=== PATIENT | female | born 1995 | race Caucasian/White ===

== ENCOUNTER 2019-02-18 23:36 | Emergency (ER) | payer BC, SELFPAY ==
[2019-02-18 23:37] VITALS: BP 161/85; PULSE 124; RESP 26; TEMP 36.8; O2SAT 99; BMI 36.7
--- NOTE | 2019-02-18 23:40 | EKG12_ITS ---
Test Reason : CP Blood Pressure : / mmHG Vent. Rate : 111 BPM Atrial Rate : 111 BPM P-R Int : 170 ms QRS Dur : 096 ms QT Int : 346 ms P-R-T Axes : 051 028 011 degrees QTc Int : 470 ms Sinus tachycardia RSR' or QR pattern in V1 suggests right ventricular conduction delay Nonspecific ST and T wave abnormality Abnormal ECG Confirmed by GABY YIN, DEJON ([id number]), offline editor ROBB REN ([id number]) on 02/20/2019 10:33:29 AM Referred By: JULIA Confirmed By:GUDELIA GRIFFIN MD
--- NOTE | 2019-02-18 23:41 | ED.VIS.GEN ---
History of Present Illness Chief Complaint: Chest Pain Informant: Patient Onset: Today Context: Sudden Onset Timing: Continuous Current Severity: Moderate Maximum Severity: Moderate Narrative: The patient is a 23-year-old female with no significant medical history that presents to the emergency department with heart racing. Patient states that it is been going on for the past 45 minutes. She states that she was just getting ready to go to bed. She felt like her heart was pounding out of her chest. She denies any shortness of breath or pain. She denies any nausea or vomiting. She denies any alcohol, caffeine, or nicotine use. She states she is never had anything like this before. She is on no daily medications. She is otherwise been in her normal state of health. Prior similar symptoms: No Recent Illness/Hospitalization: No Past Medical History - Allergies and Home Meds Allergies/Adverse Reactions: Allergies No Known Allergies Allergy (Verified 12/12/15 16:35) Primary Care Physician: NOT,DEFINED [NON-STAFF] - Prior records reviewed: Yes Past Medical History: None Surgical History: no surgical history Smoking Status: Never smoker Review of Systems General: Denies: Chills, Fever, Sweats Eyes: Denies: Visual changes - bilaterally, Diplopia ENT: Denies: Rhinorrhea, Sore throat Cardiovascular: Reports: Palpitations, Heart racing. Denies: Chest pain Respiratory: Denies: Dyspnea, Cough, Dyspnea on exertion Gastrointestinal: Denies: Abdominal pain, Nausea, Vomiting, Diarrhea, Melena, Hematochezia Genitourinary: Denies: Dysuria, Hematuria, Frequency Musculoskeletal: Denies: Back pain, Extremity Pain Skin: Denies: Rash, Wounds Neurological: Denies: Headache, Weakness, Numbness Physical Exam Inital Vital Signs reviewed: Yes General: Well nourished, Well developed, No Acute Distress Head: Normocephalic, Atraumatic Eyes: Perrl, EOMI ENT: Moist mucous membranes, No rhinorrhea Neck: Supple, Nontender Cardiovascular: Regular rate, Regular rhythm, No murmurs Respiratory: No distress, CTA bilaterally, Chest nontender Abdomen: Soft, Nontender, Nondistended, Normal bowel sounds Back: Nontender, Normal Inspection Extremities: Nontender, No edema Skin: Normal color, No rash Neurological: Alert, Oriented x3, Cranial nerves II-XII grossly intact, Normal Strength, Normal Sensation Psychological: Normal affect, Normal Mood Diagnostic/Tx/Re-eval - Rhythm Strip Rhythm Strip: Sinus Tach Rate: 120 Ectopy: None - EKG Initial EKG Interpretation: No Acute Injury Pattern, Sinus Tachycardia Prior: No Prior - Medical Decision Making The patient presents with sensation that her heart was racing. EKG was done immediately on arrival. It showed sinus tachycardia at a rate of 111. There was no acute ischemia. The patient currently has no chest pain. She just feels like her heart is been racing. Metabolic work-up was pursued. The patient was given fluids and Ativan. Within 15 minutes, her heart rate was down to the 90s. The patient was found to be hypokalemic, but has no significant EKG changes. This was replaced orally. She is not had diarrhea. She states she is been eating a normal diet. I am going to place her on potassium replacement for the next week. Again, her heart rate was now in the 90s. She is totally asymptomatic. I do feel that she is safe for outpatient therapy. Impression 1. Tachycardia 2. Hypokalemia ED Disposition - Plan for ED Patient: Instructions: Palpitations, Hypokalemia Prescriptions: Potassium Chloride [K-Dur] 20 meq PO DAILY #7 tab Prescription Printed Referrals: NOT,DEFINED [NON-STAFF] -
--- NOTE | 2019-02-18 23:49 | ED.RN ---
NO OLD EKG
[2019-02-18] MEDS: 0.9% Normal Saline 1,000 ML 1000 ML IV (23:51)
[2019-02-18] MEDS: LORazepam 2 MG/ML Syringe 0.5 MG IV (23:51)
[2019-02-18 23:52] LABS: Absolute Lymphocyte Count 3.78 X10^3/uL (0.83-4.51); Absolute Neutrophil Count 3.9 X10^3/uL (2.0-7.7); Basophil# 0.06 X10^3/uL; Basophil% 0.7 % (0-1); Eosinophil# 0.48 X10^3/uL; Eosinophils% 5.3 % (0-5); Hematocrit 37.3 % (37-47); Hemoglobin 12.7 g/dL (12.0-15.0); Lymphocyte # 3.78 X10^3/ul (4.0); Lymphocyte % 42.1 % (19-41); Mean Corpuscular Hgb 29.6 pg (27.0-32.0); Mean Corpuscular Volume 86.9 fL (81-99); Monocyte# 0.74 X10^3/uL; Monocyte% 8.2 % (0-10); NRBC Flagged by Analyzer 0 % (0-5); Neutrophil % 43.5 % (47-70); Platelet Count 289 K/mm3 (150-450); RBC Distribution Width CV 11.6 % (11.6-14.6); RBC Distribution Width SD 36.5 fl (35.1-43.9); Red Blood Count 4.29 M/mm3 (4.2-5.4)
[2019-02-19 00:16] LABS: Internal QC Validated? YES +Cl - CLEAR BKGD; Pregnancy, Serum, hCG Quali. NEGATIVE Negative
[2019-02-19 00:29] LABS: ALB/GLOB Ratio 1.1 RATIO (0.9-2.4); AST(SGOT) 17 U/L (15-37); Alanine Aminotransfer ALT/SGPT 21 U/L (13-56); Alkaline Phosphatase 83 U/L (45-117); Anion Gap 10 (5-15); BUN 16 mg/dL (7-18); BUN/Creat Ratio 17.5 RATIO (10-20); Chloride 107 mmol/L (98-107); Creatinine, Serum 0.91 mg/dL (0.55-1.02); EST Glomerular Filtration Rate 82 mL/min (>60); Est Glom Filt Rate - Afr Amer 99 mL/min (>60); Estimated Creatinine Clearance 83.74 ml/min; Globulin 3.5 g/dL (2.2-4.2); Glucose 119 mg/dL (74-106); Magnesium 2.2 mg/dL (1.6-2.6); Potassium 3.1 mmol/L (3.5-5.1); Protein, Total 7.5 g/dL (6.4-8.2); Sodium Level 139 mmol/L (136-145); Thyroid Stim Hormone (TSH) 2.62 uIU/mL (0.358-3.74)
[2019-02-19 00:50] VITALS: BP 132/83; PULSE 101; RESP 18
== END 2019-02-19 01:03 | disposition home or self-care (01) ==
PROVIDERS: Emergency Provider Emergency Medicine
DX: R00.0 Tachycardia, unspecified (principal); E87.6 Hypokalemia
CPT/HCPCS: 80053; 83735; 84443; 84703; 85025; 93005; 96361; 96374; 99285; J7030; A4216

== ENCOUNTER 2020-04-16 18:20 | Outpatient (CLI) | payer BC, SELFPAY ==
[2020-04-16 18:37] VITALS: BMI 33.3
[2020-04-16 18:45] VITALS: BP 137/77; PULSE 94; TEMP 36.9; O2SAT 98
[2020-04-16 19:04] LABS: Mucous, Urine 0 SEEN /hpf (<or=2+); Red Blood Cells-Urine 0 SEEN /hpf (0-5)
[2020-04-16 19:05] LABS: Color, Urine Yellow (Yellow); Glucose, Dipstick Normal (Normal); Ketone-Dipstick Negative (Negative); Leukocyte Esterase-Dipstick 100 /ul (Negative); Nitrite-Dipstick Negative (Negative); Occult Blood-Urine Negative /ul (Negative); Protein-Dipstick Negative (Negative); Urine Bilirubin Dipstick Negative (Negative); Urine Clarity Cloudy (Clear); Urine Urobilinogen 1 mg/dl (Normal)
[2020-04-16 19:11] LABS: Amorphous Sediment 2+; Squamous Epithelial Cells - UA 0-5 SEEN /hpf (5-10)
[2020-04-16 19:12] LABS: Bacteria 1+ /hpf (None Seen)
[2020-04-16 19:13] LABS: White Blood Cells 0-5 SEEN /hpf (0-5)
[2020-04-16 19:16] LABS: Coarse Granular Cast 0-5 SEEN /lpf (0-5 /lpf); Fine Granular Cast- Urine 0 SEEN /lpf (0-5)
[2020-04-16 20:06] VITALS: BP 138/73; PULSE 88; TEMP 36.7; O2SAT 99
--- NOTE | 2020-04-17 19:56 | OB.TRI.HP_ITS ---
- Problem List (1) 34 weeks gestation of Status: Acute (2) Decreased movement Status: Acute History of Present Illness Date of Service: 04/16/20 Reason For Visit: DECREASED MOVEMENT & CRAMPING Date of Service: 04/16/20 Final FARTUN: 05/27/20 Gestational age: 34 Weeks and 2 Days History of Present Illness: Patient to labor and delivery triage with c/o cramps, and decreased movement. Patient reports no loss of fluid or vaginal bleeding. Has felt baby move but not within normal limits. Allergies No Known Allergies Allergy (Verified 04/16/20 20:09) Laboratory Studies: Laboratory Tests 04/16/20 Range/Units 18:35 Urine Color Yellow (Yellow) Urine Clarity Cloudy (Clear) Urine pH 7.0 (5.0 - 8.0) Ur Specific [place] 1.010 (1.002-1.030) Urine Protein Negative (Negative) mg/dl Urine Glucose (UA) Normal (Normal) mg/dl Urine Ketones Negative (Negative) mg/dl Urine Occult Blood Negative (Negative) /ul Urine Nitrite Negative (Negative) Urine Bilirubin Negative (Negative) mg/dL Urine Urobilinogen 1 H (Normal) mg/dl Ur Leukocyte Esterase 100 H (Negative) /ul Urine RBC 0 SEEN (0-5) /hpf Urine WBC 0-5 SEEN (0-5) /hpf Ur Squamous Epith Cells 0-5 SEEN (5-10) /hpf Amorphous Sediment 2+ Urine Bacteria 1+ (None Seen) /hpf Fine Granular Casts 0 SEEN (0-5) /lpf Coarse Granular Casts 0-5 SEEN (0-5 /lpf) /lpf Urine Mucus 0 SEEN (<or=2+) /hpf Review of Systems Constitutional: Denies: Chills, Fever, Weight Change HEENT: Denies: Head Aches, Sinus Congestion, Sinus Drainage Cardiovascular: Denies: Chest Pain, Palpitations Respiratory: Denies: Cough, Shortness of breath at rest, Sputum production Gastrointestinal: Denies: Abdominal Pain, Nausea, Vomiting Genitourinary: Denies: Dysuria Physical Exam Vitals: Vital Signs Temp Pulse BP Pulse Ox 98.0 F 88 138/73 H 99 04/16/20 20:06 04/16/20 20:06 04/16/20 20:06 04/16/20 20:06 General: Alert HEENT: Atraumatic Cardiovascular: Regular rate Lungs: Normal air movement Abdomen: Soft, Non Tender, Gravid Neurological: Cranial nerves II-XII grossly intact, Deep Tendon Reflexes 2+/4 and Symmetrical NST - FHR Rate Baby A Baseline: 125 Variability:: Moderate Accelerations:: 15 x 15 Decelerations:: None NST Reactive:: Yes FHR Category:: Category I Uterine Activity:: None noted via TOCO or palpation Impression/Plan at 34.2 weeks gestation with decreased movement and mild cramping. Category 1 tracing, NST reactive No contractions via TOCO or palpation UA collected and sent- normal patient reports feeling movement increase since arrival D/C home with PTL and kick counts reviewed Dr. Murillo updated on patient's status
== END 2020-04-16 20:20 | disposition home or self-care (01) ==
LOC: WPOUT 18:36 → WP 18:37
PROVIDERS: PCP Family Medicine; Visit Provider Advanced Practice Midwife
DX: O36.8130 Decreased fetal movements, third trimester, not applicable or unspecified (principal); Z3A.34 34 weeks gestation of pregnancy
CPT/HCPCS: 59025; 59050; 81001; 99218; G0378

== ENCOUNTER 2020-05-16 19:45 | Inpatient (IN) | payer BC, SELFPAY ==
[2020-05-16] VITALS (32 sets, daily range): BP systolic 99–155; BP diastolic 54–101; PULSE 76–125; TEMP 36.4–37.2; O2SAT 87–100; BMI 34.0
[2020-05-16] MEDS: Lactated Ringers 1,000 ML 200 ML IV (19:35)
[2020-05-16] MEDS: Lactated Ringers 500 ML 999 ML IV (19:35)
[2020-05-16 19:52] LABS: Absolute Lymphocyte Count 1.78 X10^3/uL (0.83-4.51); Absolute Neutrophil Count 9.3 X10^3/uL (2.0-7.7); Basophil# 0.04 X10^3/uL; Basophil% 0.3 % (0-1); Eosinophil# 0.36 X10^3/uL; Eosinophils% 2.9 % (0-5); Hematocrit 32.7 % (37-47); Hemoglobin 11.2 g/dL (12.0-15.0); Lymphocyte # 1.78 X10^3/ul (4.0); Lymphocyte % 14.5 % (19-41); Mean Corp Hgb Conc 34.3 g/dL (32-36); Mean Corpuscular Hgb 30.8 pg (27.0-32.0); Mean Corpuscular Volume 89.8 fL (81-99); Mean Platelet Vol. 10.8 fl (6.2-12.0); Monocyte# 0.76 X10^3/uL; Monocyte% 6.2 % (0-10); NRBC Flagged by Analyzer 0 % (0-5); Neutrophil # 9.29 X10^3/uL (2.7-7.7); Neutrophil % 75.5 % (47-70); Platelet Count 205 K/mm3 (150-450); RBC Distribution Width CV 12.7 % (11.6-14.6); RBC Distribution Width SD 41.4 fl (35.1-43.9); Red Blood Count 3.64 M/mm3 (4.2-5.4); White Blood Count 12.3 K/mm3 (4.4-11.0)
--- NOTE | 2020-05-16 20:27 | HP.PCM_ITS ---
- Problem List (1) Obesity affecting Status: Acute (2) History of depression Status: Acute (3) Anxiety Status: Acute History Date of Admission: 01/03/16 Final FARTUN: 05/27/20 Gestational age: 38 Weeks and 3 Days History of this : This is a 24 year-old, G [2], P [1001], at 38 weeks 3 days gestational age. Was seen in office and cervix found to be 5 cm and requested membrane sweep.Patient presents to labor and delivery at 1400 today with contractions. Patient progressed to 6 cm dilated and admitted to labor and delivery in active labor. Denies any headache, chest pain, shortness of breath, vaginal bleeding, leakage of fluid. Good movement. complicated by obesity, depression. Allergies buspirone [From BuSpar] Adverse Reaction (Verified 05/16/20 20:18) Other dizziness/headache escitalopram [From Lexapro] Adverse Reaction (Verified 05/16/20 20:18) Other hallucination Home Medications: Home Medications Vits [Prenatabs FA] 1 tablet PO DAILY 01/03/16 Smoking Status: Never smoker Alcohol: None Number of Fetus(es): 1 NST - FHR Rate Baby A Baseline: 125 Variability:: Moderate Accelerations:: 15 x 15 Decelerations:: None FHR Category:: Category I Uterine Activity:: Every 2-3 minutes, strong History Past Pregnancies: Past Pregnancies Delivery Date Name GA/ Weeks Outcome Route Wt Sex Labor Length Anesthesia Delivery Location Provider FOB Labs: Mom's Microbiology 05/16/20 19:45 Mucosa - Nasopharyngeal SARS-CoV-2 Antigen (Rapid) - Pending Mom's Problem List Problem Status Onset Code Obesity affecting Acute O99.210 History of depression Acute Z87.59, Z86.59 Anxiety Acute F41.9 Mom's Labs & Results 05/16/20 05/16/20 19:35 19:35 WBC 12.3 H RBC 3.64 L Hgb 11.2 L Hct 32.7 L MCV 89.8 MCH 30.8 MCHC 34.3 RDW Std Deviation 41.4 RDW Coeff of Ricarda 12.7 Plt Count 205 MPV 10.8 Immature Gran % (Auto) 0.600 Neut % (Auto) 75.5 H Lymph % (Auto) 14.5 L [place] % (Auto) 6.2 Eos % (Auto) 2.9 Baso % (Auto) 0.3 Absolute Neuts (auto) 9.3 H Absolute Lymphs (auto) 1.78 Nucleated RBC % 0 Blood Type Pending Antibody Screen Pending Course Did the patient receive Yes care? Labs Blood Type: A RH: POSITIVE RPR/VDRL/Syphilis Nonreactive Rubella status Immune HbSAg Negative Date Done: 10/17/19 Chlamydia Negative Gonorrhea Negative HIV/AIDS Non-Reactive Group B Strep: Negative Current Obstetrical History Gestational Diabetes No Incompetent Cervix No Infertility No IUGR No Macrosomia No Hypertension/Pre-eclampsia No Placenta Previa/Abruption No PTL/PROM No Uterine anomaly No Oligohydramnios No Polyhydramnios No Multiple gestation No Past Medical History Asthma No Diabetes No Hypertension No Heart disease No Mitral valve prolapse No Neurologic/Seizure disorder/ No Migraines Kidney disease No Liver disease No Varicosities No Clotting disorders/Hx of DVT No Thyroid Dysfunction No Other medical diseases No Psychiatric disorders Yes: depression, anxiety, PPD Major trauma No Abnormal PAP smear No Sleep apnea No Mammogram in the last 2 years No Social History Marital Status: Alleged father Valentino Hx Smoking No Smoking Status Never smoker How long have you used n/a substances (years)? Expected Infant Delivery Method: Spontaneous Vaginal Review of Systems Constitutional: Denies: Chills, Fever, Weight Change HEENT: Denies: Head Aches, Sinus Congestion, Sinus Drainage Cardiovascular: Denies: Chest Pain, Palpitations Respiratory: Denies: Cough, Shortness of breath at rest, Sputum production Gastrointestinal: Denies: Abdominal Pain, Nausea, Vomiting Genitourinary: Denies: Dysuria Musculoskeletal: Denies: Joint Pain, Joint Tenderness Skin: Denies: Rash, Wounds Neurological: Denies: Numbness, Tingling, Focal weakness Psychiatric: Denies: Anxiety, Depression, Homicidal Ideations, Suicidal Ideations Hematologic/ Lymphatic: Denies: Easy Bruising, Easy Bleeding Physical Exam Vitals: Vital Signs Temp Pulse BP Pulse Ox 98.9 F 99 145/90 H 100 05/16/20 20:14 05/16/20 20:15 05/16/20 20:15 05/16/20 20:14 General: Alert, Oriented x3, Cooperative HEENT: Atraumatic, Normocephalic Cardiovascular: Regular rate, Regular Rhythm, No murmurs Lungs: Clear to auscultation, Normal air movement, No rhonchi, No wheeze Abdomen: Bowel Sounds Present, Soft Extremities:: No edema Neurological: Deep Tendon Reflexes 2+/4 and Symmetrical. Negative for: Clonus CARD MOUNTER: Normal external genitalia Estimated gestational size: Appropriate for gestational size Presentation: Cephalic Cervix Dilation (cm): 6.5 - AROM moderate amount of clear fluid. Tolerated well. Station: -1 Effacement (%): 80 Assessment/Plan All Active Problems 34 weeks gestation of (Acute) Decreased movement (Acute) Obesity affecting (Acute) History of depression (Acute) Anxiety (Acute) This is a 24 year-old, G [2], P [1001], at 38 weeks 3 days gestational age. A:Active Labor at term Category 1 FHT P: 1) Admit to labor and delivery 2) Routine labs 3) GBS negative 4) Continuous EFM 5) Epidural for pain management 6) collaborative physician and notified of patient status and admission.
[2020-05-16] MEDS: fentaNYL-bupivacaine (epidural) 100 ML BAG EPIDURAL (20:48)
[2020-05-16] MEDS: Oxytocin 30 units/NS 500 ml 30 UNITS/500 ML IV.SOLN 334 UNITS IV (21:13)
--- NOTE | 2020-05-16 21:25 | PCM.OPRPT ---
Problem List (1) Obesity affecting Status: Acute (2) History of depression Status: Acute (3) Anxiety Status: Acute (4) Vaginal delivery Status: Acute Vaginal Delivery Maternal Presentation: Active Labor Amniotic Membrane Rupture Type: Artificial Amniotic Fluid Description: Clear, Cloudy Final FARTUN: 05/27/20 Final FARTUN Source: US <20 weeks Gestational age: 38 Weeks and 3 Days Date of Procedure: 05/16/20 Pre-Operative Diagnosis: Active labor at term Post-Operative Diagnosis: Surgery/ Procedure Performed: Spontaneous Vaginal Delivery Type of Anesthesia: Epidural Description of Procedure: Progressed to complete with strong urge to push. Epidural placed but minimal relief from pelvic pressure. of viable male over intact perineum. Apgars 7, 9. Infant head delivered and body forthcoming. Cord wrapped around the neck x1 loose, delivered through. Infant placed on maternal abdomen. Mouth and nares suction for secretions. Spontaneous cry. Cord clamped and cut after 1 minute delayed clamping. Infant with weak cry and taken to [facility] by awaiting nursery staff for further assessment. Pitocin started for active third stage management with strong cry, good color and normal heart rate and back to mom for skin to skin. Placenta delivered with expression intact, and three-vessel cord. Perineum inspected and intact, no laceration or repair required. Fundus firm, EBL 100 mL. Vaginal sweep completed by me. Sponge and instrument count correct. Mom and baby stable, family bonding well. Planning to breast-feed. Dr. Jeff notified of delivery. Presentation: Vertex Placental Delivery Description: Spontaneous Placenta Disposition: [facility] Cord Vessel Description: 3 Vessels Nuchal Cord Compression: Without compression Cord Entanglement: Around neck x 1, loose Estimated Blood Loss: 100 ml A gender: Male (1 minute): 7 (5 minute): 9 Episiotomy Description: None Laceration: None Medications given after delivery: IV Pitocin
[2020-05-16] MEDS: 0.9% Saline Lock 10 ML Syringe IV (23:58)
[2020-05-17 03:03] VITALS: BP 123/76; PULSE 69; RESP 16; TEMP 36.5
[2020-05-17] MEDS: Ibuprofen 600 MG Tablet PO ×2 (06:09→15:22)
[2020-05-17] MEDS: Acetaminophen 500 MG Tablet 1000 MG PO ×2 (09:01→21:02)
[2020-05-17 09:12] VITALS: BP 118/74; PULSE 82; RESP 16; TEMP 36.6
[2020-05-17 12:53] VITALS: BP 117/81; PULSE 79; RESP 16; TEMP 36.1
[2020-05-17 13:14] LABS: Hematocrit 33.6 % (37-47); Hemoglobin 11.4 g/dL (12.0-15.0); Mean Corp Hgb Conc 33.9 g/dL (32-36); Mean Corpuscular Hgb 30.6 pg (27.0-32.0); Mean Corpuscular Volume 90.1 fL (81-99); Mean Platelet Vol. 10.7 fl (6.2-12.0); Platelet Count 225 K/mm3 (150-450); RBC Distribution Width CV 12.3 % (11.6-14.6); RBC Distribution Width SD 39.9 fl (35.1-43.9); Red Blood Count 3.73 M/mm3 (4.2-5.4); White Blood Count 12.1 K/mm3 (4.4-11.0)
--- NOTE | 2020-05-17 13:23 | CASEMGMT ---
Social Work Assessment Labor and Delivery Unit Date/Time of Referral: 05/17/20, 1:50am Referred by: Noni Nicholson CNM Date/Time of Intervention: 05/17/20, 1:00pm Reason for referral: History of PPD, anxiety, depression History obtained from: FOREIGN, JARED Household composition: JARED CARRASQUILLO, 4 yr old Argelia and now baby Casper. MOB and FOJustus have been together for 7 years. Baby's parent/guardian status: MOB/FOB guardians of baby Medical history: MOB: Obesity, hx of PPD and anxiety. Baby: Born 05/16/20, 21:15, 3.05kg. Apgars at 1 min and 5 min, 7 and 9. 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 Educational Status: Both MOB and FOB finished high school Financial Status: No concerns. 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 MOB works at [employer]. MOB on maternity leave and will return to work. They have a baby counselor and JARED's mother also helps with childcare. Infant Supplies: They have all supplies including crib, bassinet, diapers, clothing, car seat. MOB plans to breast feed. Childcare/Caregivers: [employer], JARED's mother. Also MOB's mother, siblings of MOB and FOB as well available to help. Transportation: They have 2 cars Programs/Agencies involved: None Children Services/Legal Issues: None Behavioral Health: Substance abuse: None for MOB or JARED. No tox screens completed. Safety: No concerns regarding safety Mental Health: JARED--has history of depression, has a counselor but would like to find a new counselor as he does not feel he connects with current counselor. JARED has been on and off of medication for depression, wants to look to trying something different. JARED states has been in counseling many times. JARED talked about a difficult relationship w/his own father and just had a breakthrough recently with his father and their relationship. He talked about not wanting to carry his anger with his father to his children, and has started recently gaining more insight into his relationship w/his father. MOB--She states has anxiety and sees a counselor one time per week virtually with [facility]. She plans to continue this. She states she did struggle with after the of her last child. She states she has been on meds in the past but did not like the side effects, and has not been taking anything while . She states the counseling has been very helpful for her and she does not feel she needs to go back on meds. She states she would consider it if needed for a short time, should she struggle again with depression. Depression/Anxiety, Shaken Baby, Safe Sleeping: SW gave MOB and FOB information on these topics and reviewed the information with them. SW also gave them information on [facility], a list of [facility] Resources, highlighting the crisis number, and a list of counseling agencies in [facility]. SW encourage FOB to review the list or to call the number on the back of his insurance card to find a new in network provider for himself. He states he has been going to [facility] on the recommendation of his mom(she goes there due to involvement with [facility]), gut he is realizing that they focus more on people with substance abuse issues as well. He does not have this issue however and plans to find a new counselor for himself. FOB was holding baby while SW was speaking with MOB and FOB, handed the baby to MOB while we were talking stating the baby was hungry. Both MOB and FOB appropriate in holding and handling of the baby. Both FOB and MOB open in speaking w/SW, appropriate. No concerns at this time, baby home with MOB and FOB at discharge. WILLIS Burgess
--- NOTE | 2020-05-17 14:03 | PCM.PN.OB ---
Patient Problems: Active and Suspected Problems Obesity affecting (Acute) History of depression (Acute) Anxiety (Acute) Vaginal delivery (Acute) Subjective: Denies complaints - Physical Exam Vitals/I&O's: Vital Signs Temp Pulse Resp BP Pulse Ox 97.0 F L 79 16 117/81 H 99 05/17/20 12:53 05/17/20 12:53 05/17/20 12:53 05/17/20 12:53 05/16/20 23:20 Oxygen Delivery Method Room Air Weight: 198 lb Body Mass Index (BMI) 34.0 Intake and Output for Last 24 Hours 05/15/20 05/16/20 05/17/20 23:59 23:59 23:59 Intake Total 1820 / 1820 Output Total 1200 / 1200 Balance 1820 / 1820 -1200 / -1200 General: Alert, Oriented x3 Abdomen: Soft, Non Tender, Non-Distended - ff mid & below umb Extremities: No Calf Tenderness Microbiology Past 72 Hours 05/16/20 19:45 Mucosa - Nasopharyngeal SARS-CoV-2 Antigen (Rapid) - Final Laboratory Results 05/16/20 19:35: WBC 12.3 H, RBC 3.64 L, Hgb 11.2 L, Hct 32.7 L, MCV 89.8, MCH 30.8, MCHC 34.3, RDW Std Deviation 41.4, RDW Coeff of Ricarda 12.7, Plt Count 205, MPV 10.8, Immature Gran % (Auto) 0.600, Neut % (Auto) 75.5 H, Lymph % (Auto) 14.5 L, [place] % (Auto) 6.2, Eos % (Auto) 2.9, Baso % (Auto) 0.3, Absolute Neuts (auto) 9.3 H, Absolute Lymphs (auto) 1.78, Nucleated RBC % 0 05/16/20 19:35: Blood Type A POSITIVE, Antibody Screen NEGATIVE 05/17/20 13:00: WBC 12.1 H, RBC 3.73 L, Hgb 11.4 L, Hct 33.6 L, MCV 90.1, MCH 30.6, MCHC 33.9, RDW Std Deviation 39.9, RDW Coeff of Ricarda 12.3, Plt Count 225, MPV 10.7 Current Medications Acetaminophen (Acetaminophen 500 Mg Tablet) 1,000 mg PO Q8H PRN PRN PRN Reason: Pain Score 1-3 Last Admin: 05/17/20 09:01 Dose: 1,000 mg Documented by: Bisacodyl (Bisacodyl 10 Mg Suppository) 10 mg RC UD PRN PRN Reason: If no BM Dibucaine (Dibucaine 30 Gm Tube) 1 applic TOPICAL TID PRN PRN; Protocol PRN Reason: Discomfort Hydrocortisone (Hydrocortisone 2.5% Crm) 1 applic TOPICAL TID PRN PRN; Protocol PRN Reason: Discomfort Ibuprofen (Ibuprofen 600 Mg Tablet) 600 mg PO Q6H PRN PRN PRN Reason: Pain Score 1-3 Last Admin: 05/17/20 06:09 Dose: 600 mg Documented by: Methylergonovine Maleate (Methylergonovine 0.2 Mg/Ml Ampul) 0.2 mg IM X1 PRN PRN Reason: Excess bleeding/uterine atony Ondansetron HCl (Ondansetron 4 Mg/2 Ml Vial) 4 mg IV Q4H PRN PRN PRN Reason: Nausea Senna/Docusate Sodium (Senna/Docusate Sodium 1 Tablet) 1 - 2 tablet PO DAILY PRN PRN PRN Reason: Constipation Simethicone (Simethicone 80 Mg Tablet) 80 mg PO PCHS PRN PRN Reason: Indigestion/Stomach pain Sodium Chloride (0.9% Saline Lock 10 Ml Syringe) 5 - 15 ml IV UD PRN PRN Reason: SALINE FLUSH Last Admin: 05/16/20 23:58 Dose: 10 ml Documented by: Medical Necessity - Tobacco Use Smoking Status: Never smoker Assessment/Plan All Active Problems 34 weeks gestation of (Acute) Decreased movement (Acute) Obesity affecting (Acute) History of depression (Acute) Anxiety (Acute) Vaginal delivery (Acute) PPD#1 Routine care
[2020-05-17 15:30] VITALS: BP 132/70; PULSE 78; RESP 16; TEMP 36.6
[2020-05-17 21:05] VITALS: BP 123/69; PULSE 83; RESP 18; TEMP 36.6; O2SAT 98
[2020-05-18 02:12] VITALS: BP 121/78; PULSE 83; RESP 16; O2SAT 97
[2020-05-18] MEDS: Ibuprofen 600 MG Tablet PO (02:30)
[2020-05-18 08:55] VITALS: BP 125/76; PULSE 78; RESP 16; TEMP 36.9
--- NOTE | 2020-05-18 09:27 | PCM.PN.OB ---
Patient Problems: Active and Suspected Problems Obesity affecting (Acute) History of depression (Acute) Anxiety (Acute) Vaginal delivery (Acute) Subjective: pain well controlled, average lochia - Physical Exam Vitals/I&O's: Vital Signs Temp Pulse Resp BP Pulse Ox 98.5 F 78 16 125/76 H 97 05/18/20 08:55 05/18/20 08:55 05/18/20 08:55 05/18/20 08:55 05/18/20 02:12 Oxygen Delivery Method Room Air Weight: 89.811 kg Body Mass Index (BMI) 34.0 Intake and Output for Last 24 Hours 05/16/20 05/17/20 05/18/20 23:59 23:59 23:59 Intake Total 1820 / 1820 Output Total 1200 / 1200 Balance 1820 / 1820 -1200 / -1200 General: Alert, Cooperative, No apparent distress Microbiology Past 72 Hours 05/16/20 19:45 Mucosa - Nasopharyngeal SARS-CoV-2 Antigen (Rapid) - Final Laboratory Results 05/17/20 13:00: WBC 12.1 H, RBC 3.73 L, Hgb 11.4 L, Hct 33.6 L, MCV 90.1, MCH 30.6, MCHC 33.9, RDW Std Deviation 39.9, RDW Coeff of Ricarda 12.3, Plt Count 225, MPV 10.7 Current Medications Acetaminophen (Acetaminophen 500 Mg Tablet) 1,000 mg PO Q8H PRN PRN PRN Reason: Pain Score 1-3 Last Admin: 05/17/20 21:02 Dose: 1,000 mg Documented by: Bisacodyl (Bisacodyl 10 Mg Suppository) 10 mg RC UD PRN PRN Reason: If no BM Dibucaine (Dibucaine 30 Gm Tube) 1 applic TOPICAL TID PRN PRN; Protocol PRN Reason: Discomfort Hydrocortisone (Hydrocortisone 2.5% Crm) 1 applic TOPICAL TID PRN PRN; Protocol PRN Reason: Discomfort Ibuprofen (Ibuprofen 600 Mg Tablet) 600 mg PO Q6H PRN PRN PRN Reason: Pain Score 1-3 Last Admin: 05/18/20 02:30 Dose: 600 mg Documented by: Methylergonovine Maleate (Methylergonovine 0.2 Mg/Ml Ampul) 0.2 mg IM X1 PRN PRN Reason: Excess bleeding/uterine atony Ondansetron HCl (Ondansetron 4 Mg/2 Ml Vial) 4 mg IV Q4H PRN PRN PRN Reason: Nausea Senna/Docusate Sodium (Senna/Docusate Sodium 1 Tablet) 1 - 2 tablet PO DAILY PRN PRN PRN Reason: Constipation Simethicone (Simethicone 80 Mg Tablet) 80 mg PO PCHS PRN PRN Reason: Indigestion/Stomach pain Sodium Chloride (0.9% Saline Lock 10 Ml Syringe) 5 - 15 ml IV UD PRN PRN Reason: SALINE FLUSH Last Admin: 05/16/20 23:58 Dose: 10 ml Documented by: Medical Necessity - Tobacco Use Smoking Status: Never smoker Assessment/Plan All Active Problems 34 weeks gestation of (Acute) Decreased movement (Acute) Obesity affecting (Acute) History of depression (Acute) Anxiety (Acute) Vaginal delivery (Acute) PPD#2 doing well ready for d/c infant and doing well
--- NOTE | 2020-05-18 09:28 | DCINST_ITS ---
Discharge Diet: No Restrictions Discharge Activity: Return to Normal Activity, May not drive while taking narcotic pain medications., May Shower May resume sexual activity in: 4-6 weeks Additional Activity Instructions:: Nothing in the vagina for 4-6 weeks. You may return to work/school in 6 weeks. Call your doctor if your incision/area has: Continuous Slow Oozing, Sudden Increased Bleeding, Increased Pain/ Swelling, Increased Redness, Foul Smelling Discharge Additional Instructions: If you experience any of the following, contact your healthcare provider. * Bleeding that soaks a pad every hour for 2 hours * Fever 100.4 or higher * Unrelieved incision or abdominal pain * Swelling, redness, discharge or bleeding from your incision or episiotomy site * Your incision begins to separate * Problems urinating (including inability to urinate or burning while urinating). * Visual changes * Severe headache * Flu-like symptoms * Pain or redness in one of both of your breasts * Pain, warmth, tenderness or swelling in your legs, especially the calf area * Frequent nausea and vomiting * Symptoms of depression or anxiety If you experience any of the following, call 911 or go to the nearest Emergency Room. * Chest pain * Problems breathing * Seizure activity * Partial or complete paralysis of a body part, slurred speech, weakness or drooping of the face, or a sudden inability to walk or hold your balance Allergies/Adverse Reactions: Allergies buspirone [From BuSpar] Adverse Reaction (Verified 05/16/20 20:18) Other dizziness/headache escitalopram [From Lexapro] Adverse Reaction (Verified 05/16/20 20:18) Other hallucination Medications to take at Discharge Vits [Prenatabs FA] 1 tablet PO DAILY 01/03/16 Please Follow Up With: Sheila Hurt MD - [phone] When: Call to make an appointment with your doctor's office in 1-2 and 6 weeks or as needed Primary Care Physician: Zechariah Chaudhary MD [Primary Care Provider] - Test Results: Test results from this visit will be discussed in further detail at your follow- up appointment, if applicable.
--- NOTE | 2020-05-18 09:28 | PCM.DCVAG ---
Discharge Diet: No Restrictions Discharge Activity: Return to Normal Activity, May not drive while taking narcotic pain medications., May Shower May resume sexual activity in: 4-6 weeks Additional Activity Instructions:: Nothing in the vagina for 4-6 weeks. You may return to work/school in 6 weeks. Call your doctor if your incision/area has: Continuous Slow Oozing, Sudden Increased Bleeding, Increased Pain/ Swelling, Increased Redness, Foul Smelling Discharge Additional Instructions: If you experience any of the following, contact your healthcare provider. Bleeding that soaks a pad every hour for 2 hours Fever 100.4 or higher Unrelieved incision or abdominal pain Swelling, redness, discharge or bleeding from your incision or episiotomy site Your incision begins to separate Problems urinating (including inability to urinate or burning while urinating). Visual changes Severe headache Flu-like symptoms Pain or redness in one of both of your breasts Pain, warmth, tenderness or swelling in your legs, especially the calf area Frequent nausea and vomiting Symptoms of depression or anxiety If you experience any of the following, call 911 or go to the nearest Emergency Room. Chest pain Problems breathing Seizure activity Partial or complete paralysis of a body part, slurred speech, weakness or drooping of the face, or a sudden inability to walk or hold your balance Allergies/Adverse Reactions: Allergies buspirone [From BuSpar] Adverse Reaction (Verified 05/16/20 20:18) Other dizziness/headache escitalopram [From Lexapro] Adverse Reaction (Verified 05/16/20 20:18) Other hallucination Medications to take at Discharge Vits [Prenatabs FA] 1 tablet PO DAILY 01/03/16 Please Follow Up With: Sheila Hurt MD - [phone] When: Call to make an appointment with your doctor's office in 1-2 and 6 weeks or as needed Primary Care Physician: Zechariah Chaudhary MD [Primary Care Provider] - Test Results: Test results from this visit will be discussed in further detail at your follow-up appointment, if applicable.
== END 2020-05-18 12:20 | disposition home or self-care (01) | DRG 807 ==
LOC: WPOUT 19:48 → WP 19:48
PROVIDERS: Admitting Provider Advanced Practice Midwife; PCP Family Medicine; Referring Provider Advanced Practice Midwife; Visit Provider Advanced Practice Midwife
DX: O69.81X0 Labor and delivery complicated by cord around neck, without compression, not applicable or unspecified (principal); Z37.0 Single live birth; O99.214 Obesity complicating childbirth; E66.9 Obesity, unspecified; Z3A.38 38 weeks gestation of pregnancy; Z87.59 Personal history of other complications of pregnancy, childbirth and the puerperium
CPT/HCPCS: 59025; 59050; 85025; 85027; 86850; 86900; 86901; 87426; 99218; J7120; A4216; G0378

== ENCOUNTER → 2020-09-08 | Outpatient (CLI) | payer BC, SELFPAY ==
[2020-05-16 14:30] VITALS: BMI 34.0
== END | disposition home or self-care (01) ==
LOC: LABSPEC 15:30
PROVIDERS: PCP Family Medicine; Referring Provider Otolaryngology; Visit Provider Otolaryngology
DX: Z20.828 Contact with and (suspected) exposure to other viral communicable diseases (principal)
CPT/HCPCS: 87635; U0005; U0003

== ENCOUNTER → 2020-09-13 | Outpatient (CLI) | payer BC, SELFPAY ==
[2020-05-16 14:30] VITALS: BMI 34.0
--- NOTE | 2020-09-13 11:02 | TONS_PTH ---
PATIENT: PATRICIA HEART LOC: [facility] U#:[id number] AGE/SX: 24/ ROOM: RE09/13/[address]: Dr. Satinder Villegas MD : [id number] BED: DIS: 09/13/2020 SPEC #: [id number] RECD: 09/13/20 14:58 STATUS: DEBORA PORRAS #: [id number] NIRMAL: 09/13/20 11:[address]: Satinder Villegas DEPT: SURGICAL PATHOLOGY RECD BY: Carlyn Wellington ENTERED: 09/14/20 09:26 SP TYPE: TONSILS OTHR DR: Dr. Zechariah Chaudhary MD [facility] Tissues: Tonsil, NOS Procedures: Surgery Specimen Level III HEADER OPERATION: Tonsillectomy PRE-OP DIAGNOSIS: Chronic tonsillitis TISSUE SUBMITTED: Tonsils, right pinned MICROSCOPIC DIAGNOSIS Right tonsil, tonsillectomy: Benign lymphoid hyperplasia. Organisms consistent with actinomyces. Left tonsil, tonsillectomy: Benign lymphoid hyperplasia. Organisms consistent with actinomyces. AM:tao 09/15/2020 COMMENT Case has been reviewed in consultation with Dr. Templeton who concurs with the above diagnosis. QUINTON:PORTILLO MICROSCOPIC DESCRIPTION Slides are reviewed. GROSS DESCRIPTION Received is one container labeled with the patient's name and designated tonsils - pin on right are two tonsils that in aggregate weigh 7.2 gm. The right tonsil has a pin on it and measures 3 x 2 x 1.5 cm. The left tonsil measures 3 x 2 x 1 cm. Sections of the right tonsil reveal a mendoza-white solid nodule measuring 1.5 x 1 x 1 cm. It is inked with black ink. The external surfaces are pink-mendoza, smooth, glistening and somewhat lobulated. Focally they are hemorrhagic, granular and bear cautery artifact. Serial cross sections through the tonsils reveal normal tonsillar architecture. Sections are submitted in two cassettes as follows: 1-3 - right tonsil, 4- left tonsil. / PORTILLO:tao 09/14/20 TC:5 CPT: 69291 x2
== END | disposition home or self-care (01) ==
LOC: LABSPEC 15:20
PROVIDERS: PCP Family Medicine; Visit Provider Otolaryngology
DX: J35.01 Chronic tonsillitis (principal)
CPT/HCPCS: 88304

== ENCOUNTER 2021-06-28 22:45 | Inpatient (IN) | payer BC, SELFPAY ==
[2021-06-28 20:10] VITALS: BP 134/85; PULSE 102; PULSE 96; O2SAT 99
[2021-06-28 20:11] VITALS: TEMP 36.4
[2021-06-28 23:11] VITALS: BMI 33.9
[2021-06-28 23:40] LABS: Absolute Lymphocyte Count 1.78 X10^3/uL (0.83-4.51); Absolute Neutrophil Count 7.6 X10^3/uL (2.0-7.7); Basophil# 0.03 X10^3/uL; Basophil% 0.3 % (0-1); Eosinophils% 1.9 % (0-5); Hematocrit 31.2 % (37-47); Hemoglobin 10.3 g/dL (12.0-15.0); Lymphocyte # 1.78 X10^3/ul (0.83-4.51); Lymphocyte % 17.2 % (19-41); Mean Corpuscular Hgb 28.8 pg (27.0-32.0); Mean Corpuscular Volume 87.2 fL (81-99); Mean Platelet Vol. 11.2 fl (6.2-12.0); Monocyte# 0.65 X10^3/uL; Monocyte% 6.3 % (0-10); NRBC Flagged by Analyzer 0 % (0-5); Neutrophil # 7.61 X10^3/uL (2.7-7.7); Neutrophil % 73.5 % (47-70); Platelet Count 179 K/mm3 (150-450); RBC Distribution Width CV 12.4 % (11.6-14.6); RBC Distribution Width SD 39.7 fl (35.1-43.9); Red Blood Count 3.58 M/mm3 (4.2-5.4); White Blood Count 10.4 K/mm3 (4.4-11.0)
[2021-06-28 23:47] VITALS: BP 125/86; PULSE 101; O2SAT 99
[2021-06-28] MEDS: Lactated Ringers 500 ML 999 ML IV (23:55)
[2021-06-29] VITALS (83 sets, daily range): BP systolic 89–172; BP diastolic 53–90; PULSE 67–148; RESP 16–18; TEMP 35.7–36.6; O2SAT 92–100
[2021-06-29] MEDS: Ondansetron 4 MG/2 ML Vial IV ×2 (00:06→04:51)
[2021-06-29] MEDS: Lactated Ringers 1,000 ML 200 ML IV ×2 (00:26→04:47)
[2021-06-29] MEDS: fentaNYL-bupivacaine (epidural) 100 ML BAG EPIDURAL (01:30)
[2021-06-29] MEDS: Mag Hydrox/Al Hydrox/Simeth 30 ML UDC PO (01:46)
[2021-06-29] MEDS: Lactated Ringers 500 ML 999 ML IV ×2 (03:35→04:30)
--- NOTE | 2021-06-29 04:19 | PCM.HP.OB ---
HPI - General General Date of Admission: 06/28/21 HPI Narrative PATRICIA HEART, is a 25 F who presents at 36w2d with contractions. No leakage of fluid or vaginal bleeding. Contractions on and off for several hours and increased in pain and intensity. FARTUN by first trimester US. complicated by short interval and history of anxiety and depression. Maternal Data Information FARTUN Calculator Estimated Delivery Date Method Current WG Current Estimate 07/25/21 Manual 36w 2d PFSH PFSH Home Medications vit,[id number] [Prenatabs FA] 1 tab PO DAILY 01/03/16 [History Last Taken 06/28/21 08:00] ferrous sulfate [iron] 325 mg PO DAILY 06/29/21 [History Last Taken 06/28/21 08:00] Allergy/AdvReac Type Severity Reaction Status Date / Time buspirone [From BuSpar] AdvReac Other Verified 06/29/21 00:28 escitalopram [From Lexapro] AdvReac Other Verified 06/29/21 00:28 Surgical History (Updated 06/28/21 @ 23:14 by Kandace Strange) History of surgery Social History Smoking Status: Never smoker History Elective abortions Hx Para 2 Spontaneous abortions Hx # Term Pregnancies Ectopic pregnancies Hx # Pregnancies Multiple births # of living children NST FHR Rate Baby A Baseline: 120 Variability:: Moderate Accelerations:: 15 x 15 Decelerations:: Variable FHR Category:: Category II Uterine Activity:: every 2-3 minutes Difficulty palpating and tracing with EFM ROS Constitutional Constitutional: Reports systems reviewed and no addt'l complaints, except as documented; Denies headache(s) Eyes Eyes: Denies acute decrease in peripheral vision, blurry vision or change in vision ENT HEENT: Reports systems reviewed and no addt'l complaints, except as documented Cardiovascular Cardiovascular: Denies chest pain or dizziness Respiratory/Chest Respiratory/Chest: Denies cough, dyspnea, dyspnea on exertion, shortness of breath at rest or shortness of breath with exertion Gastrointestinal Gastrointestinal: Denies abdominal pain, diarrhea, nausea or vomiting Genitourinary Genitourinary: Denies abdominal discomfort or movement Musculoskeletal Musculoskeletal: Denies limited range of motion Integumentary Integumentary: Reports systems reviewed and no addt'l complaints, except as documented Neurologic Neurologic: Reports systems reviewed and no addt'l complaints, except as documented Psychiatric Psychiatric: Reports systems reviewed and no addt'l complaints, except as documented Endocrine Endocrinology: Reports systems reviewed and no addt'l complaints, except as documented Hematologic/Lymphatic Hematologic/Lymphatic: Reports systems reviewed and no addt'l complaints, except as documented Allergic/Immunologic Allergic/Immunologic: Reports systems reviewed and no addt'l complaints, except as documented Vital Signs Vital Signs Vital Signs: 06/28/21 20:10 06/28/21 20:11 06/28/21 23:47 Temperature 97.6 F L Temperature Source Temporal Pulse Rate 102 H 101 H Blood Pressure 134/85 H 125/86 H BP Systolic 134 125 BP Diastolic 85 86 Pulse Ox 99 99 06/29/21 00:44 06/29/21 00:46 06/29/21 00:49 Temperature Temperature Source Pulse Rate 107 H 99 106 H Blood Pressure 168/89 H BP Systolic 168 BP Diastolic 89 Pulse Ox 100 100 06/29/21 00:53 06/29/21 00:54 06/29/21 00:57 Temperature Temperature Source Pulse Rate 97 106 H 111 H Blood Pressure 147/79 H 172/86 H BP Systolic 147 172 BP Diastolic 79 86 Pulse Ox 100 06/29/21 00:59 06/29/21 01:02 06/29/21 01:04 Temperature Temperature Source Pulse Rate 121 H 114 H 111 H Blood Pressure 154/77 H BP Systolic 154 BP Diastolic 77 Pulse Ox 100 100 06/29/21 01:07 06/29/21 01:09 06/29/21 01:12 Temperature Temperature Source Pulse Rate 107 H 118 H 126 H Blood Pressure 151/83 H 165/77 H BP Systolic 151 165 BP Diastolic 83 77 Pulse Ox 100 06/29/21 01:14 06/29/21 01:17 06/29/21 01:19 Temperature Temperature Source Pulse Rate 132 H 134 H 133 H Blood Pressure 138/77 H BP Systolic 138 BP Diastolic 77 Pulse Ox 100 100 06/29/21 01:24 06/29/21 01:26 06/29/21 01:28 Temperature Temperature Source Pulse Rate 142 H 115 H 125 H Blood Pressure 132/76 H 145/72 H BP Systolic 132 145 BP Diastolic 76 72 Pulse Ox 98 06/29/21 01:29 06/29/21 01:32 06/29/21 01:34 Temperature Temperature Source Pulse Rate 133 H 123 H 136 H Blood Pressure 132/63 H BP Systolic 132 BP Diastolic 63 Pulse Ox 100 100 06/29/21 01:37 06/29/21 01:39 06/29/21 01:42 Temperature Temperature Source Pulse Rate 131 H 109 H 122 H Blood Pressure 140/71 H 134/73 H BP Systolic 140 134 BP Diastolic 71 73 Pulse Ox 100 06/29/21 01:44 06/29/21 01:49 06/29/21 02:19 Temperature Temperature Source Pulse Rate 123 H 127 H 99 Blood Pressure 117/70 144/70 H BP Systolic 117 144 BP Diastolic 70 70 Pulse Ox 100 06/29/21 02:47 06/29/21 03:18 06/29/21 03:34 Temperature 96.3 F L Temperature Source Pulse Rate 88 98 88 Blood Pressure 105/53 L 91/55 L BP Systolic 105 91 BP Diastolic 53 55 Pulse Ox 100 100 06/29/21 03:35 06/29/21 04:11 Temperature 96.8 F L 96.9 F L Temperature Source Temporal Temporal Pulse Rate 90 Blood Pressure 116/61 BP Systolic 116 BP Diastolic 61 Pulse Ox Weight Weight: 197 lb 9.6 oz Body Mass Index (BMI) 33.9 Physical Exam Const alert and oriented x3 General Appearance: cooperative Orientation / Consciousness: awake, oriented to person, oriented to place and oriented to time Exam Limitations: no limitations HEENT normocephalic Head and Scalp: normal to inspection, normocephalic and atraumatic Face and Sinus: normal facial exam Eyes General Eye: normal appearance of both eyes Neck full ROM Chest Chest: symmetrical chest wall rise Resp normal respiratory effort and normal air movement Auscultation: clear to auscultation bilaterally Cardio regular rate, regular rhythm, S1 normal heart sound, S2 normal heart sound, no murmurs, no rub, no gallops and no clicks GI normal to inspection, nondistended, normoactive bowel sounds and non-tender appearance of the vagina normal Bladder / Kidney Exam: no CVA tenderness Manual OB Exam: dilated 6m Back/Spine normal ROM Extremity normal to inspection and full ROM Skin no rashes or lesions noted Neuro oriented x3, CN's II-XII intact bilaterally and moves all extremities Sensorium / Orientation: awake, alert and oriented to person Motor Exam: clonus absent Deep Tendon Reflexes: Rt Patellar (L4): 2+ and Lt Patellar (L4): 2+ Labs Labs Labs: Blood Type A POSITIVE Antibody Screen NEGATIVE Hct 31.2 % (37-47) L Hgb 10.3 g/dL (12.0-15.0) L Rubella IgG Antibody 57.5 IU/mL Hep Bs Antigen Negative (Negative) Glucose 1 Hr 50 gm 96 mg/dL (70-140) Group B Strep DNA Negative (Negative) Rhogam given: No Miscellaneous Test RPR negative HIV non reactive Hep C negative HBsAG negative GBS negative Assessment & Plan (1) 36 weeks gestation of : (2) Active labor: (3) History of anxiety: (4) History of depression: (5) History of depression: (6) Obesity affecting : PLAN: 1) Admit to Labor and delivery in active labor 2) Routine labs 3) GBS negative 4) Epidural for pain management upon request 5) Continuous EFM 6) updated on patient status
[2021-06-29] MEDS: 0.9% Saline Lock 10 ML Syringe IV ×2 (04:51→10:53)
[2021-06-29] MEDS: Oxytocin 30 units/NS 500 ml 30 UNITS/500 ML IV.SOLN 334 UNITS IV (08:11)
--- NOTE | 2021-06-29 08:21 | EX.PCM.OBRPT ---
Assessment & Plan (1) Vaginal delivery: Maternal Data Information FARTUN Calculator Estimated Delivery Date Method Current WG Current Estimate 07/25/21 Manual 36w 2d Vaginal Delivery Maternal Presentation Maternal Presentation: Active Labor Operative Information Date of Procedure: 06/29/21 Pre-Operative Diagnosis: 36 weeks, active labor Post-Operative Diagnosis: same , live male Surgery / Procedure Performed: Spontaneous Vaginal Delivery Type of Anesthesia: Epidural Drain: Francisco to straight drain Estimated Blood Loss: 100 Time of Delivery: 08:08 Findings Description of Procedure: Patient examined at bedside found to be fully dilated +2 station. At this time director of radiology and resuscitation team was called to the room. Good maternal pushing efforts delivered the infant's head loose nuchal delivered through. Anterior shoulders delivered without complication followed by the rest 's body. was placed on the mother's chest for immediate skin to skin. Infant was vigorous. Delayed cord clamping was performed. Placenta then delivered intact without complication. No vaginal lacerations or perineal lacerations were appreciated. Presentation: Vertex Amniotic Membrane Rupture Type: Artificial Amniotic Fluid Description: Clear Placental Delivery Description: Expressed Placenta Disposition: [facility] Cord Vessel Description: 3 Vessels Cord Entanglement: Around neck x 1, loose Nuchal Cord Compression: With compression Infant A Gender: Male (1 minute): 8 (5 minute): 9 Delayed Cord Clamping: Yes Post Vaginal Delivery Medications Given After Delivery: IV Pitocin Episiotomy Description: None Laceration: None Complication Complications: None
--- NOTE | 2021-06-29 14:17 | PCM.DC ---
Discharge Instructions Diet Discharge Diet: No restrictions Activity May resume sexual activity in: 6 weeks Dressing / Incision Call your doctor if your incision/area has: Continuous Slow Oozing, Sudden Increased Bleeding, Foul Smelling Discharge and Swelling at the incision site Call your doctor if you observe: Fever of 101 or Higher and Inability to urinate Follow Up Care Please Follow Up With: Celi Condon MD When: Follow up with our office in 1-2 and 6 weeks or as needed. [phone] Test Results: Test results from this visit will be discussed in further detail at your follow-up appointment, if applicable. Discharge Plan Admission Admit Date/Time: 06/28/21 22:45 Primary Reason for Your Visit: Labor and delivery Attending Provider: Felipa Arteaga Primary Care Provider: Zechariah Chaudhary Discharge Orders/Prescriptions Prescriptions: New ibuprofen [ibuprofen] 600 MG tablet 600 mg PO Q6H PRN (Reason: Pain) 10 Days Qty: 30 RF: 1 Continued Prenatabs FA 1 TABLET tablet 1 tab PO DAILY RF: 0 ferrous sulfate [iron] 325 mg (65 mg iron) Tablet 325 mg PO DAILY RF: 0 Referrals / Follow Up: Zechariah Chaudhary MD [Primary Care Provider] - Disposition Disposition (needs filled in before D/C Order can be placed): Home, Self Care
== END 2021-06-29 17:15 | disposition home or self-care (01) | DRG 805 ==
LOC: WPOUT 22:49 → WP 22:49
PROVIDERS: Advanced Practice Midwife; Admitting Provider Obstetrics & Gynecology; PCP Family Medicine; Visit Provider Obstetrics & Gynecology
DX: O76 Abnormality in fetal heart rate and rhythm complicating labor and delivery (principal); Z37.0 Single live birth; O60.14X0 Preterm labor third trimester with preterm delivery third trimester, not applicable or unspecified; O69.2XX0 Labor and delivery complicated by other cord entanglement, with compression, not applicable or unspecified; O99.214 Obesity complicating childbirth; Z3A.36 36 weeks gestation of pregnancy; Z28.310 Unvaccinated for COVID-19; Z28.9 Immunization not carried out for unspecified reason
CPT/HCPCS: 59025; 59050; 85025; 86850; 86900; 86901; 87426; J7120; A4216; J2405

== ENCOUNTER 2021-10-08 23:01 | Emergency (ER) | payer BC, SELFPAY ==
[2021-10-08 23:02] VITALS: BP 168/78; PULSE 83; RESP 16; TEMP 36.5; O2SAT 99; BMI 30.9
[2021-10-08 23:23] VITALS: RESP 17
--- NOTE | 2021-10-08 23:38 | EKG12_ITS ---
Test Reason : Seizure Blood Pressure : / mmHG Vent. Rate : 091 BPM Atrial Rate : 091 BPM P-R Int : 158 ms QRS Dur : 102 ms QT Int : 372 ms P-R-T Axes : 049 024 016 degrees QTc Int : 457 ms Normal sinus rhythm with sinus arrhythmia RSR' or QR pattern in V1 suggests right ventricular conduction delay Nonspecific T wave abnormality Abnormal ECG Confirmed by KARL YIN, ELIGIO ([id number]), loan expeditor GERONIMO FRENCH ([id number]) on 10/10/2021 11:17:38 AM Referred By: Confirmed By:ELIGIO BARAJAS MD
--- NOTE | 2021-10-08 23:40 | EX.ED.DYSGE1 ---
HPI History of Present Illness Chief Complaint: Seizure Informant: patient and parent Narrative Narrative: Patient presents with concern that she might have a seizure. Patient evidently had 2 seizures when she was a young child about 4 years old. She was never on medication. Her mom states that she would cry so hard that she would then get a seizure because of that. Patient reports having a seizure on Saturday. She went to [facility]. She had another seizure while she was there. She states the physician that saw her said these were actually panic attacks. The patient states that she would feel like she was having a seizure. She would then evidently started shaking all over. She did seem to be confused afterwards. I have no report of injuring her tongue or incontinence. Nobody here actually saw this. Patient states that they did do a sternal rub on her while she was in the hospital the other day while she was having a seizure. She described the motion that they did. Patient has had some decreased sleep. She has a child that is about 3 to 4 months old. They feed about every 3-4 hours. No fevers or chills. No recent trauma. Patient also did have a CT of her head done at [place] that she states was normal just days ago. [facility] Medical History History of anxiety History of depression Vaginal delivery Home Medications vits,calcium no.78-iron fumarate-folic acid 29 mg-1 mg tablet (Prenatabs FA) 1 tab PO DAILY 01/03/16 [History Last Taken 06/28/21 08:00] ferrous sulfate 325 mg (65 mg iron) tablet (iron) 325 mg PO DAILY Check with primary doctor 06/29/21 [History Last Taken 06/28/21 08:00] ibuprofen 600 mg tablet 600 mg PO Q6H PRN Pain 10 days #30 TABLETS 06/29/21 [Rx Last Taken Unknown] Allergy/AdvReac Type Severity Reaction Status Date / Time buspirone [From BuSpar] AdvReac Other Verified 10/08/21 23:04 escitalopram [From Lexapro] AdvReac Other Verified 10/08/21 23:04 Surgical History History of surgery Social History Smoking Status: Never smoker ROS ROS ED Constitutional Constitutional ED: Denies chills, fever(s) or sweats Eyes Eyes: Denies blurry vision, change in vision or diplopia ENT ENT ED: Denies rhinorrhea or sore throat Cardiovascular Cardiovascular: Denies chest pain or palpitations Respiratory/Chest Respiratory/Chest: Denies cough or dyspnea Gastrointestinal Gastrointestinal: Denies diarrhea, nausea or vomiting Genitourinary Genitourinary ED: Denies dysuria or hematuria Musculoskeletal Musculoskeletal: Denies arthralgias or myalgias Integumentary Denies rash Neurologic Neurologic: Reports other Details: See history of present illness peer ; Denies headache(s), paresthesias or weakness Psychiatric Psychiatric: Reports anxiety and depression Endocrine Endocrinology: Denies polydipsia or polyuria Hematologic/Lymphatic Hematologic/Lymphatic: Denies easy bleeding or easy bruising Allergic/Immunologic Allergic/Immunologic ED: Denies urticaria EXAM Physical Exam Const Vital Signs: 10/08/21 23:02 10/08/21 23:23 10/09/21 01:02 Temperature 97.7 F L Temperature Source Temporal Pulse Rate 83 95 Respiratory Rate 16 17 18 Blood Pressure 168/78 H Blood Pressure Mean 108 Pulse Ox 99 99 Oxygen Delivery Method Room Air 10/09/21 01:14 10/09/21 01:14 Temperature Temperature Source Pulse Rate 91 Respiratory Rate 17 Blood Pressure 140/88 H Blood Pressure Mean 105 Pulse Ox 94 Oxygen Delivery Method Room Air Positive well nourished and well developed General Appearance ED: well developed and NAD HEENT Reports moist mucous membranes HEENT Narrative: No injury noted. Eyes EOMs intact bilaterally Neck no lymphadenopathy and no JVD Neck Narrative: No bruit. Resp normal respiratory effort and clear to auscultation bilaterally Auscultation: Negative for rales, rhonchi or wheezes Cardio regular rate, regular rhythm and no murmurs GI normal to inspection, nondistended, normoactive bowel sounds and non-tender Extremity normal to inspection General Extremety ED: Negative for edema or tenderness General Extremity: Negative for edema Neuro oriented x3 and no sensory deficits noted Sensorium / Orientation: alert; Negative for orientation impaired, lethargic or stuporous Motor Exam: strength 5/5 throughout Psych mental status grossly normal Attitude: No agitated Mood & Affect: Negative for depressed, anxious or tearful Skin no rashes or lesions noted and no wounds MDM MDM MDM Narrative Medical decision making narrative: Patient's blood work here shows mild anemia which would not be uncommon just over 3 months after delivery. White count and platelets are normal. Electrolytes are normal. I did add liver function test and uric acid. Although this patient is over 3 months from delivery, her blood pressure was a little bit up. I do not think this is eclampsia. I think the normal liver function test uric acid and normal reflexes go against that. She is also not having headaches. I was able to get copies of CT that was just recently done which were normal. Also, on her prior ER visit it documents that she was having one of the seizures episodes but remained alert oriented and talking during it. This brings in the question if these are true seizures or could be panic attacks. It certainly possible she has both pseudoseizures and real seizures. That would not be uncommon. However, I think the totality of information indicates that we do not need to start meds at this time. I will give her follow-up for neurologist so we can get to the bottom of this. They may do further studies such as outpatient EEG. Lab Data Attestation: I reviewed the patient's lab results. Labs: Laboratory Results - last 24 hr 10/08/21 10/08/21 10/08/21 23:45 23:45 23:45 WBC 6.5 RBC 4.07 L Hgb 11.6 L Hct 34.9 L MCV 85.7 MCH 28.5 MCHC 33.2 RDW Std Deviation 39.8 RDW Coeff of Ricarda 12.9 Plt Count 252 MPV 10.2 Immature Gran % (Auto) 0.300 Neut % (Auto) 53.3 Lymph % (Auto) 36.2 Stark % (Auto) 7.1 Eos % (Auto) 2.3 Baso % (Auto) 0.8 Absolute Neuts (auto) 3.5 Absolute Lymphs (auto) 2.35 Nucleated RBC % 0 Sodium 142 Potassium 3.5 Chloride 108 H Carbon Dioxide 26.0 Anion Gap 8 BUN 14 Creatinine 0.83 Estim Creat Clear Calc 90.25 Est GFR (MDRD) Af Amer 108 Est GFR (MDRD) Non-Af 89 BUN/Creatinine Ratio 16.9 Glucose 126 H Uric Acid Calcium 9.2 Total Bilirubin 0.40 Direct Bilirubin 0.14 AST 16 ALT 35 Alkaline Phosphatase 94 Total Protein 7.1 Albumin 3.8 Globulin 3.3 10/08/21 23:45 WBC RBC Hgb Hct MCV MCH MCHC RDW Std Deviation RDW Coeff of Ricarda Plt Count MPV Immature Gran % (Auto) Neut % (Auto) Lymph % (Auto) Stark % (Auto) Eos % (Auto) Baso % (Auto) Absolute Neuts (auto) Absolute Lymphs (auto) Nucleated RBC % Sodium Potassium Chloride Carbon Dioxide Anion Gap BUN Creatinine Estim Creat Clear Calc Est GFR (MDRD) Af Amer Est GFR (MDRD) Non-Af BUN/Creatinine Ratio Glucose Uric Acid 4.7 Calcium Total Bilirubin Direct Bilirubin AST ALT Alkaline Phosphatase Total Protein Albumin Globulin Discharge Plan Triage Chief Complaint: Seizure ED Provider: Levi Mckeon Dx/Rx/DC Orders Clinical Impression: Seizure disorder Instructions: ED Seizure New Onset Unknown ... Prescriptions: No Action Prenatabs FA 1 TABLET tablet 1 tab PO DAILY ferrous sulfate [iron] 325 mg (65 mg iron) Tablet 325 mg PO DAILY ibuprofen [ibuprofen] 600 MG tablet 600 mg PO Q6H PRN (Reason: Pain) 10 Days Qty: 30 1RF Primary Care Provider: Zechariah Chaudhary Referrals: Zechariah Chaudhary MD [Primary Care Provider] - Salvador Hagan MD [Non-Staff] - As soon as possible Disposition Disposition: Home, Self Care
[2021-10-08 23:53] LABS: Absolute Lymphocyte Count 2.35 X10^3/uL (0.83-4.51); Absolute Neutrophil Count 3.5 X10^3/uL (2.0-7.7); Basophil# 0.05 X10^3/uL; Basophil% 0.8 % (0-1); Eosinophil# 0.15 X10^3/uL; Eosinophils% 2.3 % (0-5); Hematocrit 34.9 % (37-47); Hemoglobin 11.6 g/dL (12.0-15.0); Lymphocyte # 2.35 X10^3/ul (0.83-4.51); Lymphocyte % 36.2 % (19-41); Mean Corp Hgb Conc 33.2 g/dL (32-36); Mean Corpuscular Hgb 28.5 pg (27.0-32.0); Mean Corpuscular Volume 85.7 fL (81-99); Mean Platelet Vol. 10.2 fl (6.2-12.0); Monocyte# 0.46 X10^3/uL; Monocyte% 7.1 % (0-10); NRBC Flagged by Analyzer 0 % (0-5); Neutrophil # 3.46 X10^3/uL (2.7-7.7); Neutrophil % 53.3 % (47-70); Platelet Count 252 K/mm3 (150-450); RBC Distribution Width CV 12.9 % (11.6-14.6); RBC Distribution Width SD 39.8 fl (35.1-43.9); Red Blood Count 4.07 M/mm3 (4.2-5.4); White Blood Count 6.5 K/mm3 (4.4-11.0)
[2021-10-09 00:06] LABS: Anion Gap 8 (5-15); BUN 14 mg/dL (7-18); BUN/Creat Ratio 16.9 RATIO (10-20); Calcium,Total 9.2 mg/dL (8.5-10.1); Chloride 108 mmol/L (98-107); Creatinine, Serum 0.83 mg/dL (0.55-1.02); EST Glomerular Filtration Rate 89 mL/min (>60); Est Glom Filt Rate - Afr Amer 108 mL/min (>60); Estimated Creatinine Clearance 90.25 ml/min; Glucose 126 mg/dL (74-106); Potassium 3.5 mmol/L (3.5-5.1); Sodium Level 142 mmol/L (136-145)
[2021-10-09 01:02] VITALS: PULSE 95; RESP 18; O2SAT 99
[2021-10-09 01:02] LABS: AST(SGOT) 16 U/L (15-37); Alanine Aminotransfer ALT/SGPT 35 U/L (13-56); Albumin, Serum 3.8 g/dL (3.2-5.0); Alkaline Phosphatase 94 U/L (45-117); Bilirubin, Direct 0.14 mg/dL (0.00-0.30); Globulin 3.3 g/dL (2.2-4.2); Protein, Total 7.1 g/dL (6.4-8.2)
[2021-10-09 01:07] LABS: Uric Acid 4.7 mg/dL (2.6-6.0)
[2021-10-09 01:14] VITALS: BP 140/88; PULSE 91; RESP 17; O2SAT 94
[2021-10-09 01:50] VITALS: BP 143/84; PULSE 74; RESP 17; O2SAT 98
== END 2021-10-09 02:16 | disposition home or self-care (01) ==
PROVIDERS: Emergency Provider Emergency Medicine; PCP Family Medicine; Visit Provider Emergency Medicine
DX: G40.909 Epilepsy, unspecified, not intractable, without status epilepticus (principal); D64.9 Anemia, unspecified
CPT/HCPCS: 80048; 80076; 84550; 85025; 93005; 96360; 99283; J7030; A4216

== ENCOUNTER 2021-12-06 07:33 | Emergency (ER) | payer BC, SELFPAY ==
[2021-12-06 07:34] VITALS: BP 130/98; PULSE 92; RESP 22; TEMP 36.6; O2SAT 100; BMI 33.9
--- NOTE | 2021-12-06 08:13 | EDS_ITS ---
HPI History of Present Illness Chief Complaint: Flank Pain Informant: patient Onset/Context/Timing Onset: Today Context: Sudden Onset Timing: Continuous Quality: Sharp Location: Right upper quadrant and right flank Worsened by: Nothing Relieved by: Nothing Narrative Narrative: Patient presents with right-sided abdominal pain that began suddenly this morning. Patient states it began approximately 4 hours prior to arrival. Patient states it began suddenly. Patient states it has been constant. Patient states the pain is sharp. Patient states the pain is over the right upper quadrant and right flank area. Patient states nothing makes it better and nothing makes it worse. Patient states the pain radiates into her back. Patient denies any fevers or chills. Patient admits to some nausea and vomiting. Patient denies any hematemesis or coffee-ground emesis. Patient denies any diarrhea, melena, or hematochezia. Patient denies any urinary complaints. [facility] Medical History (Updated 12/06/21 @ 11:[address] Mirza Whitley DO) History of anxiety History of depression Seizure disorder Vaginal delivery Home Medications vits,calcium no.78-iron fumarate-folic acid 29 mg-1 mg tablet (Prenatabs FA) 1 tab PO DAILY 01/03/16 [History Last Taken 06/28/21 08:00] ferrous sulfate 325 mg (65 mg iron) tablet (iron) 325 mg PO DAILY Check with primary doctor 06/29/21 [History Last Taken 06/28/21 08:00] ibuprofen 600 mg tablet 600 mg PO Q6H PRN Pain 10 days #30 TABLETS 06/29/21 [Rx Last Taken Unknown] hydrocodone-acetaminophen 5-325mg 5mg-325mg 1 tab PO Q6H PRN PRN Pain 3 days #10 TABLETS 12/06/21 [Rx Last Taken Unknown] Allergy/AdvReac Type Severity Reaction Status Date / Time buspirone [From BuSpar] AdvReac Other Verified 12/06/21 07:34 escitalopram [From Lexapro] AdvReac Other Verified 12/06/21 07:34 Surgical History History of surgery Surgical History no surgical history no surgical history Social History Smoking Status: Never smoker ROS ROS ED Constitutional Constitutional ED: Denies chills or fever(s) Eyes Eyes: Denies blurry vision or change in vision ENT ENT ED: Denies rhinorrhea or sore throat Cardiovascular Cardiovascular: Denies chest pain or palpitations Respiratory/Chest Respiratory/Chest: Denies cough or dyspnea Gastrointestinal Gastrointestinal: Reports abdominal pain, nausea and vomiting Genitourinary Genitourinary ED: Denies dysuria or hematuria Musculoskeletal Musculoskeletal: Reports back pain; Denies neck pain Integumentary Denies abscess or rash Neurologic Neurologic: Denies headache(s) or weakness Allergic/Immunologic Allergic/Immunologic ED: Denies mouth swelling or urticaria EXAM Physical Exam Const Vital Signs: 12/06/21 07:34 12/06/21 09:46 12/06/21 11:00 Temperature 98 F 97.5 F L Temperature Source Temporal Temporal Pulse Rate 92 64 68 Respiratory Rate 22 H 16 Blood Pressure 130/98 H 145/88 H 141/79 H Blood Pressure Mean 108 107 99 Pulse Ox 100 98 99 Oxygen Delivery Method Room Air Room Air Room Air Positive well nourished and well developed General Appearance ED: well developed HEENT Reports moist mucous membranes Neck supple and no JVD Resp normal respiratory effort and clear to auscultation bilaterally Cardio regular rate, regular rhythm and no murmurs GI normal to inspection, nondistended, normoactive bowel sounds Palpation: soft and tender RUQ; Negative for guarding or rebound tenderness present Back/Spine General Back: CVA tenderness right Extremity normal to inspection General Extremety ED: Negative for edema or tenderness General Extremity: Negative for edema Neuro oriented x3, CN's II-XII intact bilaterally and no sensory deficits noted Sensorium / Orientation: alert Motor Exam: strength 5/5 throughout Psych mental status grossly normal Skin no rashes or lesions noted MDM MDM MDM Narrative Medical decision making narrative: Patient was given IV fluids, morphine, and Zofran. CBC was within normal limits. Comprehensive metabolic profile was within normal limits. Lipase was normal. Serum hCG was negative. Urinalysis does not show any evidence of urinary tract infection or hematuria. CT scan of the abdomen pelvis was obtained. The gallbladder is distended. There are multiple layering gallstones in the dependent portion of the gallbladder lumen. This was interpreted by the radiologist and reviewed by myself. Right upper quadrant ultrasound was obtained. There is a positive sonographic Monterroso sign. There is no wall thickening. The gallbladder is distended. There is no ductal dilatation. There is a solitary nonmobile gallstone. This was interpreted by the radiologist and reviewed by myself. Case was discussed with Dr. Cummins. He will follow-up with the patient as an outpatient. Patient was given a prescription for [place]. Patient was instructed to avoid fried foods, fatty foods, greasy foods. Patient was instructed to return if worse in any way. Patient understood and was agreeable with the plan. All questions were answered. Lab Data Attestation: I reviewed the patient's lab results. Labs: Laboratory Results - last 24 hr 12/06/21 12/06/21 12/06/21 07:55 07:55 07:55 WBC 5.9 RBC 4.49 Hgb 13.3 Hct 38.9 MCV 86.6 MCH 29.6 MCHC 34.2 RDW Std Deviation 36.0 RDW Coeff of Ricarad 11.5 L Plt Count 235 MPV 10.6 Immature Gran % (Auto) 0.200 Neut % (Auto) 54.3 Lymph % (Auto) 35.4 Sandoval % (Auto) 6.8 Eos % (Auto) 2.4 Baso % (Auto) 0.9 Absolute Neuts (auto) 3.2 Absolute Lymphs (auto) 2.07 Nucleated RBC % 0 Sodium 140 Potassium 3.5 Chloride 107 Carbon Dioxide 26.0 Anion Gap 7 BUN 18 Creatinine 0.68 Estim Creat Clear Calc 109.21 Est GFR (MDRD) Af Amer 135 Est GFR (MDRD) Non-Af 112 BUN/Creatinine Ratio 26.4 H Glucose 99 Calcium 8.7 Total Bilirubin 0.30 AST 15 ALT 24 Alkaline Phosphatase 95 Total Protein 7.6 Albumin 3.9 Globulin 3.7 Albumin/Globulin Ratio 1.1 Lipase 235 Serum , Qual NEGATIVE Urine Color Urine Clarity Urine pH Ur Specific [place] Urine Protein Urine Glucose (UA) Urine Ketones Urine Occult Blood Urine Nitrite Urine Bilirubin Urine Urobilinogen Ur Leukocyte Esterase Urine RBC Urine WBC Ur Squamous Epith Cells Urine Bacteria Urine Mucus 12/06/21 09:40 WBC RBC Hgb Hct MCV MCH MCHC RDW Std Deviation RDW Coeff of Ricarda Plt Count MPV Immature Gran % (Auto) Neut % (Auto) Lymph % (Auto) Sandoval % (Auto) Eos % (Auto) Baso % (Auto) Absolute Neuts (auto) Absolute Lymphs (auto) Nucleated RBC % Sodium Potassium Chloride Carbon Dioxide Anion Gap BUN Creatinine Estim Creat Clear Calc Est GFR (MDRD) Af Amer Est GFR (MDRD) Non-Af BUN/Creatinine Ratio Glucose Calcium Total Bilirubin AST ALT Alkaline Phosphatase Total Protein Albumin Globulin Albumin/Globulin Ratio Lipase Serum , Qual Urine Color Yellow Urine Clarity Clear Urine pH 6.0 Ur Specific [place] 1.015 Urine Protein Negative Urine Glucose (UA) Normal Urine Ketones Negative Urine Occult Blood Negative Urine Nitrite Negative Urine Bilirubin Negative Urine Urobilinogen Normal Ur Leukocyte Esterase 25 H Urine RBC 0 SEEN Urine WBC 0-5 SEEN Ur Squamous Epith Cells 0-5 SEEN Urine Bacteria 1+ Urine Mucus 0 SEEN Radiography Diagnostic Testing: Clinical Impression(s) from Imaging Studies Abdomen/Pelvis CT 12/06/21 08:18 IMPRESSION: There are multiple small layering gallstones along the dependent portion of the gallbladder lumen. The gallbladder is distended. Electronically Signed: Luigi Ling MD at 9:34 EDT , Gallbladder Ultrasound 12/06/21 09:52 IMPRESSION: Solitary nonmobile gallstone with gallbladder distention. Electronically Signed: Luigi Ling MD at 11:08 EDT , Discharge Plan Triage Chief Complaint: Flank Pain ED Provider: Mirza Whitley Dx/Rx/DC Orders Clinical Impression: Cholelithiasis, Right upper quadrant abdominal pain Instructions: ED Gallstones with Biliary Colic Prescriptions: New hydrocodone-acetaminophen [hydrocodone-acetaminophen] 5-325 mg tablet 1 tab PO Q6H PRN PRN (Reason: Pain) 3 Days Qty: 10 0RF No Action Prenatabs FA 1 TABLET tablet 1 tab PO DAILY ferrous sulfate [iron] 325 mg (65 mg iron) Tablet 325 mg PO DAILY ibuprofen [ibuprofen] 600 MG tablet 600 mg PO Q6H PRN (Reason: Pain) 10 Days Qty: 30 1RF Primary Care Provider: Zechariah Chaudhary Referrals: Song Cummins MD [Med Staff - Active Staff] - 3-5 Days Zechariah Chaudhary MD [Primary Care Provider] - 5-7 Days Disposition Disposition: Home, Self Care
--- NOTE | 2021-12-06 08:18 | CT_ITS ---
STUDY: CT ABDOMEN AND PELVIS WITHOUT CONTRAST REASON FOR EXAM: Female, 26 years old. Right flank pain. Nausea and vomiting. RADIATION DOSAGE (If Supplied By Facility): CTDIvol = ( 17.82 ) mGy, DLP = ( 939.56 ) mGycm TECHNIQUE: Transaxial images were obtained from the dome of the diaphragm to the symphysis pubis without oral contrast, and without intravenous contrast. Sagittal and coronal images were reconstructed. Individualized dose optimization techniques were used for this CT. COMPARISON: None. FINDINGS: The visualized lung bases are unremarkable. The visualized portions of the heart are within normal limits. Normal liver. Multiple small layering gallstones along the dependent portion of the gallbladder lumen. The gallbladder is distended. Normal spleen. Normal pancreas. Normal bilateral adrenal glands. Normal right kidney. Normal left kidney. There is a small hiatal hernia. Normal small intestine. Normal colon. The appendix is visualized and appears normal. Normal abdominal aorta. Normal inferior vena cava. Normal retroperitoneum. Normal urinary bladder. Calcified phleboliths are seen in the pelvis. Normal abdominal wall. Normal osseous structures. CT/Abdomen/Pelvis without Cont IMPRESSION: There are multiple small layering gallstones along the dependent portion of the gallbladder lumen. The gallbladder is distended. Electronically Signed: Luigi Ling MD at 9:34 EDT ,
[2021-12-06] MEDS: 0.9% Normal Saline 1,000 ML 1000 ML IV (08:22)
[2021-12-06] MEDS: Morphine 4 MG/ML Syringe IV ×2 (08:22→11:13)
[2021-12-06 08:34] LABS: Absolute Lymphocyte Count 2.07 X10^3/uL (0.83-4.51); Absolute Neutrophil Count 3.2 X10^3/uL (2.0-7.7); Basophil# 0.05 X10^3/uL; Basophil% 0.9 % (0-1); Eosinophil# 0.14 X10^3/uL; Eosinophils% 2.4 % (0-5); Hematocrit 38.9 % (37-47); Hemoglobin 13.3 g/dL (12.0-15.0); Lymphocyte # 2.07 X10^3/ul (0.83-4.51); Lymphocyte % 35.4 % (19-41); Mean Corp Hgb Conc 34.2 g/dL (32-36); Mean Corpuscular Hgb 29.6 pg (27.0-32.0); Mean Corpuscular Volume 86.6 fL (81-99); Mean Platelet Vol. 10.6 fl (6.2-12.0); Monocyte% 6.8 % (0-10); NRBC Flagged by Analyzer 0 % (0-5); Neutrophil # 3.18 X10^3/uL (2.7-7.7); Neutrophil % 54.3 % (47-70); Platelet Count 235 K/mm3 (150-450); RBC Distribution Width CV 11.5 % (11.6-14.6); Red Blood Count 4.49 M/mm3 (4.2-5.4); White Blood Count 5.9 K/mm3 (4.4-11.0)
[2021-12-06 08:40] LABS: Internal QC Validated? YES +Cl - CLEAR BKGD; Pregnancy, Serum, hCG Quali. NEGATIVE Negative
[2021-12-06 08:48] LABS: ALB/GLOB Ratio 1.1 RATIO (0.9-2.4); AST(SGOT) 15 U/L (15-37); Alanine Aminotransfer ALT/SGPT 24 U/L (13-56); Albumin, Serum 3.9 g/dL (3.2-5.0); Alkaline Phosphatase 95 U/L (45-117); Anion Gap 7 (5-15); BUN 18 mg/dL (7-18); BUN/Creat Ratio 26.4 RATIO (10-20); Calcium,Total 8.7 mg/dL (8.5-10.1); Chloride 107 mmol/L (98-107); Creatinine, Serum 0.68 mg/dL (0.55-1.02); EST Glomerular Filtration Rate 112 mL/min (>60); Est Glom Filt Rate - Afr Amer 135 mL/min (>60); Estimated Creatinine Clearance 109.21 ml/min; Globulin 3.7 g/dL (2.2-4.2); Glucose 99 mg/dL (74-106); Lipase 235 U/L (73-393); Potassium 3.5 mmol/L (3.5-5.1); Protein, Total 7.6 g/dL (6.4-8.2); Sodium Level 140 mmol/L (136-145)
[2021-12-06 09:46] VITALS: BP 145/88; PULSE 64; RESP 16; TEMP 36.4; O2SAT 98
[2021-12-06 09:46] LABS: Mucous, Urine 0 SEEN /hpf (<or=2+); Red Blood Cells-Urine 0 SEEN /hpf (0-5)
--- NOTE | 2021-12-06 09:52 | US_ITS ---
STUDY: ABDOMINAL ULTRASOUND - RIGHT UPPER QUADRANT REASON FOR VISIT: Female, 26 years old right upper quadrant pain with nausea and vomiting. TECHNIQUE: Ultrasound evaluation of the right upper quadrant was performed with real-time and static lopez-scale imaging. TECHNICAL QUALITY: Adequate. COMPARISON: Comparison is made with prior CT scan performed earlier in the day. FINDINGS: Liver: The liver measures 16.6 cm. There is normal echogenicity of the liver. The bile ducts are within normal limits. There is hepatic color flow. The direction of portal flow is hepatopetal. There is no demonstrated mass lesion. Gallbladder: There is a distended gallbladder. The gallbladder wall measures 1.6 mm. There is a positive sonographic Monterroso''s sign. There is no pericholecystic fluid. There is a solitary nonmobile gallstone measuring 5.3 mm in the region of the neck of the gallbladder. Common Bile Duct (C.B.D.): The common bile duct measures 5.7 mm. Pancreas: Normal size of the head, body and tail of the pancreas. There is normal echogenicity of the pancreas. There is no demonstrated pancreatic mass or cyst. Right Kidney: Normal size of the right kidney. The right kidney measures 10.6 x 5.3 cm x 4.5 cm. Normal renal cortex. The right cortex measures 1.2 cm. Findings suggestive of a medullary sponge kidney. There is no demonstrated renal mass or cyst. There is no right hydronephrosis. US/Gallbladder IMPRESSION: Solitary nonmobile gallstone with gallbladder distention. Electronically Signed: Luigi Ling MD at 11:08 EDT ,
[2021-12-06 09:55] LABS: Color, Urine Yellow (Yellow); Glucose, Dipstick Normal (Normal); Ketone-Dipstick Negative (Negative); Leukocyte Esterase-Dipstick 25 /ul (Negative); Nitrite-Dipstick Negative (Negative); Occult Blood-Urine Negative /ul (Negative); Protein-Dipstick Negative (Negative); Specific Gravity, Urine 1.015 (1.002-1.030); Urine Bilirubin Dipstick Negative (Negative); Urine Clarity Clear (Clear); Urine Urobilinogen Normal (Normal)
[2021-12-06 10:11] LABS: Bacteria 1+ /hpf (None Seen); Squamous Epithelial Cells - UA 0-5 SEEN /hpf (5-10); White Blood Cells 0-5 SEEN /hpf (0-5)
[2021-12-06 11:00] VITALS: BP 141/79; PULSE 68; O2SAT 99
[2021-12-06] MEDS: Ondansetron 4 MG/2 ML Vial IV (11:13)
== END 2021-12-06 11:59 | disposition home or self-care (01) ==
PROVIDERS: Emergency Provider Emergency Medicine; PCP Family Medicine; Visit Provider Emergency Medicine
DX: K80.20 Calculus of gallbladder without cholecystitis without obstruction (principal)
CPT/HCPCS: 74176; 76705; 80053; 81001; 83690; 84703; 85025; 96361; 96374; 96375; 96376; 99283; J7030; A4216; J2405

== ENCOUNTER 2021-12-25 12:58 | Day surgery (SDC) | payer BC, SELFPAY ==
--- NOTE | 2021-12-20 06:54 | EKG12_ITS ---
Test Reason : PRE OP Blood Pressure : / mmHG Vent. Rate : 063 BPM Atrial Rate : 063 BPM P-R Int : 138 ms QRS Dur : 096 ms QT Int : 414 ms P-R-T Axes : 057 041 038 degrees QTc Int : 423 ms Sinus rhythm with Premature atrial complexes Incomplete right bundle branch block Confirmed by HANSA YIN, RUPALI ([id number]), commercial production editor GERONIMO FRENCH ([id number]) on 12/21/2021 10:30:06 AM Referred By: Song Cummins Confirmed By:RUPALI SANTO MD
[2021-12-20 09:44] LABS: Partial Thromboplast Time 25.3 Seconds (24.1-36.2)
[2021-12-20 09:48] LABS: Prothrombin Time (Protime)PT. 12.5 SECONDS (11.7-14.9)
[2021-12-23 09:49] LABS: KEPPRA (LEVETIRACETAM) 9.9 ug/mL (10.0-40.0)
[2021-12-25] VITALS (10 sets, daily range): BP systolic 120–160; BP diastolic 75–98; PULSE 66–90; RESP 16–18; TEMP 36.1–36.7; O2SAT 93–100; BMI 33.7
--- NOTE | 2021-12-25 | GALL_PTH ---
PATIENT: PATRICIA HEART LOC: [facility] [place][id number] AGE/SX: 26/F ROOM: RE12/25/[address]: Dr. Song Cummins MD : 1995 BED: DIS: 12/25/2021 SPEC #: [id number] RECD: 12/26/21 08:26 STATUS: DEBORA CHIQUITA #: [id number] NIRMAL: 12/25/21 00:[address]: Song Cummins DEPT: SURGICAL PATHOLOGY RECD BY: Carlyn Wellington ENTERED: 12/26/21 08:52 SP TYPE: ELVIE RAE DR: Dr. Zechariah Chaudhary MD Tissues: Gallbladder, NOS Procedures: Surgery Specimen Level III HEADER OPERATION: Laparoscopic cholecystectomy with IOC PRE-OP DIAGNOSIS: Biliary colic and cholelithiasis TISSUE SUBMITTED: Gallbladder MICROSCOPIC DIAGNOSIS Gallbladder, cholecystectomy: Cholesterolosis, chronic cholecystitis and cholelithiasis. AM:tao 12/27/2021 MICROSCOPIC DESCRIPTION Slides are reviewed. GROSS DESCRIPTION Received is one container labeled with the patient's name and designated gallbladder. The specimen consists of a gallbladder measuring 7 x 3 x 3 cm. The external surface is smooth and glistening. Focally, it is granular, hemorrhagic and contains cautery artifact. The lumen of the gallbladder contains yellow-green mucoid bile and one yellow, chalky calculus measuring 1.2 cm in diameter. The mucosa is bile-stained and without any mass lesions. The gallbladder wall averages 0.1 cm in thickness and is free of mass lesions. Distillery Manager sections of the gallbladder and the cystic duct at margin of resection are submitted in one cassette. / AM:tao 12/26/2021 TC:3 CPT: 81808
[2021-12-25 13:23] LABS: Internal QC Validated? YES +Cl - CLEAR BKGD; Pregnancy, Urine Negative Negative
[2021-12-25] MEDS: Lactated Ringers 1,000 ML 15 ML IV (13:38)
--- NOTE | 2021-12-25 15:15 | HP.PCM_ITS ---
History and Physical Date of Admission: 12/25/21 [facility] [address] [place], [place] [id number] OFFICE VISIT Date of Service:? 12/12/21 MR#: [id number] Acct: [id number] Name:? PATRICIA HEART Rep #: [id number] : 1995 ? ? Provider: Dr. Song Cummins MD Age/Sex:? 26/F ? ? Location: [facility] Status: Signed Intake Vital Signs ? 12/06/2206:34 12/13/2207:14 Height 5 ft 4 in ? Weight: 197 lb 8.547 oz 199 lb 4 oz BMI 33.9 ? BP 130/98 H 124/85 H Blood Pressure Location ? Rt popliteal Position ? Sitting Respiration 22 H 17 Pulse 92 80 Pulse Source ? Monitor Temp 98 F 97.4 F L Temp Source Temporal Temporal Pulse Oximetry (%) 100 98 Oxygen Delivery Method ? room air Intake Visit Reasons:?GALLBLADDER Chief Complaint: gallbladder Is patient in pain?: Yes Allergies buspirone [From BuSpar] Adverse Reaction (Verified 12/12/21 08:16) Otherescitalopram [From Lexapro] Adverse Reaction (Verified 12/12/21 08:16) Other Medications levetiracetam 500 mg tablet (Keppra) 500 mg PO BID 12/12/21 [History Confirmed 12/12/21] PFSH Medical History? History of anxiety History of depression Seizure disorder Vaginal delivery Surgical History? History of surgery Family History?(Updated 12/12/21 @ 08:13 by Iram Abraham) Father Asthma HypertensionGrandfather SeizuresGrandmother Breast cancer Social History? Smoking Status:? Never smoker HPI HPI HPI: Patient is a 26-year-old female with right upper quadrant pain and nausea vomiting.? She reports that her symptoms occur about an hour after eating.? They have been going on for at least a month.? She reports that she went to the emergency room 1 day when it was very severe.? She is currently asymptomatic except for some mild pain today. ROS General General: No weight change, appetite, fatigue, colon cancer, breast cancer or weakness HEENT HEENT: No difficulty swallowing, eye injury, eye surgery, swollen glands or hoarseness Endo Endocrine: No thyroid disease, diabetes mellitus, thyroid cancer, Hair loss, heat intolerance or cold intolerance Skin Skin: No rash or changing moles Breast Breast: No left breast lump, right breast lump, nipple discharge, breast pain, abnormal mammogram, abnormal US or breast enlargement Musc Musculoskeletal: No back problems, arthritis, rheumatoid arthritis, gout or joint pain Cardio Cardiovascular: No murmur, pacemaker, heart disease, atrial fibrillation, high blood pressure, heart attack, heart stent, palpitations, shortness of breat with exertion or chest pain Psych Psychiatric: Yes anxiety; No depression or hearing voices Resp Respiratory: No shortness of breath, No sleep apnea, No cough, No COPD, No asthma, No emphysema and No wheezing Gastro Gastrointestinal: Yes abdominal pain, Yes nausea or vomiting, Yes diarrhea, Yes constipation, No blood in stool, Yes acid reflux, No hemorrhoids, No ulcers, Yes gallbladder problem and No black,tarry stools Shilo Hematologic: No blood thinners, No blood disorders, No bleeding, No anemia and No blood clots Neuro Neurologic: No system reviewed and no additional complaints, except as documented, No as per HPI, No abnormal gait, No abnormal hearing, No abnormal movements, No abnormal speech, No behavioral changes, No burning sensations, No confusion, No convulsions, No disequilibrium, No dizziness, No localized weakness, No frequent falls, No headache(s), No lack of coordination, No loss of vision, No memory loss, No numbness, No other visual disturbances, No radicular pain, No restless legs, No sensory deficit, No syncope, No tingling, No tremor(s), No weakness and No other Exam Const General: cooperative Orientation: alert and oriented x3 HENMT Head: normal to inspection Neck Neck: normal visual inspection and full ROM Chest Chest palpation & inspection: normal inspection of the chest Resp Effort & Inspection: normal respiratory effort Auscultation: clear to auscultation bilaterally Cardio Rate: regular rate Rhythm: regular rhythm GI Inspection: non-distended Palpation: soft and nontender Skin General: no rashes or lesions noted Neuro General: patient alert and patient oriented x3 Extrem General: full ROM Psych Appearance: grossly normal Mental Status: mental status grossly normal Assessment and Plan Assessment and Plan (1) Cholelithiasis: ?Status:?Acute (2) Right upper quadrant abdominal pain: ?Status:?Acute Plan Patient has cholelithiasis on ultrasound and she has been having right upper quadrant pain that is consistent with biliary colic.? I recommended laparoscopic cholecystectomy to her. I discussed the procedure in detail with the patient.? I discussed the risks, benefits, and alternatives of the procedure.? I discussed the risks including but not limited to bleeding, infection, injury to surrounding organs such as the liver, bile duct, bowels.? I did discuss the possibility of having to convert to an open procedure as well as the possibility that if any injuries occurred this may necessitate further surgery at a tertiary care center. Song Cummins MD Pager: [facility] [address] [place] [address], [address] [place] [address] Office: I have examined the patient and the H&P has been reviewed. There are no clinical changes since date of exam.
[2021-12-25] MEDS: Cefotetan 2 GM in 0.9% NS 100 ML IV (15:25)
--- NOTE | 2021-12-25 15:35 | RAD_ITS ---
INDICATION: Pain. EXAMINATION/TECHNIQUE: 88 limited spot intraoperative films are presented for evaluation. Total Fluoroscopic Time: 15.4 cm AND number of Fluoroscopic Images: 80 OR Radiation dosage index: Not provided COMPARISON: None. FINDINGS: The provided images demonstrate injection of contrast via the cystic duct stump. There is filling of the intra and extrahepatic bile ducts which are of normal diameter and appearance. No stricture or filling defect. Free spillage of contrast into the duodenum. Please refer to the operative report for further details. RAD/Cholangiogram/ O R,Initial IMPRESSION: Negative intraoperative cholangiogram. Electronically Signed: Lorne Mccurdy DO at 22:43 EDT ,
[2021-12-25] MEDS: Bupivacaine 0.25% 30 ML Vial (16:09)
--- NOTE | 2021-12-25 16:27 | PCM.OPRPT ---
Report of Operation Date of Procedure: 12/25/21 Pre-Operative Diagnosis: Biliary colic and cholelithiasis Post-Operative Diagnosis: Same Surgery/Procedure Performed:: Laparoscopic cholecystectomy with cholangiogram Specimen's removed: Gallbladder and contents Description of Procedure: After obtaining informed consent patient was brought back to the operating room. General anesthesia was induced. The abdomen was prepped and draped in usual sterile fashion. A small midline incision was made superior to the umbilicus and deepened to the level of fascia. The fascia was elevated and incised. Next the peritoneum was elevated and incised in the same fashion. Finger sweep was performed and the Milian trocar was placed into the abdomen. The balloon was inflated. The abdomen was inflated to 15 mmHg. Next a camera was introduced into the abdomen and the abdomen was inspected. Next under direct visualization three 5-mm ports were placed one subxiphoid and 2 subcostal. Next the gallbladder was elevated and retracted toward the right shoulder. The peritoneum was stripped from the gallbladder. The infundibulum was located and retracted laterally. Next the triangle of Calot was dissected and the cystic duct and cystic artery were identified. Cholangiograms were performed. The Hadley clamp was used to clamp across the infundibulum and the catheter needle was inserted into the gallbladder. Under fluoroscopy contrast was instilled into the gallbladder and the common duct, cystic duct as well as proximal hepatic ducts were identified. There was good filling of the duodenum. There were no filling defects noted in the common bile duct. The clamp was removed as well as the needle and the infundibulum was grasped once more. Three hemolock clips were placed across the cystic duct. The cystic duct was then divided leaving 2 clips on the stump. The cystic artery was clipped and divided in the same fashion. The hook cautery was then used to take the gallbladder off of the gallbladder bed. Hemostasis was obtained. Gallbladder fossa was irrigated and no active bleeding or bile leakage was noted. Next the camera was introduced in the subxiphoid port. An Endopouch bag was placed through the umbilical port and the gallbladder was placed into it. The gallbladder was then removed through the umbilical incision. The camera was then reinserted through the umbilical port. The gallbladder fossa was inspected once more and noted to be hemostatic with no leaking bile. The abdomen was suctioned dry. The 5 mm ports were removed under direct visualization. The umbilical port was then removed and the air was removed from the abdomen. Next using an 0 Vicryl suture the umbilical fascia was closed in a [id number] fashion. The umbilical port site was irrigated local anesthetic was administered to all the incisions. All the incisions were closed with interrupted subcuticular 4-0 Monocryl sutures followed by Steri-Strips and dressings. The patient was awoken and taken to PACU in stable condition. Admit VTE Documentation VTE Mechan Device Prophylaxis: SCD's
--- NOTE | 2021-12-25 16:28 | DCINST_ITS ---
Discharge Instructions Procedure Gallbladder Diet Discharge Diet: Light diet - advance as tolerated Activity Discharge Activity: May Not Drive (for 2-3 days or while taking narcotic pain medications.) and - (Do not drive, work heavy equipment or sign legal documents for 24 hours.) May shower in (days): 1 Lifting Restrictions: 20 lbs for 2 weeks Additional Activity Instructions:: Pain medication may cause nausea. You should typically eat light foods as you take your pain medications. Pain medication may also cause constipation. If this is a problem for you, please discuss with your doctor. Dressing / Incision Call your doctor if your incision/area has: Continuous Slow Oozing, Sudden Increased Bleeding, Increased Pain/ Swelling, Increased Redness and Foul Smelling Discharge Call your doctor if you observe: Fever of 101 or Higher Suture Line Care: Avoid Pulling/Pushing and Avoid Pinching/Bending Remove Dressing in: 2 days Additional Dressing/Incision Instructions:: Leave operative bandaids on for 2 days. When you remove dressing, leave Steri-Strips on until your follow-up appointment, or until the Steri-Strips fall off on their own. Follow Up Care Please Follow Up With: Song Cummins MD When: Please call to schedule 2 week follow up appointment. [phone] Test Results: Test results from this visit will be discussed in further detail at your follow- up appointment, if applicable. Discharge Plan Admission Attending Provider: Song Cummins Primary Care Provider: Zechariah Chaudhary Discharge Orders/Prescriptions Prescriptions: New oxycodone 5 mg tablet 5 - 10 mg PO Q6H PRN (Reason: pain) 5 Days Qty: 30 0RF No Action levetiracetam [Keppra] 500 mg tablet 500 mg PO BID Referrals / Follow Up: Zechariah Chaudhary MD [Primary Care Provider] - Disposition Disposition (needs filled in before D/C Order can be placed): Home, Self Care
--- NOTE | 2021-12-25 16:43 | EKG12_ITS ---
Test Reason : CP Blood Pressure : / mmHG Vent. Rate : 078 BPM Atrial Rate : 078 BPM P-R Int : 152 ms QRS Dur : 102 ms QT Int : 422 ms P-R-T Axes : 045 027 009 degrees QTc Int : 481 ms Normal sinus rhythm with sinus arrhythmia Nonspecific ST abnormality Prolonged QT Abnormal ECG When compared with ECG of 20-DEC-2021 06:56, Premature atrial complexes are no longer Present QT has lengthened Confirmed by KARL YIN, ELIGIO ([id number]), video editor GERONIMO FRENCH ([id number]) on 12/28/2021 7:53:03 AM Referred By: Song Cummins Confirmed By:ELIGIO BARAJAS MD
[2021-12-25] MEDS: Nitroglycerin (INPATIENT USE) 0.4 MG TAB.SUBL SL (17:11)
--- NOTE | 2021-12-25 17:11 | SUR.PHASEI ---
PT C/O CHEST PRESSURE WHEN WAKING UP FROM SURGERY. DR BENTLEY AWARE. EKG, TROPONIN, AND SL NITRO PRN UP TO 3 DOSES ORDERED.
[2021-12-25 17:35] LABS: Troponin-I HS 4 pg/mL (3.0-54.0)
[2021-12-25] MEDS: oxyCODONE 5 MG Tablet PO (18:25)
== END 2021-12-25 18:41 | disposition home or self-care (01) ==
LOC: SDC 12:59 → AC 12:59
PROVIDERS: Anesthesiology; PCP Family Medicine; Referring Provider Surgery; Visit Provider Surgery
PROC: (CPT 47610; principal; 2021-12-25 12:45)
DX: K80.10 Calculus of gallbladder with chronic cholecystitis without obstruction (principal); G40.909 Epilepsy, unspecified, not intractable, without status epilepticus; Z79.899 Other long term (current) drug therapy
CPT/HCPCS: 47563; 00790; 36415; 74300; 76000; 80177; 81025; 84484; 85610; 85730; 88304; 93005; J7120; J2405

== ENCOUNTER 2023-04-12 22:23 | Emergency (ER) | payer BC, SELFPAY ==
[2023-04-12 22:24] VITALS: BP 165/96; PULSE 100; RESP 16; TEMP 36.4; O2SAT 100; BMI 40.1
--- NOTE | 2023-04-12 22:32 | ED.VIS.GI ---
HPI HPI - GI History of Present Illness Chief Complaint: GI Bleed Informant: patient Abdominal Pain/Flank Pain Onset: Today Context: Sudden Onset Timing: Continuous Quality: Burning and Cramping Location: Epigastric Worsened by: Food Relieved by: Nothing Nausea/Vomiting/Emesis GI Symptom: Positive for Nausea and Vomiting Quality: Positive for Hematemesis Episodes: 1 Diarrhea/Melena/Hematochezia GI Symptom: Negative for Diarrhea, Melena or Hematochezia Associated Symptoms Associated Symptoms: Negative for Dysuria, Frequency, Hematuria or Urgency Narrative Narrative: Patient presents with abdominal pain, nausea, vomiting, and hematemesis that began today. Patient states that began approxi-1 hour prior to arrival. Patient states there was moderate amount of blood in her emesis. Patient states it was bright red. Patient denies any coffee-ground emesis. Patient denies any diarrhea, melena, or hematochezia. Patient states her pain is burning and cramping. Patient states the pain is over the epigastric area. Patient states it became worse after eating dinner tonight. Patient states that after she ate dinner she started having some pain in her upper abdomen and then had 1 episode of vomiting. That is when she noticed the hematemesis. Patient denies any fevers or chills. Patient denies any abnormal vaginal bleeding or discharge. [facility] Medical History Anemia Easy bruising History of anxiety Leg cramps Non-smoker Restless legs Seizure disorder Vaginal delivery Wears glasses Home Medications levetiracetam 500 mg tablet (Keppra) 500 mg PO BID 12/12/21 [History Last Taken Unknown] oxycodone 5 mg tablet 5 - 10 mg (1 - 2 x 5 mg) PO Q6H PRN pain 5 days #30 tabs 12/25/21 [Rx Last Taken Unknown] omeprazole 20 mg capsule,delayed release 20 mg PO DAILY #30 CAPSULES 04/13/23 [Rx Last Taken Unknown] Allergy/AdvReac Type Severity Reaction Status Date / Time buspirone [From BuSpar] AdvReac Other Verified 04/12/23 22:27 escitalopram [From Lexapro] AdvReac Other Verified 04/12/23 22:27 Family History (Updated 12/12/21 @ 08:13 by Iram Abraham) Father Asthma Hypertension Grandfather Seizures Grandmother Breast cancer Surgical History Hx of tonsillectomy Hx of tooth extraction Social History Smoking Status: Never smoker ROS ROS ED Constitutional Constitutional ED: Denies chills or fever(s) Eyes Eyes: Denies blurry vision or change in vision ENT ENT ED: Denies rhinorrhea or sore throat Cardiovascular Cardiovascular: Denies chest pain or palpitations Respiratory/Chest Respiratory/Chest: Denies cough or dyspnea Gastrointestinal Gastrointestinal: Reports abdominal pain, nausea and vomiting; Denies diarrhea or melena Genitourinary Genitourinary ED: Denies dysuria or hematuria Musculoskeletal Musculoskeletal: Reports back pain; Denies neck pain Integumentary Denies abscess or rash Neurologic Neurologic: Denies headache(s) or weakness Allergic/Immunologic Allergic/Immunologic ED: Denies mouth swelling or urticaria EXAM Physical Exam Const Vital Signs: 04/12/23 22:24 Temperature 97.6 F L Temperature Source Temporal Pulse Rate 100 Respiratory Rate 16 Blood Pressure 165/96 H Blood Pressure Mean 119 Pulse Ox 100 Oxygen Delivery Method Room Air Positive well nourished, well developed and obese General Appearance ED: well developed and NAD Nutritional Appearance: obese HEENT Reports moist mucous membranes Neck supple and no JVD Resp normal respiratory effort and clear to auscultation bilaterally Cardio regular rate and regular rhythm GI non-distended Palpation: soft and tender epigastric, LUQ and RUQ; Negative for guarding or rebound tenderness present Neuro CN's II-XII intact bilaterally, moves all extremities and no sensory deficits noted Sensorium / Orientation: alert Motor Exam: strength 5/5 throughout Psych mental status grossly normal MDM MDM MDM Narrative Medical decision making narrative: Differential diagnosis includes gastritis, peptic ulcer disease, duodenal ulcer, pancreatitis, and coagulopathy. CBC will be obtained to assess for leukocytosis and anemia. Comprehensive metabolic profile will be obtained to assess for hepatic function, renal function, and electrolyte abnormality. Lipase will be obtained to assess for pancreatitis. Serum hCG will be obtained to assess for . Urinalysis will be obtained to assess for urinary tract infection and hematuria. Lab Data Attestation: I reviewed the patient's lab results. Lab results narrative: CBC was reviewed and was within normal limits. Comprehensive metabolic profile was reviewed and was within normal limits. Lipase was reviewed and was normal. Urinalysis was reviewed. There is no evidence of urinary tract infection or hematuria. Serum hCG was reviewed and was negative. Labs: Laboratory Results - last 24 hr 04/12/23 23:00 WBC 7.7 RBC 4.63 Hgb 13.3 Hct 40.7 MCV 87.9 MCH 28.7 MCHC 32.7 RDW Std Deviation 38.2 RDW Coeff of Ricarda 11.9 Plt Count 368 MPV 10.3 Immature Gran % (Auto) 0.300 Neut % (Auto) 52.2 Lymph % (Auto) 34.0 [place] % (Auto) 6.4 Eos % (Auto) 6.1 H Baso % (Auto) 1.0 Absolute Neuts (auto) 4.0 Absolute Lymphs (auto) 2.62 Nucleated RBC % 0 Sodium 143 Potassium 3.9 Chloride 109 H Carbon Dioxide 30.0 Anion Gap 4 L BUN 15 Creatinine 1.03 H Estim Creat Clear Calc 98.36 Est GFR (MDRD) Af Amer 83 Est GFR (MDRD) Non-Af 69 BUN/Creatinine Ratio 14.6 Glucose 100 Calcium 9.6 Total Bilirubin 0.30 AST 18 ALT 28 Alkaline Phosphatase 89 Total Protein 7.4 Albumin 3.9 Globulin 3.5 Albumin/Globulin Ratio 1.1 Lipase 50 Serum , Qual NEGATIVE Urine Color Yellow Urine Clarity Clear Urine pH 6.5 Ur Specific [place] 1.025 Urine Protein Negative Urine Glucose (UA) Normal Urine Ketones Negative Urine Occult Blood Negative Urine Nitrite Negative Urine Bilirubin Negative Urine Urobilinogen Normal Ur Leukocyte Esterase Negative Urine RBC 0 SEEN Urine WBC 0 SEEN Ur Squamous Epith Cells 0-5 SEEN Urine Bacteria RARE Urine Mucus 0 SEEN Treatment and Re-Evaluation :: Patient was given IV fluids and Zofran. Patient was given a GI cocktail. Patient is feeling better on reevaluation. Patient was advised of her findings. Patient was given a prescription for omeprazole. Patient was instructed to start with a bland diet. Patient was instructed to follow-up with her primary care physician in 5 to 7 days. Patient was instructed to return if worse in any way. Patient understood and was agreeable with the plan. All questions were answered. Discharge Plan Triage Chief Complaint: GI Bleed ED Provider: Mirza Whitley Dx/Rx/DC Orders Clinical Impression: Upper gastrointestinal bleed, Morbid obesity with BMI of 40.0-44.9, adult Instructions: ED Upper GI Bleeding (Stable) Prescriptions: New omeprazole [omeprazole] 20 mg capsule,delayed release(DR/EC) 20 mg PO DAILY Qty: 30 0RF No Action levetiracetam [Keppra] 500 mg tablet 500 mg PO BID oxycodone 5 mg tablet 5 - 10 mg PO Q6H PRN (Reason: pain) 5 Days Qty: 30 0RF Primary Care Provider: Zechariah Chaudhary Referrals: Zechariah Chaudhary MD [Primary Care Provider] - 5-7 Days Disposition Disposition: Home, Self Care
[2023-04-12] MEDS: 0.9% Normal Saline (1000mL) 1,000 ML 1000 ML IV (22:56)
[2023-04-12] MEDS: Ondansetron 4 MG/2 ML Vial IV (22:57)
[2023-04-12] MEDS: Mag Hydrox/Al Hydrox/Simeth 30 ML UDC PO (22:57)
[2023-04-12 23:07] LABS: Mucous, Urine 0 SEEN /hpf (<or=2+); Red Blood Cells-Urine 0 SEEN /hpf (0-5); White Blood Cells 0 SEEN /hpf (0-5)
[2023-04-12 23:12] LABS: Absolute Lymphocyte Count 2.62 X10^3/uL (0.83-4.51); Basophil# 0.08 X10^3/uL; Eosinophil# 0.47 X10^3/uL; Eosinophils% 6.1 % (0-5); Hematocrit 40.7 % (37-47); Hemoglobin 13.3 g/dL (12.0-15.0); Lymphocyte # 2.62 X10^3/ul (0.83-4.51); Mean Corp Hgb Conc 32.7 g/dL (32-36); Mean Corpuscular Hgb 28.7 pg (27.0-32.0); Mean Corpuscular Volume 87.9 fL (81-99); Mean Platelet Vol. 10.3 fl (6.2-12.0); Monocyte# 0.49 X10^3/uL; Monocyte% 6.4 % (0-10); NRBC Flagged by Analyzer 0 % (0-5); Neutrophil # 4.03 X10^3/uL (2.7-7.7); Neutrophil % 52.2 % (47-70); Platelet Count 368 K/mm3 (150-450); RBC Distribution Width CV 11.9 % (11.6-14.6); RBC Distribution Width SD 38.2 fl (35.1-43.9); Red Blood Count 4.63 M/mm3 (4.2-5.4); White Blood Count 7.7 K/mm3 (4.4-11.0)
[2023-04-12 23:13] LABS: Color, Urine Yellow (Yellow); Glucose, Dipstick Normal (Normal); Ketone-Dipstick Negative (Negative); Leukocyte Esterase-Dipstick Negative /ul (Negative); Nitrite-Dipstick Negative (Negative); Occult Blood-Urine Negative /ul (Negative); Protein-Dipstick Negative (Negative); Specific Gravity, Urine 1.025 (1.002-1.030); Urine Bilirubin Dipstick Negative (Negative); Urine Clarity Clear (Clear); Urine Urobilinogen Normal (Normal); Urine pH 6.5 (5.0 - 8.0)
[2023-04-12 23:22] LABS: Bacteria RARE /hpf (None Seen); Internal QC Validated? YES +Cl - CLEAR BKGD; Pregnancy, Serum, hCG Quali. NEGATIVE Negative; Squamous Epithelial Cells - UA 0-5 SEEN /hpf (5-10)
--- OUTSIDE RECORDS SUMMARY | 2023-04-12 23:27 | XMS RPT_ITS | CCD ---
Author Name Unknown Address [id number] [place] [address] Organization [facility] Care Team Providers Care Registered Health Nurse Name Role Phone Unavailable Primary Care Provider Dara NEUMANN MD, DR PEDRO Primary Care Physician Mayela Neumann MD Primary Care Provider Mayela Neumann MD Primary Care Provider Mayela Neumann MD Primary Care Provider MAYELA NEUMANN Primary Care Unavailable ISRAEL GORDON Attending UnavailISRAEL Michaud Admitting MAYELA Gonzalez Primary Care Unavailable MIKI VIRK Attending Unavailable Claudia Chilel RN Unavailable ARABELLA FAIR Attending Unavailable MAYELA NEUMANN Primary Care Unavailable ARABELLA FAIR Attending Unavailable MAYELA NEUMANN Primary Care Unavailable MIKI VIRK Referring Unavailable MAYELA NEUMANN Primary Care Unavailable MARÍA PETERSON Attending Unavailable MAYELA NEUMANN Primary Care Unavailable MARÍA PETERSON Attending Unavailable MAYELA NEUMANN Primary Care Unavailable MAYELA NEUMANN Primary Care Unavailable MAYELA NEUMANN Primary Care Unavailable Allergies Allergy Classification Reported Allergen(s) Allergy Type Date of Onset Reaction(s) Facility (20 sources) busPIRone; Translations: [BUSPIRONE] Drug Allergy 08-20-2019 Other: See Comments [facility] (20 sources) Escitalopram; Translations: [escitalopram] Drug Allergy 08-20-2019 Mental Status Change [facility] Medications Current Medications Medication Drug Class(es) Dates Sig (Normalized) Sig (Original) hydrOXYzine hydrochloride 25 mg oral tablet (1 source) Antihistamine Start: 02-07-2022 End: 03-09-2022 take 1 tablet by mouth three times daily as needed for anxiety hydrOXYzine HCl (ATARAX) 25 mg tablet Indications: Anxiety with depression Take 1 tablet by mouth three times daily as needed for anxiety. 90 tablet 5 02/07/2022 03/09/2022 Active Completed/Discontinued Medications Medication Drug Class(es) Dates Sig (Normalized) Sig (Original) clonazePAM 0.5 mg disintegrating oral tablet (2 sources) Benzodiazepine Start: 11-07-2022 End: 12-07-2022 clonazePAM orally disintegrating (KLONOPIN WAFER) 0.5 mg disintegrating tablet Indications: Convulsions, unspecified convulsion type (HCC) Take on tablet by mouth as needed for a convulsive seizure or 2 or more seizures in one day. Do not exceed more than 2 tabs in 24 hours. 10 tablet 0 11/07/2022 Active Problems Active Problems Problem Classification Problem Date Documented Da te Episodic/Chronic Anxiety disorders (20 sources) Generalized anxiety disorder; Translations: [Generalized anxiety disorder] Onset: 05-13-2019 02-11-2020 Chronic Early or threatened labor (1 source) Premature uterine contraction; Translations: [False labor before 37 completed weeks of gestation, unspecified trimester] Episodic Epilepsy; convulsions (9 sources) Epilepsy, not refractory; Translations: [Epilepsy, unspecified, not intractable, without status epilepticus] Onset: 09-21-2022 09-21-2022 Chronic Genitourinary symptoms and ill-defined conditions (1 source) Genuine stress incontinence; Translations: [Stress incontinence (female) (male)] 10-30-2022 Chronic Immunizations and screening for infectious disease (1 source) Exposure to Streptococcus; Translations: [Contact with and (suspected) exposure to other bacterial communicable diseases] Episodic Other complications of (3 sources) Maternal obesity complicating , childbirth and the puerperium, antepartum; Translations: [Obesity complicating , third trimester] Chronic Other complications of (20 sources) Anemia in mother complicating , childbirth AND/OR puerperium; Translations: [Anemia complicating , third trimester] Onset: 06-13-2021 Chronic Other complications of (1 source) Anemia during - baby not yet delivered; Translations: [Anemia complicating , unspecified trimester] Chronic Other female genital disorders (1 source) Superficial pain on intercourse; Translations: [Superficial (introital) dyspareunia] 10-30-2022 Chronic Other nutritional; endocrine; and metabolic disorders (9 sources) Obese class II; Translations: [Obesity, unspecified] Onset: 09-21-2022 09-21-2022 Chronic Other upper respiratory disease (1 source) Pain in throat; Translations: [Pain in throat] Episodic Other upper respiratory infections (1 source) Sore throat symptom; Translations: [Acute pharyngitis, unspecified] Episodic Prolapse of female genital organs (1 source) Midline cystocele; Translations: [Cystocele, midline] 10-30-2022 Chronic Residual codes; unclassified (1 source) Gestation period, 32 weeks; Translations: [32 weeks gestation of ] Episodic Residual codes; unclassified (2 sources) Gestation period, 34 weeks; Translations: [34 weeks gestation of ] Episodic Residual codes; unclassified (1 source) Gestation period, 35 weeks; Translations: [35 weeks gestation of ] Episodic Residual codes; unclassified (1 source) Gestation period, 36 weeks; Translations: [36 weeks gestation of ] Episodic Viral infection (1 source) Viral disease; Translations: [Viral infection, unspecified] Episodic Past or Other Problems Problem Classification Problem Date Documented Date Episodic/Chronic Epilepsy; convulsions (20 sources) Seizure; Translations: [Unspecified convulsions] Onset: 10-16-2021 Episodic Other complications of (20 sources) Finding of pattern of ; Translations: [Supervision of other high risk pregnancies, unspecified trimester] Onset: 12-01-2020 12-01-2020 Episodic Other complications of (20 sources) High risk ; Translations: [Supervision of other high risk pregnancies, second trimester] Onset: 04-04-2021 04-04-2021 Episodic Other nervous system disorders (20 sources) H/O: brain disorder; Translations: [Personal history of other diseases of the nervous system and sense organs] Onset: 09-17-2019 09-17-2019 Episodic Residual codes; unclassified (20 sources) H/O: depression; Translations: [Personal history of other complications of , childbirth and the puerperium] Onset: 09-17-2019 12-01-2020 Episodic Results Test Name Value Interpretation Reference Range Facil ity Vital Signs Date Time Vital Sign Value Performing Clinician Facility 10-30-2022 06:57-0400 Body height 162.6 cm María Peterson APRN.DOCTOR OF NAPRAPATHY Work Phone: [facility] 10-30-2022 06:57-0400 Body weight 102.97 kg María Peterson APRN.DOCTOR OF NAPRAPATHY Work Phone: [facility] 10-30-2022 06:57-0400 Diastolic blood pressure 60 mm[Hg] María Peterson APRN.DOCTOR OF NAPRAPATHY Work Phone: [facility] 10-30-2022 06:57-0400 Systolic blood pressure 120 mm[Hg] María Peterson APRN.DOCTOR OF NAPRAPATHY Work Phone: [facility] 06-08-2022 10:31-0400 Body height 162.6 cm Miki Virk MD Work Phone: [facility] 06-08-2022 10:31-0400 Body weight 90.72 kg Miki Virk MD Work Phone: [facility] 06-08-2022 10:31-0400 Diastolic blood pressure 84 mm[Hg] Miki Virk MD Work Phone: [facility] 06-08-2022 10:31-0400 Heart rate 64 /min Miki Virk MD Work Phone: [facility] 06-08-2022 10:31-0400 Respiratory rate 16 /min Miki Virk MD Work Phone: [facility] 06-08-2022 10:31-0400 Systolic blood pressure 127 mm[Hg] Miki Virk MD Work Phone: [facility] 05-17-2022 07:48-0400 Body temperature 97.39 [degF] Zahida Hurt APRN.DOCTOR OF NAPRAPATHY Work Phone: [facility] 05-17-2022 07:48-0400 Body weight 96.44 kg Zahida Hurt KILN FIRER.DOCTOR OF NAPRAPATHY Work Phone: [facility] 05-17-2022 07:48-0400 Diastolic blood pressure 74 mm[Hg] Zahida James KILN FIRER.DOCTOR OF NAPRAPATHY Work Phone: [facility] 05-17-2022 07:48-0400 Heart rate 98 /min Zahida Hurt KILN FIRER.DOCTOR OF NAPRAPATHY Work Phone: [facility] 05-17-2022 07:48-0400 Respiratory rate 21 /min Zahida Hurt KILN FIRER.DOCTOR OF NAPRAPATHY Work Phone: [facility] 05-17-2022 07:48-0400 SaO2% (BldA) [Mass fraction] 97 % Zahida Hurt KILN FIRER.DOCTOR OF NAPRAPATHY Work Phone: [facility] 05-17-2022 07:48-0400 Systolic blood pressure 122 mm[Hg] Zahida Hurt KILN FIRER.DOCTOR OF NAPRAPATHY Work Phone: [facility] 03-16-2022 11:41-0500 Body temperature 98.71 [degF] Hiren Jonesthomasglendy KILN FIRER.DOCTOR OF NAPRAPATHY Work Phone: [facility] 03-16-2022 11:41-0500 Body weight 90.99 kg Hiren Coleglendy KILN FIRER.DOCTOR OF NAPRAPATHY Work Phone: [facility] 03-16-2022 11:41-0500 Diastolic blood pressure 86 mm[Hg] Hiren Pendleglendy KILN FIRER.DOCTOR OF NAPRAPATHY Work Phone: [facility] 03-16-2022 11:41-0500 Heart rate 89 /min Hiren Pendleglendy KILN FIRER.DOCTOR OF NAPRAPATHY Work Phone: [facility] 03-16-2022 11:41-0500 Respiratory rate 16 /min Hiren Pendleglendy KILN FIRER.DOCTOR OF NAPRAPATHY Work Phone: [facility] 03-16-2022 11:41-0500 SaO2% (BldA) [Mass fraction] 97 % Hiren Pendleglendy KILN FIRER.DOCTOR OF NAPRAPATHY Work Phone: [facility] 01-20-2023 11:41-0500 Systolic blood pressure 132 mm[Hg] Hiren Coleglendy KILN FIRER.DOCTOR OF NAPRAPATHY Work Phone: [facility] 10-07-2021 05:00-0400 Diastolic blood pressure 78 mm[Hg] DR TYLER MACKEY DO [facility] 10-07-2021 05:00-0400 Heart rate 68 /min DR TYLER MACKEY DO [facility] 10-07-2021 05:00-0400 Respiratory rate 15 /min DR TYLER MACKEY DO [facility] 10-07-2021 05:00-0400 Systolic blood pressure 125 mm[Hg] DR TYLER MACKEY DO [facility] 10-07-2021 04:30-0400 Diastolic blood pressure 80 mm[Hg] DR TYLER MACKEY DO [facility] 10-07-2021 04:30-0400 Heart rate 78 /min DR TYLER MACKEY DO [facility] 10-07-2021 04:30-0400 Respiratory rate 17 /min DR TYLER MACKEY DO [facility] 10-07-2021 04:30-0400 Systolic blood pressure 123 mm[Hg] DR TYLER MACKEY DO [facility] 10-07-2021 04:00-0400 Diastolic blood pressure 97 mm[Hg] DR TYLER MACKEY DO [facility] 10-07-2021 04:00-0400 Heart rate 90 /min DR TYLER MACKEY DO [facility] 10-07-2021 04:00-0400 Systolic blood pressure 134 mm[Hg] DR TYLER MACKEY DO [facility] 10-07-2021 03:09-0400 Heart rate 91 /min DR TYLER MACKEY DO [facility] 10-07-2021 02:30-0400 Heart rate 103 /min DR TYLER MACKEY DO [facility] 10-07-2021 02:02-0400 Body height 162.[address] TYLER MACKEY DO [facility] 10-07-2021 02:02-0400 Body temperature 98.42 [degF] DR TYLER MACKEY DO [facility] 10-07-2021 02:02-0400 Body weight 86.[address] TYLER MACKEY DO [facility] 10-07-2021 02:02-0400 Heart rate 108 /min DR TYLER MACKEY DO [facility] 06-27-2021 11:05-0400 Body weight 89.36 kg Noni Nicholson APRN.CNM Work Phone: [facility] 06-27-2021 11:05-0400 Diastolic blood pressure 60 mm[Hg] Noni Nicholson APRN.CNM Work Phone: [facility] 06-27-2021 11:05-0400 Systolic blood pressure 124 mm[Hg] Noni Nicholson APRN.CNM Work Phone: [facility] 06-23-2021 11:07-0400 Body weight 89.81 kg Felipa Jeff MD Work Phone: [facility] 06-23-2021 11:07-0400 Diastolic blood pressure 70 mm[Hg] Felipa Jeff MD Work Phone: [facility] 06-23-2021 11:07-0400 Systolic blood pressure 116 mm[Hg] Felipa Jeff MD Work Phone: [facility] 06-13-2021 15:22-0400 Body weight 89.54 kg Petra Bang KILN FIRER.CNM Work Phone: [facility] 06-13-2021 15:22-0400 Diastolic blood pressure 70 mm[Hg] Petra Bang KILN FIRER.CNM Work Phone: [facility] 06-13-2021 15:22-0400 Systolic blood pressure 110 mm[Hg] Petra Bang KILN FIRER.CNM Work Phone: [facility] 05-30-2021 13:54-0400 Body weight 88.91 kg Sheila Hurt MD Work Phone: [facility] 05-30-2021 13:54-0400 Diastolic blood pressure 68 mm[Hg] Sheila Hurt MD Work Phone: [facility] 05-30-2021 13:54-0400 Systolic blood pressure 112 mm[Hg] Sheila Hurt MD Work Phone: [facility] Encounters Encounter Date Encounter Type Care Provider Facility Start: 04-10-2023 ambulatory Miki Verduzco Work Phone: Neurology Epilepsy Procedures Date Procedure Procedure Detail Performing Clinician Start: 06-08-2022 Follow-up visit Follow Up MIKI VIRK Start: 05-17-2022 STREP A MOLECULAR (POC) Zahida Hurt KILN FIRER.DOCTOR OF NAPRAPATHY Work Phone: Start: 03-16-2022 STREP A MOLECULAR (POC) Andrea Miranda KILN FIRER.DOCTOR OF NAPRAPATHY Work Phone: Start: 2021 Mri brain brain stem w/o contrast material Miki Virk MD Work Phone: Start: 10-06-2021 Adult depression screening assessment Mayela Neumann MD Work Phone: Start: 06-27-2021 URINE OB DIP B/O Moe Nicholson KILN FIRER.CNM Work Phone: Start: 06-23-2021 URINE OB DIP B/O Felipa Jeff MD Work Phone: Start: 06-13-2021 URINE OB DIP B/O Kamla Bang KILN FIRER.CNM Work Phone: Start: 06-13-2021 Us preg uterus after 1st trimest 02/25 gestation Sheila Hurt MD Work Phone: Start: 05-30-2021 URINE OB DIP B/O Sheila Hurt MD Work Phone: Start: 08-18-2019 Adult depression screening assessment Sheila Hurt MD Work Phone: Plan of Treatment Date Care Activity Detail Author Start: 05-03-2031 Urine microalbumin profile [facility] Start: 11-27-2025 Screening for malignant neoplasm of cervix Pap Testing [facility] Start: 02-25-2023 Depression Assessment Depression Assessment [facility] Start: 10-26-2022 Influenza vaccination [facility] Start: 10-06-2022 Adult depression screening assessment DEPRESSION SCREENING [facility] Start: 09-30-2022 PAP TESTING PAP TESTING [facility] Start: 03-16-2022 End: 03-30-2022 Influenza virus A and B RNA and SARS-CoV-2 (COVID-19) N gene panel - Respiratory specimen by MAYLIN with probe detection COVID WITH FLUA+B, ROUTINE Microbiology Routine Viral illness Expected: 03/16/2022, Expires: 03/30/2022 [facility] Work Phone: Immunizations Immunization Date Immunization Notes Care Provider Fa nate 05-02-2021 tetanus toxoid, redu raquel diphtheria toxoid, and acellular pertussis vaccine, adsorbed Sheila Hurt MD Work Phone: [facility] 12-07-2020 influenza, injectabl e, quadrivalent, contains preservative Sheila Hurt MD Work Phone: [facility] 12-07-2020 influenza virus vacc ine, unspecified formulation Miki Virk MD Work Phone: [facility] 03-27-2020 tetanus toxoid, redu raquel diphtheria toxoid, and acellular pertussis vaccine, adsorbed Sheila Hurt MD Work Phone: [facility] Work Phone: 03-08-2020 tetanus toxoid, redu raquel diphtheria toxoid, and acellular pertussis vaccine, adsorbed Sheila Hurt MD Work Phone: [facility] 12-11-2019 influenza, injectabl e, quadrivalent, contains preservative Sheila Hurt MD Work Phone: [facility] 12-11-2019 influenza, seasonal, injectable, preservative free Sheila Hurt MD Work Phone: [facility] Work Phone: 03-06-2019 influenza, injectabl e, quadrivalent, contains preservative Sheila Hurt MD Work Phone: [facility] 01-04-2016 influenza, seasonal, injectable, preservative free Sheila Hurt MD Work Phone: [facility] Work Phone: 08-09-2014 meningococcal polysaccharide (groups A, C, Y and W-135) diphtheria toxoid conjugate vaccine (MCV4P) Sheila Hurt MD Work Phone: [facility] Work Phone: 08-09-2014 tetanus toxoid, redu raquel diphtheria toxoid, and acellular pertussis vaccine, adsorbed Sheila Hurt MD Work Phone: [facility] Work Phone: 01-17-2010 human papilloma viru s vaccine, quadrivalent Sheila Hurt MD Work Phone: [facility] Work Phone: 08-04-2009 human papilloma viru s vaccine, quadrivalent Sheila Hurt MD Work Phone: [facility] Work Phone: 06-16-2009 human papilloma viru s vaccine, quadrivalent Sheila Hurt MD Work Phone: [facility] Work Phone: 03-10-2001 measles, mumps and rubella virus vaccine Sheila Hurt MD Work Phone: [facility] Work Phone: 03-10-2001 trivalent poliovirus vaccine, live, oral Sheila Hurt MD Work Phone: [facility] Work Phone: 01-28-1998 diphtheria, tetanus toxoids and acellular pertussis vaccine Sheila Hurt MD Work Phone: [facility] Work Phone: 01-28-1998 haemophilus influenz ae type b vaccine, conjugate unspecified formulation Sheila Hurt MD Work Phone: [facility] Work Phone: 01-28-1998 measles, mumps and rubella virus vaccine Sheila Hurt MD Work Phone: [facility] Work Phone: 04-16-1997 diphtheria, tetanus toxoids and acellular pertussis vaccine Sheila Hurt MD Work Phone: [facility] Work Phone: 04-16-1997 hepatitis B vaccine, pediatric or pediatric/adolescent dosage Sheila Hurt MD Work Phone: [facility] Work Phone: 04-16-1997 trivalent poliovirus vaccine, live, oral Sheila Hurt MD Work Phone: [facility] Work Phone: 04-16-1997 hepatitis B vaccine, unspecified formulation Mayela Neumann MD Work Phone: [facility] 02-12-1997 diphtheria, tetanus toxoids and acellular pertussis vaccine Sheila Hurt MD Work Phone: [facility] Work Phone: 02-12-1997 haemophilus influenz ae type b vaccine, conjugate unspecified formulation Sheila Hurt MD Work Phone: [facility] Work Phone: 02-12-1997 hepatitis B vaccine, pediatric or pediatric/adolescent dosage Sheila Hurt MD Work Phone: [facility] Work Phone: 02-12-1997 trivalent poliovirus vaccine, live, oral Sheila Hurt MD Work Phone: [facility] Work Phone: 1996 diphtheria, tetanus toxoids and acellular pertussis vaccine Sheila Hurt MD Work Phone: [facility] Work Phone: 1996 haemophilus influenz ae type b vaccine, conjugate unspecified formulation Sheila Hurt MD Work Phone: [facility] Work Phone: 1996 hepatitis B vaccine, pediatric or pediatric/adolescent dosage Sheila Hurt MD Work Phone: [facility] Work Phone: 1996 trivalent poliovirus vaccine, live, oral Sheila Hurt MD Work Phone: [facility] Work Phone: Payers Date Payer Category Payer Unknown [employer] PPO OOS [id number] 2020-Present [phone] [address] [place] [address] PPO [id number] 2020 Unknown [employer] PPO OOS [id number] 2020-Present [phone] [address] [place] [address] PPO [id number] 2020 Unknown [id number] Social History Date Type Detail Facility Start: 08-18-2019 End: 10-30-2022 Tobacco smoking status NHIS Never smoked tobacco [facility] Start: 08-18-2019 End: 10-30-2022 Tobacco use and exposure Smokeless tobacco non-user [facility] Start: 05-30-2021 End: 03-09-2023 Alcohol intake Ex-drinker (finding) [facility] Start: 09-17-2019 End: 02-05-2022 History SDOH Alcohol Frequency 3 [facility] Start: 09-17-2019 End: 02-05-2022 History SDOH Alcohol Std Drinks 2 [facility] Start: 04-02-2016 History SDOH Alcohol Comment occ [facility] Start: 03-04-2019 End: 02-05-2022 History SDOH Social Connections Muslim 1 [facility] Start: 08-18-2019 End: 02-05-2022 History SDOH Physical Activity DPW 4 [facility] Start: 08-18-2019 History SDOH Physica l Activity MPS 6 [facility] Start: 08-18-2019 End: 02-05-2022 History SDOH Stress 5 [facility] Start: 09-17-2019 Education 15 [facility] Start: 11-01-2020 [facility] Start: 1995 Sex Assigned At Female C [facility] Start: 05-06-2021 End: 10-23-2021 Exposure to SARS-CoV-2 (event) Not sure [facility] Start: 02-05-2022 History SDOH Alcohol Std Drinks 0 [facility] Start: 02-05-2022 End: 07-10-2022 History of Social function [facility] Start: 02-05-2022 End: 07-10-2022 Social connection and isolation panel [facility] Do you belong to any clubs or organizations such as yarsanism groups, unions, fraternal or athletic groups, or school groups? No [facility] Are you now , , , , never or living with a partner? [facility] How often to you hav e a drink containing alcohol? Never [facility] How many standard drinks containing alcohol do you have on a typical day? Patient does not drink [facility] Do you feel stress - tense, restless, nervous, or anxious, or unable to sleep at night because your mind is troubled all the time - these days [OSQ] Rather much [facility] (I/We) worried whedaisy er (my/our) food would run out before (I/we) got money to buy more. Never true [facility] Work Phone: Start: 10-17-2019 Gender identity Identifies as female gender (finding) [facility] Start: 04-03-2019 Sexual orientation Heterosexual (alejandra man) [facility] NEGATED: Highlighted rowStart: NINF History of tobacco use Passive smoker [facility] Work Phone: Functional Status Date Assessment Result Facility 10-07-2021 Functional Status Ambulating in pink, Ambulating in room, Awake [facility] 10-07-2021 Functional Status Standard Safet y ID band on, Allergy Band on, Call device within reach, Bed in low position, Wheels locked, Upper/Half-Length side-rails up, personal items within reach, Visitor at bedside [facility] Mental Status Date Assessment Result Facility 10-07-2021 Mental Status Orientation Oriented x 4 [facility] 10-07-2021 Mental Status [facility] Clinical Notes 10-02-2019 to 04-10-2023 Telephone Encounter - Lissette Balderas RN - 04/10/2023 12:22 PM ESTTelephone Encounter - Lissette Balderas RN - 04/10/2023 12:05 PM ESTAddendum Note - Faith Eubanks APRN.DOCTOR OF NAPRAPATHY - 11/07/2022 3:02 PM EDT Note Date & Type Note Facility 04-10-2023 Miscellaneous Notes Seizure Call Last Visit: 06/08/22 Next Visit: 05/09/23 Date and Time of seizure: 04/05/23 Seizure description: tingling in mouth, heart rate goes up, still aware, body feels like its on fire. Duration: 30-45 seconds Witnessed: yes Aura: tingling in mouth, burning sensation. No heart rate increase. A couple per day. Last Seizure: not certain TB: no UI: no Rescue Medication used: did not have it with her. ASM: LTG 100mg BID Denies taking LEV Triggers: flu, lack of sleep Back to [place]: yes Other: stomach hurts before, she was in the bathroom, has to have BM. Vomited after second one. Lissette Balderas RN Called patient for seizure description. No answer, Left VMM to return call to the office Lissette Sherrie, RN documented in this encounter [facility] 11-27-2022 Note HNO ID: [id number] Author: María Peterson APRN.CNP Service: ? Author Type: Nurse Practitioner Type: Progress Notes Filed: 11/27/2022 7:48 AM Note Text: 110/820Chaperone offered: Patient declines. Patricia Heart is a 27 year old female who presents for problem visit Pap only HPI: Pap today due to being on menses with annual visit so Pap was not able to be obtained. EXAM: BP 110/80 LMP 10/29/2022 GENERAL: pleasant, female in no apparent distress CHEST: Normal inspiratory effort PELVIC: external genitalia normal, normal [place]tholin's glands, urethra, [place]'s glands, no vulvar lesions, no cervical lesions, good vaginal support, physiologic discharge present, normal appearing perineal body and perianal region NEURO: alert and oriented x3,exam grossly non-focal ASSESSMENT/PLAN: 1. Encounter for screening for malignant neoplasm of cervix - ICD9: V76.2, ICD10: Z12.4 - PAP TEST Will notify of results. Follow- up as needed and at next scheduled annual. María Peterson APRN.CNP [facility] 11-07-2022 Miscellaneous Notes Addended by: FAITH EUBANKS on: 11/07/2022 03:02 PM Modules accepted: Orders documented in this encounter [facility] 10-30-2022 Note HNO ID: [id number] Author: María Peterson APRN.CNP Service: ? Author Type: Nurse Practitioner Type: Progress Notes Filed: 10/30/2022 7:39 AM Note Text: Patricia is a 26 year old who presents for an annual gynecologic exam with complaints, dyspareunia x 6 months . Pain is with insertion at vaginal opening only. Water based lubricant is ineffective. Does know that she has a prolapsed bladder. Menses: cycles every 28-30 days and 7 days of flow. Contraception: vasectomy HPV vaccine: Yes Last Pap: 10/06/2019 normal HPV: N/A History of abnormal pap: No Last mammogram: never Sexually active: Yes History of STDS: None Patient concerns for STD exposure: No. Time with current partner: 9 years Pain with intercourse: Yes, see above Postcoital bleeding: No OB History T2 L3 SAB0 IAB0 Ectopic0 Multiple0 Live Births3 Invisible Braces Orthodontist History LMP: 10/29/2022 (Approximate), Unknown Age at Menarche: Age at First : Age at Menopause: Invisible Braces Orthodontist History Comments: Sexual Activity: Yes; Male Contraception: Vasectomy PAST MEDICAL HISTORY Diagnosis Date Anemia Anxiety epression/anxiety Convulsions (HCC) 10/16/2021 Epilepsy ([facility]) 2022 tachycardia, HTN. nausea, loses consciousness 20% of the time depression Prematurity 5 weeks early Twin PAST SURGICAL HISTORY Procedure Laterality Date TONSILLECTOMY HX 08/2020 TOOTH EXTRACTION FAMILY HISTORY Problem Relation Age of Onset Asthma Father Hypertension Father other (pulmonary embolism) Mother 30 other (endometriosis) Mother No Known Problems Brother Asthma Sister other (PCOS) Sister No Known Problems Maternal Grandfather Breast Cancer Maternal Grandmother Seizures Paternal Grandfather No Known Problems Paternal Grandmother No Known Problems Daughter No Known Problems Son Seizures Paternal Aunt SOCIAL HISTORY Social History Tobacco Use Smoking status: Never Passive exposure: Never Smokeless tobacco: Never Vaping Use Vaping Use: Former Quit date: 07/18/2019 Substance Use Topics Alcohol use: Not Currently Comment: occ Drug use: No REVIEW OF SYSTEMS Abdomen: No abdominal pain, nausea, vomiting, diarrhea, or constipation. No bloating, early satiety, indigestion, or increased flatulence. Bladder: No dysuria, gross hematuria, urinary frequency, urinary urgency. + for stress incontinence with laugh and sneeze. Does Kegel exercises 3-4 times a day. Breast: No breast lumps, nipple d/c, overlying skin changes, redness or skin retraction. Allergies and current medication updated:Yes EXAM: BP 120/60 Ht 5' 4 (1.63m) Wt 227 lb (103.0kg) LMP 10/29/2022 BMI 38.95 kg/(m2). GENERAL: pleasant, female in no apparent distress HEENT: Normocephalic, atraumatic, mucus membranes moist, and no lesions NECK: Supple, full range of motion, no adenopathy, and thyroid normal DERMATOLOGY: Normal, without lesions, non-icteric, and non-hirsute BREAST: soft, non-tender, symmetric, no dominant mass, normal nipple-areolar complex, no lymphadenopathy, and no nipple discharge CHEST: Normal inspiratory effort ABDOMEN: soft, non-tender, and no masses PELVIC: external genitalia normal, normal Bartholin's glands, urethra, [place]'s glands, no vulvar lesions, no cervical lesions, normal appearing perineal body and perianal region. Large amount menstrual blood in vaginal vault. Pain with palpation of bilateral levator muscles. Cystocele 1st degree. BIMANUAL: uterus normal size, shape and consistency, no adnexal masses, and non-tender RECTOVAGINAL: deferred. NEURO: alert and oriented x3,exam grossly non-focal EXTREMITIES: normal ASSESSMENT/PLAN: 1) Health maintenance: Pap/HPV not done due to menses. Will reschedule. Nutrition, exercise and routine health maintenance exams reviewed. Calcium/Vitamin D supplementation information provided. HPV vaccine: completed series 2. Superficial dyspareunia - ICD9: 625.0, ICD10: N94.11 - Pain with palpation of levator muscles bilaterally - Can try silicone based lubricant - CONSULT TO PHYSICAL THERAPY 3. Stress incontinence - ICD9: [id number], ICD10: N39.3 - doing Kegel exercises. Given written information. - CONSULT TO PHYSICAL THERAPY 4. Cystocele, midline - ICD9: 618.01, ICD10: N81.11 - 1st degree - CONSULT TO PHYSICAL THERAPY 5) Contraception: vasectomy. Contraceptive options reviewed and information provided. 6) STD screening: Declined STD check. 7) Follow up one year or sooner as needed María Peterson APRN.DANG [facility] 10-30-2022 Instructions María Peterson APRN.DANG - 10/30/2022 7:30 AM EDT Silicone based lubricant Pelvic floor therapy Reschedule Pap only How To Perform Pelvic Floor (Kegel) Exercises These exercises help to strengthen the pelvic floor muscles and can help improve bladder control for women. 1. You should have been instructed in the office how to contract these muscles. At home, you can insert two fingers in the vagina and feel the contraction of these muscles as you squeeze. We call these muscles the pelvic floor because they help support the pelvic organs, especially during coughing and sneezing. Squeezing the pelvic floor while standing feels like you are lifting the area around the vagina, and will interrupt the stream of urine while voiding. Once you are certain which muscles to use, do not exercise while urinating. Make sure you are not bearing down, squeezing your buttocks, or straining abdominally: these are not the muscles to be exercised. You may wish to place hands on your buttock muscles to keep these muscles relaxed while performing the exercises. 2. Squeeze these muscles as hard as you can for a slow count of five, eventually working up to a slow count of ten. Rest for 15 seconds, and then start another contraction. At first. these muscles may feel sore, just as other muscles may feel sore after exercise. 3. You should perform 50 squeezes every day: make sure every squeeze count by trista as hard as you can! Many women try to do these exercises in sets of five or ten at a time. Remind yourself to do these exercises by starting them every time you are waiting at a red light, watching a television commercial, or on hold on the telephone. If you are having trouble concentrating, you may want to set aside a special time to perform sets of pelvic floor exercises. 4. In addition to the long, hard contractions you are doing try doing some quick flicks of these muscles throughout the day. 5. You should be seen in the office after starting these exercises to make sure you are performing the contraction correctly: you may have never known how to contract these muscles before starting pelvic floor exercises, and many patients mistakenly exercise the wrong muscles. If you still feel frustrated about which muscles to use ask us for help. There are physical therapy specialists who work with pelvic floor muscles. 6. Work hard! As with any exercise program, improvement often is related to how faithfully you adhere to your exercise program. Pelvic floor exercises do not have the side effects and expense associated with other treatments for urinary incontinence, and have been known to help with severe stress incontinence. It may take several months to see the full effect of your exercise program: if you are easily discouraged, see your doctor or doctor at regular visits to assess what progress you are making. Techniques to avoid urinary accidents: Empty your bladder regularly and prior to physical activity. Avoid activity that causes leakage, if possible. Avoid or moderate the intake of alcohol and caffeine products. Try to restrict fluids prior to planned activities. Wear appropriate protection. Prevent chronic coughing which can cause a loss of urinary control. Ways to prevent chronic coughing include treating asthma, restricting smoking, and removing allergy-causing agents from your environment. documented in this encounter [facility] 10-30-2022 History of Presen t illness Narrative Patricia is a 26 year old who presents for an annual gynecologic exam with complaints, dyspareunia x 6 months . Pain is with insertion at vaginal opening only. Water based lubricant is ineffective. Does know that she has a prolapsed bladder. Menses: cycles every 28-30 days and 7 days of flow. Contraception: vasectomy HPV vaccine: Yes Last Pap: 10/06/2019 normal HPV: N/A History of abnormal pap: No Last mammogram: never Sexually active: Yes History of STDS: None Patient concerns for STD exposure: No. Time with current partner: 9 years Pain with intercourse: Yes, see above Postcoital bleeding: No OB History T2 L3 SAB0 IAB0 Ectopic0 Multiple0 Live Births3 Invisible Braces Orthodontist History LMP: 10/29/2022 (Approximate), Unknown Age at Menarche: Age at First : Age at Menopause: Invisible Braces Orthodontist History Comments: Sexual Activity: Yes; Male Contraception: Vasectomy PAST MEDICAL HISTORY Diagnosis Date Anemia Anxiety epression/anxiety Convulsions (HCC) 10/16/2021 Epilepsy ([facility]) 2022 tachycardia, HTN. nausea, loses consciousness 20% of the time depression Prematurity 5 weeks early Twin PAST SURGICAL HISTORY Procedure Laterality Date TONSILLECTOMY HX 08/2020 TOOTH EXTRACTION FAMILY HISTORY Problem Relation Age of Onset Asthma Father Hypertension Father other (pulmonary embolism) Mother 30 other (endometriosis) Mother No Known Problems Brother Asthma Sister other (PCOS) Sister No Known Problems Maternal Grandfather Breast Cancer Maternal Grandmother Seizures Paternal Grandfather No Known Problems Paternal Grandmother No Known Problems Daughter No Known Problems Son Seizures Paternal Aunt SOCIAL HISTORY Social History Tobacco Use Smoking status: Never Passive exposure: Never Smokeless tobacco: Never Vaping Use Vaping Use: Former Quit date: 07/18/2019 Substance Use Topics Alcohol use: Not Currently Comment: occ Drug use: No REVIEW OF SYSTEMS Abdomen: No abdominal pain, nausea, vomiting, diarrhea, or constipation. No bloating, early satiety, indigestion, or increased flatulence. Bladder: No dysuria, gross hematuria, urinary frequency, urinary urgency. + for stress incontinence with laugh and sneeze. Does Kegel exercises 3-4 times a day. Breast: No breast lumps, nipple d/c, overlying skin changes, redness or skin retraction. Allergies and current medication updated:Yes EXAM: BP 120/60 Ht 5' 4 (1.63m) Wt 227 lb (103.0kg) LMP 10/29/2022 BMI 38.95 kg/(m^2). GENERAL: pleasant, female in no apparent distress HEENT: Normocephalic, atraumatic, mucus membranes moist, and no lesions NECK: Supple, full range of motion, no adenopathy, and thyroid normal DERMATOLOGY: Normal, without lesions, non-icteric, and non-hirsute BREAST: soft, non-tender, symmetric, no dominant mass, normal nipple-areolar complex, no lymphadenopathy, and no nipple discharge CHEST: Normal inspiratory effort ABDOMEN: soft, non-tender, and no masses PELVIC: external genitalia normal, normal Bartholin's glands, urethra, [place]'s glands, no vulvar lesions, no cervical lesions, normal appearing perineal body and perianal region. Large amount menstrual blood in vaginal vault. Pain with palpation of bilateral levator muscles. Cystocele 1st degree. BIMANUAL: uterus normal size, shape and consistency, no adnexal masses, and non-tender RECTOVAGINAL: deferred. NEURO: alert and oriented x3,exam grossly non-focal EXTREMITIES: normal ASSESSMENT/PLAN: 1) Health maintenance: Pap/HPV not done due to menses. Will reschedule. Nutrition, exercise and routine health maintenance exams reviewed. Calcium/Vitamin D supplementation information provided. HPV vaccine: completed series 2. Superficial dyspareunia - ICD9: 625.0, ICD10: N94.11 - Pain with palpation of levator muscles bilaterally - Can try silicone based lubricant - CONSULT TO PHYSICAL THERAPY 3. Stress incontinence - ICD9: [id number], ICD10: N39.3 - doing Kegel exercises. Given written information. - CONSULT TO PHYSICAL THERAPY 4. Cystocele, midline - ICD9: 618.01, ICD10: N81.11 - 1st degree - CONSULT TO PHYSICAL THERAPY 5) Contraception: vasectomy. Contraceptive options reviewed and information provided. 6) STD screening: Declined STD check. 7) Follow up one year or sooner as needed María Peterson APRN.DOCTOR OF NAPRAPATHY documented in this encounter [facility] 10-09-2022 Miscellaneous Notes Forms completed and [place]ed [place] [place] [facility] [place] Lissette Balderas RN Possible duplicate received. Forwarded to nurse Additional forms could be duplicate, emailed nurse-Casper nguyen Form received: From (agency / facility / parent): Casper Nguyen [employer] line up person (if given): Phone #: [phone] Fax # : [phone] Email: Information requested: Physician statement Patient of Dr. Virk Forwarded to nurse. documented in this encounter [facility] 10-09-2022 Miscellaneous Notes Forms completed and routed to Dr. Virk for signature thru [employer] One copy faxed to Casper nguyen [phone] One copy faxed to [employer] Lissette Balderas RN The following approved medication requests have been transmitted electronically. Requested Prescriptions Signed Prescriptions Disp Refills levETIRAcetam (KEPPRA) 750 mg tablet 360 tablet 1 Sig: Take 2 tablets by mouth twice daily. Roseanna العراقي PA-C Please send Rx LEV to [facility] in [place], [place] Thank you Lissette Balderas RN documented in this encounter [facility] 10-09-2022 Miscellaneous Notes LEV refilled in separate encounter. Roseanna العراقي PA-C Prescription Refill: Requested by: patient Please E-Scribe Caller Contact Number: [facility] [employer] Pharmacy Number and Name: [phone] [facility] #[id number] 30 or 90 day supply requested: 90 Last appointment: 06/08/22 Next Appointment: 11/29/[address] Virk documented in this encounter [facility] 10-05-2022 Miscellaneous Notes Addended by: FAITH EUBANKS on: 10/05/2022 02:08 PM Modules accepted: Orders Seizure Call Last Visit: 09/17/22 to 09/21/22 EMU 06/08/[address] Virk Next Visit: 11/29/2022 Date and Time of seizure: 10/03/22 around 9:30: back to back X 3 Last Seizure: 10/21/22 in EMU Witnessed: Aura: Yes: ringing is ears/face feels like on fire/tingling in mouth Type of seizure: Heart gets high, dizzy, nausea states the same that she had in EMU Duration: 20 to 30 seconds each. 1 to 2 minutes between seizures LOC: No KRYSTAL: No TB: No UI: No Injury: No Rescue Medication used: No ASM: LEV: 1,000 m,000 mg BID Triggers (recent illness, medication missed/changes, sleep issues, substance use): Stress, started back to work this week. Sleep routine disrupted since going back to work, and has not slept well. Postical Symptoms and Duration: Tired/nausea 10 to 15 minutes Back to [place]: 10 to 15 minutes Other concerns: No other concerns Recommendations: Work on adjusting change in schedule with getting back to work. Is keeping track of her seizures and routed to APP2 for review Myriam Schwarz RN 09/17/2022 to 09/21/2022 EMU Patricia presented to the [facility] EMU on 09/17/2022 for diagnosis. Medications were discontinued during the admission. Patient noted to have 9 typical events with right face burning, heart racing, tingling in tongue, felt poorly afterwards and tired. Objectively HR elevated upto 170's. EEG: Bilateral L>R centroparietal rhythmic theta at the onset of symptoms, however no clear evolution patterns are noted. This finding is however consistent in all seizure auras. Interictal findings: SPK gen. 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 Please see separate video-EEG report for details. Prior to discharge, antiepileptic medications were changed to the following regimen: Keppra was increased to 750 mg twice daily for 1 week then 1000 mg twice daily. She will continue to follow up with Dr. Virk regarding her Epilpesy, activity precautions were reiterated. ======== 11/29/[address] Virk ======== LEV: 1,000 m,000 mg BID ======== Left VM to call Dr. Virk's office Myriam Schwarz documented in this encounter [facility] 09-25-2022 Note HNO ID: [id number] Author: Claudia Chilel RN Service: ? Author Type: Registered Nurse Type: Progress Notes Filed: 09/25/2022 12:21 PM Note Text: TRANSITIONAL CARE MANAGEMENT (TCM) COMMUNITY MONITORING PROGRAM Provider Action/FYI: Outreach attempt #2 Unable to reach patient. Left message. Pt has no upcoming appts scheduled. SUMMARY: Discharge Network Status: In-Network Discharge Pt discharged from [facility] on 09/21/22. Admitted for: Seizures Contact made with patient: No - 2nd unsuccessful attempt - end outreach and close encounter Outreach ended Claudia Chilel RN [facility] 09-25-2022 History of Presen t illness Narrative TRANSITIONAL CARE MANAGEMENT (TCM) COMMUNITY MONITORING PROGRAM Provider Action/FYI: Outreach attempt #2 Unable to reach patient. Left message. Pt has no upcoming appts scheduled. SUMMARY: Discharge Network Status: In-Network Discharge Pt discharged from [facility] on 09/21/22. Admitted for: Seizures Contact made with patient: No - 2nd unsuccessful attempt - end outreach and close encounter Outreach ended Claudia Chilel RN TCM Home Visit Referral Source of Stratification: [facility] Admission Status: Discharged Readmission Risk Score: 5 EDUARDO Score: 1 Patient meets program referral criteria: No Patient does not qualify for High Risk TCM Home Visit program due to: Discharged home, does not meet program criteria Claudia Chilel RN September 24, 2022 12:52 PM TRANSITIONAL CARE MANAGEMENT (TCM) COMMUNITY MONITORING PROGRAM Provider Action/FYI: Outreach attempt #1 Unable to reach patient. Left message. Will try again later Pt has no future appts scheduled. SUMMARY: Discharge Network Status: In-Network Discharge Pt discharged from [facility] on 09/21/22. Admitted for: Seizures HOSPITAL COURSE: Patricia Heart is a 26 year old female who presented with recurrent episodes concerning for partial seizures and a single GTC on 10/07/21 admitted for diagnostic VEEG. She is currently on LEV 500 mg BID but episodes are still occurring x1-2 per weeks, mostly out of sleep, and consist of R sided head pain, burning sensation in face and arms, increased heart rate, static noise, tingling in tongue, and metallic taste lasting 30-45 seconds. Patricia presented to the [facility] EMU on 09/17/2022 for diagnosis. Medications were discontinued during the admission. Patient noted to have 9 typical events with right face burning, heart racing, tingling in tongue, felt poorly afterwards and tired. Objectively HR elevated upto 170's. EEG: Bilateral L>R centroparietal rhythmic theta at the onset of symptoms, however no clear evolution patterns are noted. This finding is however consistent in all seizure auras. Interictal findings: SPK gen. 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 Please see separate video-EEG report for details. Prior to discharge, antiepileptic medications were changed to the following regimen: Keppra was increased to 750 mg twice daily for 1 week then 1000 mg twice daily. She will continue to follow up with Dr. Virk regarding her Epilpesy, activity precautions were reiterated. Transitions of Care Critical Issues: SPECIALIST FOLLOW-UP: Dr. Virk [place] MEDICATION CHANGES: LEV increased LABS AND PROCEDURES PENDING AT DISCHARGE: Finalized Video EEG Report Contact made with patient: No - next outreach attempt will be on next business day Outreach ended Claudia Chilel RN documented in this encounter [facility] 09-24-2022 Note HNO ID: [id number] Author: Claudia Chilel RN Service: ? Author Type: Registered Nurse Type: Progress Notes Filed: 09/25/2022 12:21 PM Note Text: TCM Home Visit Referral Source of Stratification: [facility] Admission Status: Discharged Readmission Risk Score: 5 EDUARDO Score: 1 Patient meets program referral criteria: No Patient does not qualify for High Risk TCM Home Visit program due to: Discharged home, does not meet program criteria Claudia Chilel RN September 24, 2022 12:52 PM TRANSITIONAL CARE MANAGEMENT (TCM) COMMUNITY MONITORING PROGRAM Provider Action/FYI: Outreach attempt #1 Unable to reach patient. Left message. Will try again later Pt has no future appts scheduled. SUMMARY: Discharge Network Status: In-Network Discharge Pt discharged from [facility] on 09/21/22. Admitted for: Seizures HOSPITAL COURSE: Patricia Heart is a 26 year old female who presented with recurrent episodes concerning for partial seizures and a single GTC on 10/07/21 admitted for diagnostic VEEG. She is currently on LEV 500 mg BID but episodes are still occurring x1-2 per weeks, mostly out of sleep, and consist of R sided head pain, burning sensation in face and arms, increased heart rate, static noise, tingling in tongue, and metallic taste lasting 30-45 seconds. Patricia presented to the [facility] EMU on 09/17/2022 for diagnosis. Medications were discontinued during the admission. Patient noted to have 9 typical events with right face burning, heart racing, tingling in tongue, felt poorly afterwards and tired. Objectively HR elevated upto 170's. EEG: Bilateral L>R centroparietal rhythmic theta at the onset of symptoms, however no clear evolution patterns are noted. This finding is however consistent in all seizure auras. Interictal findings: SPK gen. 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 Please see separate video-EEG report for details. Prior to discharge, antiepileptic medications were changed to the following regimen: Keppra was increased to 750 mg twice daily for 1 week then 1000 mg twice daily. She will continue to follow up with Dr. Virk regarding her Epilpesy, activity precautions were reiterated. Transitions of Care Critical Issues: SPECIALIST FOLLOW-UP: Dr. Virk [place] MEDICATION CHANGES: LEV increased LABS AND PROCEDURES PENDING AT DISCHARGE: Finalized Video EEG Report Contact made with patient: No - next outreach attempt will be on next business day Outreach ended Claudia Chilel RN [facility] 09-24-2022 Note Patient Outreach ([facility] PATRICIA HEART ([id number]) 1995 F Date Time Provider Department 09/24/22 CLAUDIA CHILEL [facility] During your visit today, we recorded the following information about you: Claudia Chilel RN 09/25/2022 12:21 PM Signed TCM Home Visit Referral Source of Stratification: TCM [facility] Admission Status: Discharged Readmission Risk Score: 5 EDUARDO Score: 1 Patient meets program referral criteria: No Patient does not qualify for High Risk TCM Home Visit program due to: Discharged home, does not meet program criteria Claudia Chilel RN September 24, 2022 12:52 PM TRANSITIONAL CARE MANAGEMENT (TCM) COMMUNITY MONITORING PROGRAM Provider Action/FYI: Outreach attempt #1 Unable to reach patient. Left message. Will try again later Pt has no future appts scheduled. SUMMARY: Discharge Network Status: In-Network Discharge Pt discharged from [facility] on 09/21/22. Admitted for: Seizures HOSPITAL COURSE: Patricia Heart is a 26 year old female who presented with recurrent episodes concerning for partial seizures and a single GTC on 10/07/21 admitted for diagnostic VEEG. She is currently on LEV 500 mg BID but episodes are still occurring x1-2 per weeks, mostly out of sleep, and consist of R sided head pain, burning sensation in face and arms, increased heart rate, static noise, tingling in tongue, and metallic taste lasting 30-45 seconds. Patricia presented to the [facility] EMU on 09/17/2022 for diagnosis. Medications were discontinued during the admission. Patient noted to have 9 typical events with right face burning, heart racing, tingling in tongue, felt poorly afterwards and tired. Objectively HR elevated upto 170's. EEG: Bilateral L>R centroparietal rhythmic theta at the onset of symptoms, however no clear evolution patterns are noted. This finding is however consistent in all seizure auras. Interictal findings: SPK gen. 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 Please see separate video-EEG report for details. Prior to discharge, antiepileptic medications were changed to the following regimen: Keppra was increased to 750 mg twice daily for 1 week then 1000 mg twice daily. She will continue to follow up with Dr. Virk regarding her Epilpesy, activity precautions were reiterated. Transitions of Care Critical Issues: SPECIALIST FOLLOW-UP: Dr. Virk [place] MEDICATION CHANGES: LEV increased LABS AND PROCEDURES PENDING AT DISCHARGE: Finalized Video EEG Report Contact made with patient: No - next outreach attempt will be on next day Outreach ended ANAHI Ayoub Denille, RN 09/25/2022 12:21 PM Signed TRANSITIONAL CARE MANAGEMENT (TCM) COMMUNITY MONITORING PROGRAM Provider Action/FYI: Outreach attempt #2 Unable to reach patient. Left message. Pt has no upcoming appts scheduled. SUMMARY: Discharge Network Status: In-Network Discharge Pt discharged from [facility] on 09/21/22. Admitted for: Seizures Contact made with patient: No - 2nd unsuccessful attempt - end outreach and close encounter Outreach ended Claudia Chilel RN Allergies As of Date: 09/24/2022 Noted Allergy Reaction BUSPAR (BUSPIRONE) 08/20/2019 14 - Other: See Comments Comments: Dizziness/headache LEXAPRO (ESCITALOPRAM) 08/20/2019 1 - Mental Status Change Comments: Hallucination/see stuff Date Reviewed: 09/20/2022 Reviewed by: Naman Cavazos RN - Fully Assessed Reason for Visit: Transition Of Care [4074] Cmt: TCM Initial [facility] Discharge 09/21/22 Prescriptions as of 09/25/2022 - levETIRAcetam (KEPPRA) 750 mg tablet Take 1 tablet by mouth twice daily. Then switch to the 1000 mg tablet and increase to 1000 mg twice daily. - levETIRAcetam (KEPPRA) 1,000 mg tablet Take 1 tablet by mouth twice daily. - PARoxetine (PAXIL) 40 mg tablet TAKE 1 TABLET BY MOUTH EVERY DAY Problem List As Of Date 09/24/2022 Noted Resolved LUBNA (generalized anxiety disorder) [F41.1] 05/13/2019 Obesity in [O99.210] 09/17/2019 06/17/2020 History of seizures as a child [Z86.69] 09/17/2019 History of depression [Z87.59, Z86.5*09/17/2019 History of depression [Z86.59] 09/17/2019 Patient request for diagnostic testing [Z01.89] 09/17/2019 Elevated blood pressure affecting , an*10/01/2019 06/17/2020 Elevated glucose [R73.09] 10/02/2019 06/17/2020 Short interval between pregnancies affecting pr*12/01/2020 Supervision of other high risk pregnancies, sec*04/04/2021 Anemia complicating , third trimester *06/13/2021 Convulsions (HCC) [R56.9] 10/16/2021 Seizures (HCC) [R56.9] 09/17/2022 Obesity, Class II, BMI 35-39.9 [E66.9] 09/21/2022 Nonintractable epilepsy without status epilepti*09/21/2022 Enc (more content not included)... [facility] 09-21-2022 Note HNO ID: [id number] Author: Gina Monterroso RN Service: Care Management Author Type: Registered Nurse Type: Care Mgt Progress Note Filed: 09/21/2022 7:47 AM Note Text: CARE MANAGEMENT DISCHARGE NOTE SERVICE DATE: September 21, 2022 SERVICE TIME: 7:47 AM Admission Date: 09/17/2022 LOS: 0 days Discharge Arrangement Discharge Arrangement: Home with Self Care Services Arranged Provider Name: NA Phone: NA Caregiver Assessment Caregiver is ready, willing and able to meet the patient's needs as recommended by the inter-professional team: No Caregiver needed Transportation Arrangements Transportation Arrangements: Car Date of Trip: 09/21/22 Destination: Home Handoff Communication: Handoff to: Primary Care Physician Primary Care Physician Name/Phone: Dr Neumann [phone] Additional Information: Patient is discharging home with self care. Spouse to transport. SIGNATURE: Gina Monterroso RN PATIENT NAME: Patricia Heart DATE: September 21, 2022 TIME: 7:47 AM CONTACT #: [phone] [facility] 09-20-2022 Note HNO ID: [id number] Author: Faith Eubanks APRN.DANG Service: Neurology Adult Epilepsy Author Type: Nurse Practitioner Type: Progress Notes Filed: 09/20/2022 12:13 PM Note Text: Attestation signed by Israel Gordon MD at 09/20/2022 8:35 PM EPILEPSY CENTER ATTENDING NOTE [facility] Epilepsy Monitoring Unit Progress Note Date of Service: 09/20/2022 [facility] STAFF PHYSICIAN NOTE OF PERSONAL INVOLVEMENT IN CARE Patient was interviewed and examined by me on separate attending rounds this morning with nurse practitioner, Faith Eubanks CNP. I have reviewed the history, exam, diagnosis, and plan obtained and documented by the nurse practitioner as above. I performed my own [id number] assessment and personally participated in the clifton components. The following comments revise or confirm these. I have discussed the case and management of the patient's care with the care team. Clinical overnight update: No episodes. No complaints. Pertinent exam: Normal neurological examination Data reviewed: Continuous video EEG recording was personally reviewed by myself and the results of the evaluation to date are summarized below. Interictal findings: SPK gen Ictal findings: Sz 1A-9A: Right face burning, heart racing, tingling in tongue, felt poorly afterwards and tired. Objectively HR elevated upto 170's. EEG: Bilateral L>R centroparietal rhythmic theta at the onset of symptoms, however no clear evolution patterns are noted. This finding is however consistent in all seizure auras best seen in 4A, 5A IMPRESSION: Ms. Patricia Heart is a 26 year old Right handed woman with seizure-like episodes since Sep 2021 described as convulsions in the setting of sleep deprivation( taking care of her infant child) with a prodrome of ringing in ears, hands tingling, tachycardia, impending doom. Starting in August 2022, she reports slightly different semiology consisting of burning sensation on the right side of face, tachycardia, metallic taste. Currently on Keppra 500 mg BID and tolerating well. Admitted for diagnostic evaluation. So far interictal EEG shows generalized spikes . Multiple Typical Auras ( 1A-9A) with stereotypes semiology of Right face burning sensation, tachycardia, metallic taste, panic/anxiety sensation with EEG showing non-sustained theta in the Left>right centroparietal region. While interictal discharges raises suspicion for generalized epilepsy(or rapidly synchronizing focal epilepsy), her symptoms are more suggestive of focal seizures with temporo-insular semiology. Generalized epilepsy with focal features( Gastaut type with autonomic findings?) vs rapidly synchronizing focal epilepsy are considerations. Primary epileptologist: Dr. Virk Admit Date: 09/17/2022 Seizure types: Type A: autonomic-> panic-> convulsions Type B: Face somatosensory ( burning)-> Gustatory aura-> autonomic aura. AEDs Home LEV 500 BID Here none Prior PLAN: Continuous video-EEG monitoring continues Load with Keppra 1000 mg IV, increase maintenance dose to 750 mg BID, Will increase to 1000 mg BID in 1 week. Admission AED levels pending Activation procedures: hyperventilation, photic stimulation Seizure precautions Rescue plan in place: 2mg of lorazepam (Ativan) IV as needed for prolonged motor epileptic seizure greater than 3 minutes and or 3rd motor epileptic seizure within 8 hours. Discharge Saturday Follow-up after discharge with Dr. Virk The treatment plan was discussed in detail with the patient. Time for questions was given and answers were discussed. The patient agreed with the treatment plan. Israel Gordon MD Associate Staff, Epilepsy [facility] 09/20/2022 Office phone: [phone] Pager: [phone] For urgent EEG review, call the Epilepsy Continuous Monitoring Unit (ECMU) at [facility] [phone] or [phone]. For overnight issues, 7pm [place] 7am, [place] [phone]. For in house night coverage of emergencies, call NPCS pager [phone]. NEUROLOGY EPILEPSY MONITORING UNIT (EMU) PROGRESS NOTE NIGHT AND WEEKEND COVERAGE: After 5 pm and over the weekends, please page [phone] to contact the epilepsy provider production scheduler Subjective No complaints. 3 typical episode this morning HOME ANTI EPILEPTIC DRUGS: LEV 500/500 ANTI EPILEPTIC DRUGS HERE: Objective 09/20/22 0050 09/20/22 0500 09/20/22 1001 09/20/22 1002 BP: 106/65 120/87 122/76 Pulse: 83 97 75 Resp: 20 17 14 Temp: 36.5 ?C (97.7 ?F) 36.7 ?C (98.1 ?F) 36.5 ?C (97.7 ? (more content not included)... [facility] 09-19-2022 Note HNO ID: [id number] Author: Israel Gordon MD Service: Neurology Adult Epilepsy Author Type: Physician Type: Progress Notes Filed: 09/19/2022 4:39 PM Note Text: EPILEPSY CENTER ATTENDING NOTE [facility] Epilepsy Monitoring Unit Progress Note Date of Service: 09/19/2022 [facility] STAFF PHYSICIAN NOTE OF PERSONAL INVOLVEMENT IN CARE Patient was interviewed and examined by me on separate attending rounds this morning with nurse practitioner, Faith Eubanks CNP. I have reviewed the history, exam, diagnosis, and plan obtained and documented by the nurse practitioner as above. I performed my own mkrp-[id number] assessment and personally participated in the clifton components. The following comments revise or confirm these. I have discussed the case and management of the patient's care with the care team. Clinical overnight update: No episodes. No complaints. Pertinent exam: Normal neurological examination Data reviewed: Continuous video EEG recording was personally reviewed by myself and the results of the evaluation to date are summarized below. Interictal findings: SPK gen max bifrontal. Ictal findings: Sz 1A-5A: Right face burning, heart racing, tingling in tongue, felt poorly afterwards and tired. Objectively HR elevated upto 170's. EEG: Bilateral L>R centroparietal rhythmic theta at the onset of symptoms, however no clear evolution patterns are noted. This finding is however consistent in all seizure auras best seen in 4A, 5A IMPRESSION: Ms. Patricia Heart is a 26 year old Right handed woman with seizure-like episodes since Sep 2021 described as convulsions in the setting of sleep deprivation( taking care of her child) with a prodrome of ringing in ears, hands tingling, tachycardia, impending doom. Starting in August 2022, she reports slightly different semiology consisting of burning sensation on the right side of face, tachycardia, metallic taste. Currently on Keppra 500 mg BID and tolerating well. Admitted for diagnostic evaluation. So far one single generalized spike noted. While a single interictal discharge raises suspicion for generalized epilepsy( or rapidly synchronizing focal epilepsy), her symptoms are more suggestive of focal seizures with temporo-insular semiology. So far this evaluation shows multiple Typical Auras ( 1A-5A) with stereotypes semiology of Right face burning sensation, tachycardia, metallic taste, panic/anxiety sensation with EEG showing non-sustained theta in the Left>right centroparietal region. Primary epileptologist: Dr. Virk Admit Date: 09/17/2022 Seizure types: Type A: autonomic-> panic-> convulsions Type B: Face somatosensory ( burning)-> Gustatory aura-> autonomic aura. AEDs Home LEV 500 BID Here none Prior PLAN: Continuous video-EEG monitoring continues Holding home anti-epileptic medications Admission AED levels pending Activation procedures: hyperventilation, photic stimulation Seizure precautions Rescue plan in place: 2mg of lorazepam (Ativan) IV as needed for prolonged motor epileptic seizure greater than 3 minutes and or 3rd motor epileptic seizure within 8 hours. Discharge planning pending capturing episodes of concern. Will increase Keppra to 750 mg BID at discharge and then to 1000 mg BID in one week. Follow-up after discharge with Dr. Virk The treatment plan was discussed in detail with the patient. Time for questions was given and answers were discussed. The patient agreed with the treatment plan. Israel Gordon MD Associate Staff, Epilepsy [facility] 09/19/2022 Office phone: [phone] Pager: [phone] For urgent EEG review, call the Epilepsy Continuous Monitoring Unit (ECMU) at [facility] [phone] or [phone]. For overnight issues, 7pm [place] 7am, [place] [phone]. For in house night coverage of emergencies, call [facility] pager [phone]. [facility] 09-19-2022 Note HNO ID: [id number] Author: Gina Monterroso RN Service: Care Management Author Type: Registered Nurse Type: Care Mgt Progress Note Filed: 09/19/2022 7:53 AM Note Text: CARE MANAGEMENT PROGRESS NOTE SERVICE DATE: 09/19/2022 SERVICE TIME: 7:53 AM LOS: 0 days Post-Acute Discharge Planning Patient Goal(s): General wellness, Be able to go home [place] of Choice Explained: Discharge Planning Participant(s): Patient Patient/Family Comments: Anticipated # of Days Until Discharge: Transport at Discharge: Transportation Arrangements: Car Destination: Home Needs Prior to Discharge: Needs Prior to Discharge: To Be Determined, Discharge Prescriptions Post-Acute Discharge Plan: 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 Spouse to transport at discharge. Planned admission. No CM needs at this time. Will follow for transitional care planning. SIGNATURE: Gina Monterroso RN PATIENT NAME: Patricia Heart DATE: September 19, 2022 TIME: 7:53 AM PAGER/CONTACT #: [phone] [facility] 09-18-2022 Note HNO ID: [id number] Author: Faith Eubanks APRN.CNP Service: Neurology Adult Epilepsy Author Type: Nurse Practitioner Type: Progress Notes Filed: 09/18/2022 11:22 AM Note Text: Attestation signed by Israel Gordon MD at 09/18/2022 11:50 AM EPILEPSY CENTER ATTENDING NOTE [facility] Epilepsy Monitoring Unit Progress Note Date of Service: September 18, 2022 [facility] STAFF PHYSICIAN NOTE OF PERSONAL INVOLVEMENT IN CARE Patient was interviewed and examined by me on separate attending rounds this morning with nurse practitioner, Faith Eubanks CNP. I have reviewed the history, exam, diagnosis, and plan obtained and documented by the nurse practitioner as above. I performed my own [id number] assessment and personally participated in the clifton components. The following comments revise or confirm these. I have discussed the case and management of the patient's care with the care team. Clinical overnight update: No episodes. No complaints. Pertinent exam: Normal neurological examination Data reviewed: Continuous video EEG recording was personally reviewed by myself and the results of the evaluation to date are summarized below. Interictal findings: SPK gen max bifrontal. Ictal findings: Sz 1Avs P: felt face burning, heart racing, tingling in tongue, felt poorly afterwards and tired. Objectively HR elevated upto 170's. No EEG changes IMPRESSION: Ms. Patricia Heart is a 26 year old Right handed woman with seizure-like episodes since Sep 2021 described as convulsions in the setting of sleep deprivation( taking care of her child) with a prodrome of ringing in ears, hands tingling, tachycardia, impending doom. Starting in August 2022, she reports slightly different semiology consisting of burning sensation on the right side of face, tachycardia, metallic taste. Currently on Keppra 500 mg BID and tolerating well. Admitted for diagnostic evaluation. So far one single generalized spike noted. One typical episode with face burning, tachycardia, metallic taste recorded without EEG changes. While a single interictal discharge raises suspicion for generalized epilepsy, her symptoms are more suggestive of focal seizures with temporo-insular semiology. Will continue to record. Primary epileptologist: Dr. Virk Admit Date: 09/17/2022 Seizure types: Type A: autonomic-> panic-> convulsions Type B: Face somatosensory ( burning)-> Gustatory aura-> autonomic aura. AEDs Home LEV 500 BID Here none Prior PLAN: Continuous video-EEG monitoring continues Holding home anti-epileptic medications Admission AED levels pending Activation procedures: hyperventilation, photic stimulation Seizure precautions Rescue plan in place: 2mg of lorazepam (Ativan) IV as needed for prolonged motor epileptic seizure greater than 3 minutes and or 3rd motor epileptic seizure within 8 hours. Discharge planning pending capturing episodes of concern Follow-up after discharge with Dr. Virk The treatment plan was discussed in detail with the patient. Time for questions was given and answers were discussed. The patient agreed with the treatment plan. Israel Gordon MD Associate Staff, Epilepsy [facility] September 18, 2022 Office phone: [phone] Pager: [phone] For urgent EEG review, call the Epilepsy Continuous Monitoring Unit (ECMU) at [facility] [phone] or [phone]. For overnight issues, 7pm [place] 7am, [place] [phone]. For in house night coverage of emergencies, call [facility]S pager [phone]. NEUROLOGY EPILEPSY MONITORING UNIT (EMU) PROGRESS NOTE NIGHT AND WEEKEND COVERAGE: After 5 pm and over the weekends, please page [phone] to contact the epilepsy provider production scheduler Subjective No complaints. 1 typical episode out of sleep at 01:32 am- felt face burning, heart racing, tingling in tongue, felt poorly afterwards and tired HOME ANTI EPILEPTIC DRUGS: LEV 500/500 ANTI EPILEPTIC DRUGS HERE: Objective 09/18/22 0145 09/18/22 0515 09/18/22 0734 09/18/22 1114 BP: 134/94 128/72 126/86 Pulse: 112 76 76 Resp: 19 16 16 Temp: 36.4 ?C (97.6 ?F) 36.4 ?C (97.5 ?F) TempSrc: Oral Temporal SpO2: 98% 98% 98% Weight: Height: EKG, TELEMETRY, EEG, MONITORS AND ALARMS ARE ON: Yes Written order: Remains standing. SEIZURE DETECTION SOFTWARE ON: Yes bike technician has been notified: Yes cement production plant operator has been notified: Yes EXAM: Mental Status: Alert and oriented to pers (more content not included)... [facility] 09-05-2022 Note HNO ID: [id number] Author: Faith Eubanks APRN.DOCTOR [employer] [place]RAPATH[facility] Service: ? Author Type: Nurse Practitioner Type: Progress Notes Filed: 09/05/2022 10:47 AM Note Text: Please route this encounter to the EMU Scheduling Pool ( P EMU ) or PMU Scheduling Pool ( P PMU ) through LOS AND Follow up PHASE 1.0 AND 1.5 ORDER SYNOPSIS Patient: Patricia Heart ([id number]) Best contact number: [phone] Insurance: Payor: SIMONA / Plan: BLUE CARD PPO OOS / Product Type: PPO / ----- Scheduling Team: Please call for adult patients: Veronica Ambrosio ([phone]) Faith Bach ([phone]) Keron Marques ([phone]) Laine Reyna([phone]) Concha Field([phone]) Please call for pediatric patients: Laine Reyna ([phone]) Veronica Ambrosio ([phone]) Faith Bach ([phone]) Keron Marques ([phone]),Concha Field([phone]) ----- 09/05/2022 Admission Type EMU Adult Number of Days requested 5 Location Either [facility] or [facility] Admit Priority Routine PURPOSE 09/05/2022 Patient Being Considered for Epilepsy Surgery? No VEEG recommended to assess seizure burden, address new AND concerning syymptom-sign complex, and/or clarify syndromic epilepsy diagnosis? Yes 09/05/2022 Sphenoidal monitoring No Electrode placement Standard Appointments and Tests EPIL EEG LEAD PLACEMENT EPIL VEEG ADMIT TO EMU/PMU Consultations None Please route this encounter to the EMU Scheduling pool ( P EMU ) or PMU Scheduling pool ( P PMU ) through LOS AND Follow up Scheduling coordinators: For all VNS patients being scheduled for SALOMÓN, please schedule VNS off/on office visits. [facility] 08-09-2022 Miscellaneous Notes OK to refill as ordered Mayela Neumann MD Last office visit: 03/13/22 F/u scheduled: none Monica Lee Ma documented in this encounter [facility] 06-08-2022 Note HNO ID: [id number] Author: Miki Virk MD Service: ? Author Type: Physician Type: Progress Notes Filed: 06/08/2022 11:06 AM Note Text: [facility] Patient Name: Patricia Heart Date of : 1995 ESTABLISHED EPILEPSY CLINIC NOTE 06/08/2022 10:40 AM Reason for Visit: Follow Up Clinical Summary: Ms. Heart is a 26 year old right-handed female seen in [facility]. There is no one accompanying the patient during today's visit. DIAGNOSIS SUMMARY Paroxysmal Events Seizures: 1. Aura (without LOC) -> Motor Seizure (with LOC) Etiology: Unknown Associated Conditions: - Psychiatric (Anxiety disorder) Previous Neurosurgery: None HISTORY OF PRESENT ILLNESS Handedness: right-handed Age of onset: 25 years Seizure History and Evolution 25 year old woman presents with new onset episodes starting on 10/07/21. She had 3-4 episodes referred to as seizures when she was 3-4 years of age. Her mother described them as convulsions when she would cry out and then shake. She was not treated with antiseizure medications. They did not occur with fever. She did not have any episodes until 10/07/21. She was at home and had just put her 3 month old baby to sleep at 1 am. She had a sudden weird feeling. She described it as ringing of her ears, increased heart rate, and a feeling of something bad about to happen. She felt like she was going to . She then felt lightheaded. She woke up her and shortly after she fell into a seizure. She passed out and does not recall what happened. Her described her as shaking with eyes open. It lasted 1.5 minutes and woke up by the time EMS arrived. She felt her left arm was numb and was very nauseous and cold. She did not bite her tongue or lose bladder control. She was taken to [facility]. She had a negative CT of the brain. She had a second event in the ED that was very similar with respect to the aura and convulsion. She was given Ativan and Benadryl. She was diagnosed with panic disorder and discharged. She had the same feeling recur later that night and went to [facility] and was referred to neurology. She did not have any more convulsions. However, she continued to have the aura feeling 3-4 more times, the last one was 10/13. She recalls now that this feeling was occurring over the last few years but was not sure of its nature. She has a paternal grandfather and aunt with epilepsy. There is no history of meningitis or encephalitis or TBI. She has a history of anxiety and panic disorder that is under good control with counseling. She describes her panic episodes as completely different from these recent episodes. Interval Seizure History 10/07/21 - OSH CTH WO - normal 10/16/21 - last visit 11/06/21 - message - I have had 3 auras since starting the medication. 11/14/21 - MRI BRAIN WO - Normal 12/19/21 - Long EEG - Normal 12/20/2021 - LEV = 9.9 Denied any auras or seizures since 11/06/21. She is tolerating Keppra without any irritability, depression or SI. She has new complaints of headache and numbness. On 05/25 right side heavy face and arm numb, could still move, 30-45 seconds; no recurrence, no headache during symptoms. Over the last two weeks she had a headache: Migraine bilateral sides n v photo afternoon 3-4 days throb, prior migraines before glasses tylenol advil not helpful; spots in eyes before, no JAYME or double vision; last eye exam 1 year ago Total # of Current Anti-seizure Medications: Side Effects to Current Anti-seizure Medications: Seizure Frequency at First Visit: 1 per month Longest Seizure-free Interval: Number of seizure types: 1 Hx of generalized tonic-clonic seizures: Yes Tongue bite: No Urine or Bowel Incontinence: No Triggers: unknown Postictal Deficits: Yes (Comment: left arm numbness) Status Epilepticus or clusters: No Postictal Agitation: No Significant Injuries from Seizures: none Seizure-related driving accidents: No Driving: Yes Lives Alone: No Highest Level of Education: Associate's and/or Bachelor's degree CURRENT OUTPATIENT ANTISEIZURE MEDICATIONS (as of the start of the encounter) levETIRAcetam (KEPPRA) 500 mg tablet (Taking) TAKE 1 TABLET BY MOUTH TWICE A DAY Prior Anti-seizure Therapies: Trial Adequacy: Max Daily Dose Achieved: Side Effects: Effectiveness: Comments: None Comorbidities: Minor: Anxiety, Depression Episode Description: SEIZURE TYPE 1: seizure Onset: 10/07/21 Aura: yes Weird feeling Ringing of ears Hands tingling Increased heart rate Impending doom Lightheaded Occurring 3-4 times per month, last one 10/13 Last one Oct 2021 Description: Convulsion Eyes open Nausea Left arm numbness Cold sensation Loss of awareness: Duration: Frequency: Last occurred: yes 1 to 5 minutes October 07 2021 (more content not included)... [facility] 06-08-2022 History of Presen t illness Narrative [facility] Patient Name: Patricia Heart Date of : 1995 ESTABLISHED EPILEPSY CLINIC NOTE 06/08/2022 10:40 AM Reason for Visit: Follow Up Clinical Summary: Ms. Heart is a 26 year old right-handed female seen in [facility]. There is no one accompanying the patient during today's visit. DIAGNOSIS SUMMARY Paroxysmal Events Seizures: 1. Aura (without LOC) -> Motor Seizure (with LOC) Etiology: Unknown Associated Conditions: - Psychiatric (Anxiety disorder) Previous Neurosurgery: None HISTORY OF PRESENT ILLNESS Handedness: right-handed Age of onset: 25 years Seizure History and Evolution 25 year old woman presents with new onset episodes starting on 10/07/21. She had 3-4 episodes referred to as seizures when she was 3-4 years of age. Her mother described them as convulsions when she would cry out and then shake. She was not treated with antiseizure medications. They did not occur with fever. She did not have any episodes until 10/07/21. She was at home and had just put her 3 month old baby to sleep at 1 am. She had a sudden weird feeling. She described it as ringing of her ears, increased heart rate, and a feeling of something bad about to happen. She felt like she was going to . She then felt lightheaded. She woke up her and shortly after she fell into a seizure. She passed out and does not recall what happened. Her described her as shaking with eyes open. It lasted 1.5 minutes and woke up by the time EMS arrived. She felt her left arm was numb and was very nauseous and cold. She did not bite her tongue or lose bladder control. She was taken to [facility]. She had a negative CT of the brain. She had a second event in the ED that was very similar with respect to the aura and convulsion. She was given Ativan and Benadryl. She was diagnosed with panic disorder and discharged. She had the same feeling recur later that night and went to [facility] and was referred to neurology. She did not have any more convulsions. However, she continued to have the aura feeling 3-4 more times, the last one was 10/13. She recalls now that this feeling was occurring over the last few years but was not sure of its nature. She has a paternal grandfather and aunt with epilepsy. There is no history of meningitis or encephalitis or TBI. She has a history of anxiety and panic disorder that is under good control with counseling. She describes her panic episodes as completely different from these recent episodes. Interval Seizure History 10/07/21 - OSH CTH WO - normal 10/16/21 - last visit 11/06/21 - message - I have had 3 auras since starting the medication. 11/14/21 - MRI BRAIN WO - Normal 12/19/21 - Long EEG - Normal 12/20/2021 - LEV = 9.9 Denied any auras or seizures since 11/06/21. She is tolerating Keppra without any irritability, depression or SI. She has new complaints of headache and numbness. On 05/25 right side heavy face and arm numb, could still move, 30-45 seconds; no recurrence, no headache during symptoms. Over the last two weeks she had a headache: Migraine bilateral sides n v photo afternoon 3-4 days throb, prior migraines before glasses tylenol advil not helpful; spots in eyes before, no JAYME or double vision; last eye exam 1 year ago Total # of Current Anti-seizure Medications: Side Effects to Current Anti-seizure Medications: Seizure Frequency at First Visit: 1 per month Longest Seizure-free Interval: Number of seizure types: 1 Hx of generalized tonic-clonic seizures: Yes Tongue bite: No Urine or Bowel Incontinence: No Triggers: unknown Postictal Deficits: Yes (Comment: left arm numbness) Status Epilepticus or clusters: No Postictal Agitation: No Significant Injuries from Seizures: none Seizure-related driving accidents: No Driving: Yes Lives Alone: No Highest Level of Education: Associate's and/or Bachelor's degree CURRENT OUTPATIENT ANTISEIZURE MEDICATIONS (as of the start of the encounter) levETIRAcetam (KEPPRA) 500 mg tablet (Taking) TAKE 1 TABLET BY MOUTH TWICE A DAY Prior Anti-seizure Therapies: Trial Adequacy: Max Daily Dose Achieved: Side Effects: Effectiveness: Comments: None Comorbidities: Minor: Anxiety, Depression Episode Description: SEIZURE TYPE 1: seizure Onset: 10/07/21 Aura: yes Weird feeling Ringing of ears Hands tingling Increased heart rate Impending doom Lightheaded Occurring 3-4 times per month, last one 10/13 Last one Oct 2021 Description: Convulsion Eyes open Nausea Left arm numbness Cold sensation Loss of awareness: Duration: Frequency: Last occurred: yes 1 to 5 minutes October 07 2021 Patient Entered Data: EPILEPSY SCORE 10/06/2021 2:40 AM 08/18/2019 11:35 AM 04/15/2019 5:41 AM First answer obtained - 03/03/2019 9:35 PM PHQ-9 SCORE 6 [Mild Depression] 20 [Severe Depression] 8 [Mild Depression] 11 [Moderate Depression] LUBNA 2 SCORE - - - - LUBNA 7 SCORE - - - - QOLIE-10 SCORE (0=worst; 100=best QoL - higher scores represent better function) - - - - LSSS SCORE (0- no seizures 100- most severe possible seizures) - - - - C-SSRS SCREEN - - - - On average, how many hours of sleep do you get in a 24-hour period? - - - - PROMIS Sleep Disturbance T-SCORE - - - - Have you been diagnosed with Sleep Apnea? - - - - Seizure risk factors: Brain Tumor No ORTHOPEDIC TECH Infections No Developmental Delay No Family history of seizures No Febrile Seizure No Complications Yes Stroke No Traumatic Brain Injury No Previous Epilepsy Evaluations Age & date of onset of seizures/spells: had seizures that stopped at age 5, 10/07 was the first episode in 20 years Frequency: 10/07 first and only in last 20 years Seizure Type A: weird feeling, dizzy, heart racing, LOC, whole-body convulsions Duration: 1-2 minutes Other caregivers: Primary Care Provider: Mayela Neumann MD Current Outpatient Medications Medication Sig PARoxetine (PAXIL) 40 mg tablet Take 1 tablet by mouth once daily. levETIRAcetam (KEPPRA) 500 mg tablet TAKE 1 TABLET BY MOUTH TWICE A DAY ferrous sulfate 325 mg (65 mg iron) tablet TAKE 1 TABLET BY MOUTH EVERY OTHER DAY No current facility-administered medications for this visit. ALLERGIES Allergen Reactions Buspar [Buspirone] Other: See Comments Dizziness/headache Lexapro [Escitalopr* Mental Status Change Hallucination/see stuff PAST MEDICAL HISTORY Diagnosis Date Anemia Anxiety epression/anxiety Convulsions (HCC) 10/16/2021 depression Prematurity 5 weeks early Twin PAST SURGICAL HISTORY Procedure Laterality Date TONSILLECTOMY HX 08/2020 TOOTH EXTRACTION FAMILY HISTORY Problem Relation Age of Onset Asthma Father Hypertension Father other (pulmonary embolism) Mother 30 other (endometriosis) Mother No Known Problems Brother Asthma Sister other (PCOS) Sister No Known Problems Maternal Grandfather Breast Cancer Maternal Grandmother Seizures Paternal Grandfather No Known Problems Paternal Grandmother No Known Problems Daughter No Known Problems Son Seizures Paternal Aunt SOCIAL HISTORY: -Lives in [place], [place] -Patient lives alone? No -Vocation: -Education: Associate's and/or Bachelor's degree -Cigarette, alcohol, substance use: see history -Functional status: independent in activities of daily living -Patient driving? Yes Review of Systems All other systems reviewed and are negative. VITAL SIGNS: BP 127/84 Pulse 64 Resp 16 Ht 162.6 cm (5' 4 ) Wt 90.7 kg (200 lb) LMP 05/14/2022 (Approximate) No BMI 34.33 kg/m IMPRESSION: 25 year old woman presents with recurrent, paroxysmal and stereotypical events since 10/07/21. She has family history of seizures. 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 She had no testing done except for a negative CTH WO in the ED. She has panic disorder that is well controlled for the last year. She is currently . Interval Impression: 26 year old woman presents for follow up. She has recurrent, paroxysmal and stereotypical events since 10/07/21. She has family history of seizures. 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 MRI brain and EEG were unrevealing. She has panic disorder that is well controlled for the last year. Last aura was 10/2021. Last seizure was 10/07/21. Doing well on Keppra 500 mg BID. She has a headache consistent with migraine with aura for the last two weeks only. No chronic history of headache. Last time was before getting prescription glasses, she is due to exam now. She also had one transient episodes of right face and arm numbness. Differential diagnosis includes migraine, ?seizure, and unlikely vascular. The patient's compliance with therapy has been: Excellent PLAN: - Continue LEV 500-500 - If auras or seizures recur, then will do an EMU - If unilateral numbness recurs or new stroke symptoms, go to the ED - Use OTC ibuprofen or acetaminophen as needed for headache; do not use more than 2 days in one week - Go for eye exam - If headaches persist, then should call for prophylactic agent - return in 6 months Data reviewed as above including: electronic medical record, MRI images Education The following issues were discussed with the patient on this visit and written instructions provided as below- Seizure precautions and safety, seizure first aide, when to seek emergency care. Counseling was provided to the patient that missed medications, addition of some new medications, use of alcohol or other substances, and sleep deprivation can lower the seizure threshold. I discussed the risk of depression and psychological comorbidities in patients with epilepsy and when to seek help as well as the black box warning of all antiepileptic medications which can increase risk for suicidality. Women's health issues were addressed this visit- Patient was advised to take folic acid daily. Importance of contraception and potential teratogenicty of antiepileptic medications was discussed. Interaction of her medication with OCP was addressed. Patient was given my clinic contact information. Her had a vasectomy. No plans for more children. It is reasonable for the patient to continue driving based on good compliance with antiseizure medication and current seizure control. Medical Management The possibility of serious and adverse reactions were discussed in detail as well as proper use of medication. I discussed that not taking this medication as directed could worsen seizures and can be dangerous. I discussed the risks, benefits and alternatives of the medical plan with the patient. Questions were answered. The patient agreed with the plan as discussed. FOLLOW-UP: Return in about 6 months (around 12/08/2022). I spent a total of 15 minutes on the date of the service which included: preparing to see the patient [id number] patient care obtaining and/or reviewing separately obtained history completing clinical documentation counseling and educating the patient/family/caregiver communicating results to the patient/family/caregiver Miki iVrk MD cc: Primary Care Physician: Mayela Neumann MD [id number] [facility] [id number] Referring: Patient: Ms. Patricia Heart [id number] [facility] [id number] documented in this encounter [facility] 05-17-2022 Note HNO ID: [id number] Author: Zahida Hurt APRN.[facility] Service: ? Author Type: Nurse Practitioner Type: Progress Notes Filed: 05/17/2022 8:14 AM Note Text: CC: Patient presents with: Pain: Swollen gland in left side of neck x 1 week Did have COVID 2 weeks ago. HPI: Patricia Heart is a 26 year old female who presents to the office with complaint of sore throat for a week. Symptoms are staying the same. Associated symptoms includes swollen glands. Denies fever, nausea, vomiting , and diarrhea. Treatments tried include nothing so far. with no relief of symptoms. Sick contacts: unknown. History of asthma, frequent episodes of bronchitis, chronic bronchitis, bronchiectasis or COPD: No Smoker: No Seasonal/environmental allergies: No The ROS is otherwise negative. The patient's pmh, medications, allergies, and past visits are reviewed. PHYSICAL EXAM: BP 122/74 Pulse 98 Temp 36.3 ?C (97.4 ?F) Resp 21 Wt 96.4 kg (212 lb 9.6 oz) LMP 03/01/2022 (Approximate) SpO2 97% BMI 35.93 kg/m? General appearance: alert, cooperative, pleasant, in no acute distress Head: Normocephalic Eyes: EOM's intact, conjunctiva pink and moist, no icterus, sclera white, non-injected Ears: Right ear: External ear/canal- Normal, TM - clear with good landmarks. Left ear: External ear/canal- Normal, TM - clear with good landmarks Oropharynx:mild erythema, without exudates present Neck: palpable lymph node on left side between a pea and small marble size. It is tender. Heart: Negative. RRR without obvious murmur, gallop, or rubs. No ectopy. Lungs: clear to auscultation, without rales or wheeze, good air exchange PAST MEDICAL HISTORY Diagnosis Date Anemia Anxiety epression/anxiety Convulsions (HCC) 10/16/2021 depression Prematurity 5 weeks early Twin PAST SURGICAL HISTORY Procedure Laterality Date TONSILLECTOMY HX 08/2020 TOOTH EXTRACTION ALLERGIES Buspar [Buspirone] and Lexapro [Escitalopram] MEDICATIONS LORazepam (ATIVAN) 0.5 mg Take 1 tablet by mouth three times daily as needed (anxiety) for up to 30 days. PARoxetine (PAXIL) 40 mg tablet Take 1 tablet by mouth once daily. levETIRAcetam (KEPPRA) 500 mg tablet TAKE 1 TABLET BY MOUTH TWICE A DAY ferrous sulfate 325 mg (65 mg iron) tablet TAKE 1 TABLET BY MOUTH EVERY OTHER DAY FAMILY HISTORY Problem Relation Age of Onset Asthma Father Hypertension Father other (pulmonary embolism) Mother 30 other (endometriosis) Mother No Known Problems Brother Asthma Sister other (PCOS) Sister No Known Problems Maternal Grandfather Breast Cancer Maternal Grandmother Seizures Paternal Grandfather No Known Problems Paternal Grandmother No Known Problems Daughter No Known Problems Son Seizures Paternal Aunt Social History Tobacco Use Smoking status: Never Smokeless tobacco: Never Vaping Use Vaping Use: Former Quit date: 07/18/2019 Substance Use Topics Alcohol use: Not Currently Comment: occ Drug use: No ASSESSMENT/PLAN: 1. Sore throat - ICD9: 462, ICD10: J02.9 - STREP A MOLECULAR (POC)- neg No viral testing at this time due to lack of symptoms. Potential red flag symptoms discussed with the patient. Reviewed appropriate action plan to take if red flag symptoms occur. Patient agreeable to treatment plan. We will give it another week and then follow-up with primary care if palpable lymph node does not seem to dissipate. Zahida Hurt APRN.[facility] 05-17-2022 History of Presen t illness Narrative CC: Patient presents with: Pain: Swollen gland in left side of neck x 1 week Did have COVID 2 weeks ago. HPI: Patricia Heart is a 26 year old female who presents to the office with complaint of sore throat for a week. Symptoms are staying the same. Associated symptoms includes swollen glands. Denies fever, nausea, vomiting , and diarrhea. Treatments tried include nothing so far. with no relief of symptoms. Sick contacts: unknown. History of asthma, frequent episodes of bronchitis, chronic bronchitis, bronchiectasis or COPD: No Smoker: No Seasonal/environmental allergies: No The ROS is otherwise negative. The patient's pmh, medications, allergies, and past visits are reviewed. PHYSICAL EXAM: BP 122/74 Pulse 98 Temp 36.3 C (97.4 F) Resp 21 Wt 96.4 kg (212 lb 9.6 oz) LMP 03/01/2022 (Approximate) SpO2 97% BMI 35.93 kg/m General appearance: alert, cooperative, pleasant, in no acute distress Head: Normocephalic Eyes: EOM's intact, conjunctiva pink and moist, no icterus, sclera white, non-injected Ears: Right ear: External ear/canal- Normal, TM - clear with good landmarks. Left ear: External ear/canal- Normal, TM - clear with good landmarks Oropharynx:mild erythema, without exudates present Neck: palpable lymph node on left side between a pea and small marble size. It is tender. Heart: Negative. RRR without obvious murmur, gallop, or rubs. No ectopy. Lungs: clear to auscultation, without rales or wheeze, good air exchange PAST MEDICAL HISTORY Diagnosis Date Anemia Anxiety epression/anxiety Convulsions (HCC) 10/16/2021 depression Prematurity 5 weeks early Twin PAST SURGICAL HISTORY Procedure Laterality Date TONSILLECTOMY HX 08/2020 TOOTH EXTRACTION ALLERGIES Buspar [Buspirone] and Lexapro [Escitalopram] MEDICATIONS LORazepam (ATIVAN) 0.5 mg Take 1 tablet by mouth three times daily as needed (anxiety) for up to 30 days. PARoxetine (PAXIL) 40 mg tablet Take 1 tablet by mouth once daily. levETIRAcetam (KEPPRA) 500 mg tablet TAKE 1 TABLET BY MOUTH TWICE A DAY ferrous sulfate 325 mg (65 mg iron) tablet TAKE 1 TABLET BY MOUTH EVERY OTHER DAY FAMILY HISTORY Problem Relation Age of Onset Asthma Father Hypertension Father other (pulmonary embolism) Mother 30 other (endometriosis) Mother No Known Problems Brother Asthma Sister other (PCOS) Sister No Known Problems Maternal Grandfather Breast Cancer Maternal Grandmother Seizures Paternal Grandfather No Known Problems Paternal Grandmother No Known Problems Daughter No Known Problems Son Seizures Paternal Aunt Social History Tobacco Use Smoking status: Never Smokeless tobacco: Never Vaping Use Vaping Use: Former Quit date: 07/18/2019 Substance Use Topics Alcohol use: Not Currently Comment: occ Drug use: No ASSESSMENT/PLAN: 1. Sore throat - ICD9: 462, ICD10: J02.9 - STREP A MOLECULAR (POC)- neg No viral testing at this time due to lack of symptoms. Potential red flag symptoms discussed with the patient. Reviewed appropriate action plan to take if red flag symptoms occur. Patient agreeable to treatment plan. We will give it another week and then follow-up with primary care if palpable lymph node does not seem to dissipate. Zahida Hurt APRN.CNP documented in this encounter [facility] 03-29-2022 Miscellaneous Notes The following approved medication requests have been transmitted electronically. Requested Prescriptions Signed Prescriptions Disp Refills PARoxetine (PAXIL) 40 mg tablet 30 tablet 5 Sig: Take 1 tablet by mouth once daily. Arabella Fair APRN.CNP documented in this encounter [facility] 03-16-2022 Influenza virus A and B RNA and SARS-CoV-2 (COVID-19) N gene panel MAYLIN+probe (Resp) COVID 19 RESULT: SARS-CoV-2 (Agent of COVID-19) Not Detected by RT-PCR or equivalent method. This test was developed and its performance characteristics determined by [facility] [place]. This test has been authorized by FDA under an Emergency Use Authorization (EUA). This test has been validated in accordance with the FDA's Guidance Document Policy for Diagnostics Testing in Laboratories Certified to Perform High Complexity Testing under CLIA prior to Emergency use Authorization for Coronavirus Disease 2019 during the Public Health Emergency issued on April 25, 2019. Test performed by [facility], [facility] [place], [address] [place] [id number]. INFLUENZA A PCR: Negative for Influenza A by RT-PCR INFLUENZA B PCR: Negative for Influenza B by RT-PCR [facility] documented as of this encounter (statuses as of 05/30/2021) [facility] History of Past illness Narrative* Problem Noted Date Resolved Date Elevated glucose 10/02/2019 06/17/2020 Overview: 10/20/19 - normal 3hr GTT - Sheila Hurt MD 10/08/19 - 3hr GTT ordered - Sheila Hurt MD Elevated blood pressure affecting , ant epartum 10/01/2019 06/17/2020 Overview: 10/08/19 - BP normal today - Sheila Hurt MD 10/01/19 - possible undiagnosed chtn - Sheila Hurt MD Obesity in 09/17/2019 06/17/2020 Overview: 09/17/2019Patient is obese. Will plan on GCT at new OB. TKRN documented as of this encounter (statuses as of 06/14/2021) [facility] History of Past illness Narrative* Problem Noted Date Resolved Date Elevated glucose 10/02/2019 06/17/2020 Overview: 10/20/19 - normal 3hr GTT - Sheila Hurt MD 10/08/19 - 3hr GTT ordered - Sheila Hurt MD Elevated blood pressure affecting , ant epartum 10/01/2019 06/17/2020 Overview: 10/08/19 - BP normal today - Sheila Hurt MD 10/01/19 - possible undiagnosed chtn - Sheila Hurt MD Obesity in 09/17/2019 06/17/2020 Overview: 09/17/2019Patient is obese. Will plan on GCT at new OB. TKRN documented as of this encounter (statuses as of 06/14/2021) [facility] History of Past illness Narrative* Problem Noted Date Resolved Date Elevated glucose 10/02/2019 06/17/2020 Overview: 10/20/19 - normal 3hr GTT - Sheila Hurt MD 10/08/19 - 3hr GTT ordered - Sheila Hurt MD Elevated blood pressure affecting , ant epartum 10/01/2019 06/17/2020 Overview: 10/08/19 - BP normal today - Sheila Hurt MD 10/01/19 - possible undiagnosed chtn - Sheila Hurt MD Obesity in 09/17/2019 06/17/2020 Overview: 09/17/2019Patient is obese. Will plan on GCT at new OB. TKRN documented as of this encounter (statuses as of 06/23/2021) [facility] History of Past illness Narrative* Problem Noted Date Resolved Date Elevated glucose 10/02/2019 06/17/2020 Overview: 10/20/19 - normal 3hr GTT - Sheila Hurt MD 10/08/19 - 3hr GTT ordered - Sheila Hurt MD Elevated blood pressure affecting , ant epartum 10/01/2019 06/17/2020 Overview: 10/08/19 - BP normal today - Sheila Hurt MD 10/01/19 - possible undiagnosed chtn - Sheila Hurt MD Obesity in 09/17/2019 06/17/2020 Overview: 09/17/2019Patient is obese. Will plan on GCT at new OB. TKRN documented as of this encounter (statuses as of 06/23/2021) [facility] History of Past illness Narrative* Problem Noted Date Resolved Date Elevated glucose 10/02/2019 06/17/2020 Overview: 10/20/19 - normal 3hr GTT - Sheila Hurt MD 10/08/19 - 3hr GTT ordered - Sheila Hurt MD Elevated blood pressure affecting , ant epartum 10/01/2019 06/17/2020 Overview: 10/08/19 - BP normal today Darin Hurt MD 10/01/19 - possible undiagnosed chtn Darin Hurt MD Obesity in 09/17/2019 06/17/2020 Overview: 09/17/2019Patient is obese. Will plan on GCT at new OB. TKRN documented as of this encounter (statuses as of 06/26/2021) [facility] History of Past illness Narrative* Problem Noted Date Resolved Date Elevated glucose 10/02/2019 06/17/2020 Overview: 10/20/19 - normal 3hr GTT - Sheila Hurt MD 10/08/19 - 3hr GTT ordered - Sheila Hurt MD Elevated blood pressure affecting , ant epartum 10/01/2019 06/17/2020 Overview: 10/08/19 - BP normal today - Sheila Hurt MD 10/01/19 - possible undiagnosed chtn - Sheila Hurt MD Obesity in 09/17/2019 06/17/2020 Overview: 09/17/2019Patient is obese. Will plan on GCT at new OB. TKRN documented as of this encounter (statuses as of 06/27/2021) [facility] History of Past illness Narrative* Problem Noted Date Resolved Date Elevated glucose 10/02/2019 06/17/2020 Overview: 10/20/19 - normal 3hr GTT - Sheila Hurt MD 10/08/19 - 3hr GTT ordered - Sheila Hurt MD Elevated blood pressure affecting , ant epartum 10/01/2019 06/17/2020 Overview: 10/08/19 - BP normal today - Sheila Hurt MD 10/01/19 - possible undiagnosed chtn - Sheila Hurt MD Obesity in 09/17/2019 06/17/2020 Overview: 09/17/2019Patient is obese. Will plan on GCT at new OB. TKRN documented as of this encounter (statuses as of 07/05/2021) [facility] History of Past illness Narrative* Problem Noted Date Resolved Date Elevated glucose 10/02/2019 06/17/2020 Overview: 10/20/19 - normal 3hr GTT - Sheila Hurt MD 10/08/19 - 3hr GTT ordered - Sheila Hurt MD Elevated blood pressure affecting , ant epartum 10/01/2019 06/17/2020 Overview: 10/08/19 - BP normal today - Sheila Hurt MD 10/01/19 - possible undiagnosed chtn - Sheila Hurt MD Obesity in 09/17/2019 06/17/2020 Overview: 09/17/2019Patient is obese. Will plan on GCT at new OB. TKRN documented as of this encounter (statuses as of 07/07/2021) [facility]2020 History of Past illness Narrative* Problem Noted Date Resolved Date Elevated glucose 10/02/2019 06/17/2020 Overview: 10/20/19 - normal 3hr GTT - Sheila Hurt MD 10/08/19 - 3hr GTT ordered - Sheila Hurt MD Elevated blood pressure affecting , ant epartum 10/01/2019 06/17/2020 Overview: 10/08/19 - BP normal today - Sheila Hurt MD 10/01/19 - possible undiagnosed chtn - Sheila Hurt MD Obesity in 09/17/2019 06/17/2020 Overview: 09/17/2019Patient is obese. Will plan on GCT at new OB. TKRN documented as of this encounter (statuses as of 10/09/2021) [facility]2020 History of Past illness Narrative* Problem Noted Date Resolved Date Elevated glucose 10/02/2019 06/17/2020 Overview: 10/20/19 - normal 3hr GTT - Sheila Hurt MD 10/08/19 - 3hr GTT ordered - Sheila Hurt MD Elevated blood pressure affecting , ant epartum 10/01/2019 06/17/2020 Overview: 10/08/19 - BP normal today - Sheila Hurt MD 10/01/19 - possible undiagnosed chtn - Sheila Hurt MD Obesity in 09/17/2019 06/17/2020 Overview: 09/17/2019Patient is obese. Will plan on GCT at new OB. TKRN documented as of this encounter (statuses as of 10/10/2021) [facility]2020 History of Past illness Narrative* Problem Noted Date Resolved Date Elevated glucose 10/02/2019 06/17/2020 Overview: 10/20/19 - normal 3hr GTT - Sheila Hurt MD 10/08/19 - 3hr GTT ordered - Sheila Hurt MD Elevated blood pressure affecting , ant epartum 10/01/2019 06/17/2020 Overview: 10/08/19 - BP normal today - Sheila Hurt MD 10/01/19 - possible undiagnosed chtn - Sheila Hurt MD Obesity in 09/17/2019 06/17/2020 Overview: 09/17/2019Patient is obese. Will plan on GCT at new OB. TKRN documented as of this encounter (statuses as of 10/10/2021) [facility]2020 History of Past illness Narrative* Problem Noted Date Resolved Date Elevated glucose 10/02/2019 06/17/2020 Overview: 10/20/19 - normal 3hr GTT - Sheila Hurt MD 10/08/19 - 3hr GTT ordered - Sheila Hurt MD Elevated blood pressure affecting , ant epartum 10/01/2019 06/17/2020 Overview: 10/08/19 - BP normal today - Sheila Hurt MD 10/01/19 - possible undiagnosed chtn - Sheila Hurt MD Obesity in 09/17/2019 06/17/2020 Overview: 09/17/2019Patient is obese. Will plan on GCT at new OB. TKRN documented as of this encounter (statuses as of 10/13/2021) [facility] History of Past illness Narrative* Problem Noted Date Resolved Date Elevated glucose 10/02/2019 06/17/2020 Overview: 10/20/19 - normal 3hr GTT - Sheila Hurt MD 10/08/19 - 3hr GTT ordered - Sheila Hurt MD Elevated blood pressure affecting , ant epartum 10/01/2019 06/17/2020 Overview: 10/08/19 - BP normal today - Sheila Hurt MD 10/01/19 - possible undiagnosed chtn - Sheila Hurt MD Obesity in 09/17/2019 06/17/2020 Overview: 09/17/2019Patient is obese. Will plan on GCT at new OB. TKRN documented as of this encounter (statuses as of 10/16/2021) [facility]2020 History of Past illness Narrative* Problem Noted Date Resolved Date Elevated glucose 10/02/2019 06/17/2020 Overview: 10/20/19 - normal 3hr GTT - Sheila Hurt MD 10/08/19 - 3hr GTT ordered - Sheila Hurt MD Elevated blood pressure affecting , ant epartum 10/01/2019 06/17/2020 Overview: 10/08/19 - BP normal today - Sheila Hurt MD 10/01/19 - possible undiagnosed chtn - Sheila Hurt MD Obesity in 09/17/2019 06/17/2020 Overview: 09/17/2019Patient is obese. Will plan on GCT at new OB. TKRN documented as of this encounter (statuses as of 10/16/2021) [facility] History of Past illness Narrative* Problem Noted Date Resolved Date Elevated glucose 10/02/2019 06/17/2020 Overview: 10/20/19 - normal 3hr GTT - Sheila Hurt MD 10/08/19 - 3hr GTT ordered - Sheila Hurt MD Elevated blood pressure affecting , ant epartum 10/01/2019 06/17/2020 Overview: 10/08/19 - BP normal today - Sheila Hurt MD 10/01/19 - possible undiagnosed chtn - Sheila Hurt MD Obesity in 09/17/2019 06/17/2020 Overview: 09/17/2019Patient is obese. Will plan on GCT at new OB. TKRN documented as of this encounter (statuses as of 10/17/2021) [facility] History of Past illness Narrative* Problem Noted Date Resolved Date Elevated glucose 10/02/2019 06/17/2020 Overview: 10/20/19 - normal 3hr GTT - Sheila Hurt MD 10/08/19 - 3hr GTT ordered - Sheila Hurt MD Elevated blood pressure affecting , ant epartum 10/01/2019 06/17/2020 Overview: 10/08/19 - BP normal today - Sheila Hurt MD 10/01/19 - possible undiagnosed chtn - Sheila Hurt MD Obesity in 09/17/2019 06/17/2020 Overview: 09/17/2019Patient is obese. Will plan on GCT at new OB. TKRN documented as of this encounter (statuses as of 10/23/2021) [facility] History of Past illness Narrative* Problem Noted Date Resolved Date Elevated glucose 10/02/2019 06/17/2020 Overview: 10/20/19 - normal 3hr GTT - Sheila Hurt MD 10/08/19 - 3hr GTT ordered - Sheila Hurt MD Elevated blood pressure affecting , ant epartum 10/01/2019 06/17/2020 Overview: 10/08/19 - BP normal today - Sheila Hurt MD 10/01/19 - possible undiagnosed chtn - Sheila Hurt MD Obesity in 09/17/2019 06/17/2020 Overview: 09/17/2019Patient is obese. Will plan on GCT at new OB. TKRN documented as of this encounter (statuses as of 11/08/2021) [facility]2020 History of Past illness Narrative* Problem Noted Date Resolved Date Elevated glucose 10/02/2019 06/17/2020 Overview: 10/20/19 - normal 3hr GTT - Sheila Hurt MD 10/08/19 - 3hr GTT ordered - Sheila Hurt MD Elevated blood pressure affecting , ant epartum 10/01/2019 06/17/2020 Overview: 10/08/19 - BP normal today - Sheila Hurt MD 10/01/19 - possible undiagnosed chtn - Sheila Hurt MD Obesity in 09/17/2019 06/17/2020 Overview: 09/17/2019Patient is obese. Will plan on GCT at new OB. TKRN documented as of this encounter (statuses as of 11/15/2021) [facility]2020 History of Past illness Narrative* Problem Noted Date Resolved Date Elevated glucose 10/02/2019 06/17/2020 Overview: 10/20/19 - normal 3hr GTT - Sheila Hurt MD 10/08/19 - 3hr GTT ordered - Sheila Hurt MD Elevated blood pressure affecting , ant epartum 10/01/2019 06/17/2020 Overview: 10/08/19 - BP normal today - Sheila Hurt MD 10/01/19 - possible undiagnosed chtn - Sheila Hurt MD Obesity in 09/17/2019 06/17/2020 Overview: 09/17/2019Patient is obese. Will plan on GCT at new OB. TKRN documented as of this encounter (statuses as of 02/07/2022) [facility]2020 History of Past illness Narrative* Problem Noted Date Resolved Date Elevated glucose 10/02/2019 06/17/2020 Overview: 10/20/19 - normal 3hr GTT - Sheila Hurt MD 10/08/19 - 3hr GTT ordered - Sheila Hurt MD Elevated blood pressure affecting , ant epartum 10/01/2019 06/17/2020 Overview: 10/08/19 - BP normal today - Sheila Hurt MD 10/01/19 - possible undiagnosed chtn - Sheila Hurt MD Obesity in 09/17/2019 06/17/2020 Overview: 09/17/2019Patient is obese. Will plan on GCT at new OB. TKRN documented as of this encounter (statuses as of 03/13/2022) [facility]2020 History of Past illness Narrative* Problem Noted Date Resolved Date Elevated glucose 10/02/2019 06/17/2020 Overview: 10/20/19 - normal 3hr GTT - Sheila Hurt MD 10/08/19 - 3hr GTT ordered - Sheila Hurt MD Elevated blood pressure affecting , ant epartum 10/01/2019 06/17/2020 Overview: 10/08/19 - BP normal today - Sheila Hurt MD 10/01/19 - possible undiagnosed chtn - Sheila Hurt MD Obesity in 09/17/2019 06/17/2020 Overview: 09/17/2019Patient is obese. Will plan on GCT at new OB. TKRN documented as of this encounter (statuses as of 03/16/2022) [facility]2020 History of Past illness Narrative* Problem Noted Date Resolved Date Elevated glucose 10/02/2019 06/17/2020 Overview: 10/20/19 - normal 3hr GTT - Sheila Hurt MD 10/08/19 - 3hr GTT ordered - Sheila Hurt MD Elevated blood pressure affecting , ant epartum 10/01/2019 06/17/2020 Overview: 10/08/19 - BP normal today - Sheila Hurt MD 10/01/19 - possible undiagnosed chtn - Sheila Hurt MD Obesity in 09/17/2019 06/17/2020 Overview: 09/17/2019Patient is obese. Will plan on GCT at new OB. TKRN documented as of this encounter (statuses as of 03/29/2022) [facility]2020 History of Past illness Narrative* Problem Noted Date Resolved Date Elevated glucose 10/02/2019 06/17/2020 Overview: 10/20/19 - normal 3hr GTT - Sheila Hurt MD 10/08/19 - 3hr GTT ordered - Sheila Hurt MD Elevated blood pressure affecting , ant epartum 10/01/2019 06/17/2020 Overview: 10/08/19 - BP normal today - Sheila Hurt MD 10/01/19 - possible undiagnosed chtn - Sheila Hurt MD Obesity in 09/17/2019 06/17/2020 Overview: 09/17/2019Patient is obese. Will plan on GCT at new OB. TKRN documented as of this encounter (statuses as of 05/17/2022) [facility]2020 History of Past illness Narrative* Problem Noted Date Resolved Date Elevated glucose 10/02/2019 06/17/2020 Overview: 10/20/19 - normal 3hr GTT - Sheila Hurt MD 10/08/19 - 3hr GTT ordered - Sheila Hurt MD Elevated blood pressure affecting , ant epartum 10/01/2019 06/17/2020 Overview: 10/08/19 - BP normal today - Sheila Hurt MD 10/01/19 - possible undiagnosed chtn Darin Hurt MD Obesity in 09/17/2019 06/17/2020 Overview: 09/17/2019Patient is obese. Will plan on GCT at new OB. TKRN documented as of this encounter (statuses as of 06/08/2022) [facility]2020 History of Past illness Narrative* Problem Noted Date Resolved Date Elevated glucose 10/02/2019 06/17/2020 Overview: 10/20/19 - normal 3hr GTT - Sheila Hurt MD 10/08/19 - 3hr GTT ordered - Sheila Hurt MD Elevated blood pressure affecting , ant epartum 10/01/2019 06/17/2020 Overview: 10/08/19 - BP normal today - Sheila Hurt MD 10/01/19 - possible undiagnosed chtn - Sheila Hurt MD Obesity in 09/17/2019 06/17/2020 Overview: 09/17/2019Patient is obese. Will plan on GCT at new OB. TKRN documented as of this encounter (statuses as of 08/09/2022) [facility]2020 History of Past illness Narrative* Problem Noted Date Diagnosed Date Resolved Date Elevated glucose 10/02/2019 06/17/2020 Overview: 10/20/19 - normal 3hr GTT - Sheila Hurt MD 10/08/19 - 3hr GTT ordered - Sheila Hurt MD Elevated blood pressure affe cting , antepartum 10/01/2019 06/17/2020 Overview: 10/08/19 - BP normal today - Sheila Hurt MD 10/01/19 - possible undiagnosed chtn - Sheila Hurt MD Obesity in 09/17/2019 021 Overview: 09/17/2019Patient is obese. Will plan on GCT at new OB. TKRN documented as of this encounter (statuses as of 09/25/2022) [facility]2020 History of Past illness Narrative* Problem Noted Date Diagnosed Date Resolved Date Elevated glucose 10/02/2019 06/17/2020 Overview: 10/20/19 - normal 3hr GTT - Sheila Hurt MD 10/08/19 - 3hr GTT ordered - Sheila Hurt MD Elevated blood pressure affe cting , antepartum 10/01/2019 06/17/2020 Overview: 10/08/19 - BP normal today - Sheila Hurt MD 10/01/19 - possible undiagnosed chtn - Sheila Hurt MD Obesity in 09/17/2019 021 Overview: 09/17/2019Patient is obese. Will plan on GCT at new OB. TKRN documented as of this encounter (statuses as of 10/06/2022) [facility]2020 History of Past illness Narrative* Problem Noted Date Diagnosed Date Resolved Date Elevated glucose 10/02/2019 06/17/2020 Overview: 10/20/19 - normal 3hr GTT - Sheila Hurt MD 10/08/19 - 3hr GTT ordered - Sheila Hurt MD Elevated blood pressure affe cting , antepartum 10/01/2019 06/17/2020 Overview: 10/08/19 - BP normal today - Sheila Hurt MD 10/01/19 - possible undiagnosed chtn - Sheila uHrt MD Obesity in 09/17/2019 021 Overview: 09/17/2019Patient is obese. Will plan on GCT at new OB. TKRN documented as of this encounter (statuses as of 10/10/2022) [facility]2020 History of Past illness Narrative* Problem Noted Date Diagnosed Date Resolved Date Elevated glucose 10/02/2019 06/17/2020 Overview: 10/20/19 - normal 3hr GTT - Sheila Hurt MD 10/08/19 - 3hr GTT ordered - Sheila Hurt MD Elevated blood pressure affe cting , antepartum 10/01/2019 06/17/2020 Overview: 10/08/19 - BP normal today - Sheila Hurt MD 10/01/19 - possible undiagnosed chtn Darin Hurt MD Obesity in 09/17/2019 021 Overview: 09/17/2019Patient is obese. Will plan on GCT at new OB. TKRN documented as of this encounter (statuses as of 10/10/2022) [facility]2020 History of Past illness Narrative* Problem Noted Date Diagnosed Date Resolved Date Elevated glucose 10/02/2019 06/17/2020 Overview: 10/20/19 - normal 3hr GTT - Sheila Hurt MD 10/08/19 - 3hr GTT ordered - Sheila Hurt MD Elevated blood pressure affe cting , antepartum 10/01/2019 06/17/2020 Overview: 10/08/19 - BP normal today - Sheila Hurt MD 10/01/19 - possible undiagnosed chtn - Sheila Hurt MD Obesity in 09/17/2019 021 Overview: 09/17/2019Patient is obese. Will plan on GCT at new OB. TKRN documented as of this encounter (statuses as of 10/30/2022) [facility]2020 History of Past illness Narrative* Problem Noted Date Diagnosed Date Resolved Date Elevated glucose 10/02/2019 06/17/2020 Overview: 10/20/19 - normal 3hr GTT - Sheila Hurt MD 10/08/19 - 3hr GTT ordered - Sheila Hurt MD Elevated blood pressure affe cting , antepartum 10/01/2019 06/17/2020 Overview: 10/08/19 - BP normal today - Sheila Hurt MD 10/01/19 - possible undiagnosed chtn Darin Hurt MD Obesity in 09/17/2019 021 Overview: 09/17/2019Patient is obese. Will plan on GCT at new OB. TKRN documented as of this encounter (statuses as of 11/05/2022) [facility]2020 History of Past illness Narrative* Problem Noted Date Diagnosed Date Resolved Date Elevated glucose 10/02/2019 06/17/2020 Overview: 10/20/19 - normal 3hr GTT - Sheila Hurt MD 10/08/19 - 3hr GTT ordered - Sheila Hurt MD Elevated blood pressure affe cting , antepartum 10/01/2019 06/17/2020 Overview: 10/08/19 - BP normal today - Sheila Hurt MD 10/01/19 - possible undiagnosed chtn - Sheila Hurt MD Obesity in 09/17/2019 021 Overview: 09/17/2019Patient is obese. Will plan on GCT at new OB. TKRN documented as of this encounter (statuses as of 11/07/2022) [facility]2020 History of Past illness Narrative* Problem Noted Date Diagnosed Date Resolved Date Elevated glucose 10/02/2019 06/17/2020 Overview: 10/20/19 - normal 3hr GTT - Sheila Hurt MD 10/08/19 - 3hr GTT ordered - Sheial Hurt MD Elevated blood pressure affe cting , antepartum 10/01/2019 06/17/2020 Overview: 10/08/19 - BP normal today - Sheila Hurt MD 10/01/19 - possible undiagnosed chtn - Sheila Hurt MD Obesity in 09/17/2019 021 Overview: 09/17/2019Patient is obese. Will plan on GCT at new OB. TKRN documented as of this encounter (statuses as of 04/11/2023) [facility] No data available for this section [facility] Evaluation note* Diagnosis 32 weeks gestation of - Primary state, incidental Obesity complicating , third trimester [facility] 34 weeks gestation of - Primary state, incidental Obesity complicating , third trimester Short interval between pregnancies affecting , antepartum Anemia complicating , third trimester documented in this encounter [facility] note* Diagnosis Obesity complicating , third trimester- Primary 34 weeks gestation of state, incidental documented in this encounter [facility] note* Diagnosis contractions- Primary Threatened premature labor, antepartum 35 weeks gestation of state, incidental documented in this encounter [facility] note* Diagnosis Antepartum anemia Anemia, antepartum documented in this encounter [facility] note* Diagnosis 36 weeks gestation of - Primary state, incidental documented in this encounter [facility] note* Diagnosis Convulsions, unspecified convulsion type (HCC)- Primary documented in this encounter [facility] note* Diagnosis Convulsions, unspecified convulsion type (HCC) documented in this encounter [facility] note* Diagnosis Anxiety with depression- Primary documented in this encounter [facility] note* Diagnosis Anxiety with depression- Primary Panic attacks Panic disorder without agoraphobia documented in this encounter [facility] note* Diagnosis Streptococcus exposure- Primary Contact with or exposure to other communicable diseases Throat pain Viral illness Unspecified viral infection, in conditions classified elsewhere and of unspecified site documented in this encounter [facility] note* Diagnosis Anxiety with depression- Primary documented in this encounter [facility] note* Diagnosis Sore throat- Primary Acute pharyngitis documented in this encounter [facility] note* Diagnosis Convulsions, unspecified convulsion type (HCC)- Primary documented in this encounter [facility] note* Diagnosis Anxiety with depression documented in this encounter [facility] note* Diagnosis Convulsions, unspecified convulsion type (HCC)- Primary documented in this encounter [facility] note* Diagnosis Encounter for gynecological examination with abnormal finding- Primary Routine gynecological examination Superficial dyspareunia Stress incontinence Female stress incontinence Cystocele, midline documented in this encounter [facility] note* Diagnosis Convulsions, unspecified convulsion type (HCC)- Primary documented in this encounter [facility] for referral (narrative)* Diagnostic Procedure Only (Routine) - Open Specialty Diagnoses / Procedures Referred By Rob alexander Referred To Contact [facility] Diagnoses 32 weeks gestation of Obesity complicating , third trimester Procedures OBSTETRIC ULTRASOUND WHI US PREG UTERUS AFTER 1ST TRIMEST GESTATION Sheila Hurt MD [address] [place] [address] [facility] [address] [place] [address] Referral ID Status Reason Start Date Expiration Date V isits Requested Visits Authorized [id number] Open Auto-Generate d Referral 05/30/2021 05/30/2022 1 1 [facility] for referral (narrative)* Outpatient Procedure (Routine) - Pending Review Specialty Diagnoses / Procedures Referred By Rob t Referred To [facility] Diagnoses Convulsions, unspecified convulsion type (HCC) Procedures EPIL EEG LONG EEG EXTENDED MONITORING 61-119 MINUTES ELECTROENCEPHALOGRAM REC COMA/SLEEP ONLY Miki Virk MD [id number] [email or web address] [address] [address] [facility] [address] [place] [id number] Referral ID Status Reason Start Date Expiration Date Visits Requested Visits Authorized [id number] Pending Review Auto-Generat ed Referral 10/16/2021 10/16/2022 1 1 * MRI/CT (Routine) - Pending Review Specialty Diagnoses / Procedures Referred By Rob t Referred To Contact [facility] Diagnoses Convulsions, unspecified convulsion type (HCC) Procedures MRI BRAIN WO IVCON MRI BRAIN BRAIN STEM W/O CONTRAST MATERIAL Miki Virk MD [id number] [email or web address] [address] [place] [id number] [facility] Referral ID Status Reason Start Date Expiration Date Visits Requested Visits Authorized [id number] Pending Review Auto-Generat ed Referral 10/16/2021 11/15/2022 1 1 [facility] Summary Purpose Family History No Family History Records FoundNo Family History Records FoundNo Family History Records Found Advance Directives No Advanced Directives Records FoundNo Advanced Directives Records FoundNo Advanced Directives Records Found Reason for Referral Specialty Diagnoses / Procedures Referred By Contac t Referred To Contact [facility] Diagnoses Superficial dyspareunia Stress incontinence Cystocele, midline Procedures CONSULT TO PHYSICAL THERAPY PHYSICAL THERAPY EVALUATION HIGH COMPLEX 45 MINS María Peterson, KILN FIRER.DOCTOR OF NAPRAPATHY [address] [place] [address] [facility] [place] [address] [place] [address] Referral ID Status Reason Start Date Expiration Date Visits Requested Visits Authorized [id number] Pending Review Auto-Generat ed Referral 10/30/2022 10/30/2023 1 1 Specialty Diagnoses / Procedures Referred By Contac t Referred To Contact [facility] Diagnoses Convulsions, unspecified convulsion type (HCC) Procedures MRI BRAIN WO IVCON MRI BRAIN BRAIN STEM W/O CONTRAST MATERIAL Miki Virk MD [address] [place] [address] [facility] Referral ID Status Reason Start Date Expiration Date V isits Requested Visits Authorized [id number] Closed Auto-Generate d Referral 10/27/2021 02/24/2022 1 1 Health Concerns Infection Onset Date Last Indicated Resolved Time COVID-19 Rule-Out 03/16/2022 03/16/2022 Additional Source Comments Source Comments (unrecognize d section and content) In the event this informatio n is protected by the Federal Confidentiality of Alcohol and Drug Abuse Patient Records regulations: The Federal rules restrict any use of the information to criminally investigate or prosecute any alcohol or drug abuse patient.[facility] event this information is protected by the Federal Confidentiality of Alcohol and Drug Abuse Patient Records regulations: The Federal rules restrict any use of the information to criminally investigate or prosecute any alcohol or drug abuse patient.[facility] the event this information is protected by the Federal Confidentiality of Alcohol and Drug Abuse Patient Records regulations: The Federal rules restrict any use of the information to criminally investigate or prosecute any alcohol or drug abuse patient.[facility] the event this information is protected by the Federal Confidentiality of Alcohol and Drug Abuse Patient Records regulations: The Federal rules restrict any use of the information to criminally investigate or prosecute any alcohol or drug abuse patient.[facility] the event this information is protected by the Federal Confidentiality of Alcohol and Drug Abuse Patient Records regulations: The Federal rules restrict any use of the information to criminally investigate or prosecute any alcohol or drug abuse patient.[facility] event this information is protected by the Federal Confidentiality of Alcohol and Drug Abuse Patient Records regulations: The Federal rules restrict any use of the information to criminally investigate or prosecute any alcohol or drug abuse patient.[facility] the event this information is protected by the Federal Confidentiality of Alcohol and Drug Abuse Patient Records regulations: The Federal rules restrict any use of the information to criminally investigate or prosecute any alcohol or drug abuse patient.[facility] event this information is protected by the Federal Confidentiality of Alcohol and Drug Abuse Patient Records regulations: The Federal rules restrict any use of the information to criminally investigate or prosecute any alcohol or drug abuse patient.[facility] the event this information is protected by the Federal Confidentiality of Alcohol and Drug Abuse Patient Records regulations: The Federal rules restrict any use of the information to criminally investigate or prosecute any alcohol or drug abuse patient.[facility] the event this information is protected by the Federal Confidentiality of Alcohol and Drug Abuse Patient Records regulations: The Federal rules restrict any use of the information to criminally investigate or prosecute any alcohol or drug abuse patient.[facility] the event this information is protected by the Federal Confidentiality of Alcohol and Drug Abuse Patient Records regulations: The Federal rules restrict any use of the information to criminally investigate or prosecute any alcohol or drug abuse patient.[facility] the event this information is protected by the Federal Confidentiality of Alcohol and Drug Abuse Patient Records regulations: The Federal rules restrict any use of the information to criminally investigate or prosecute any alcohol or drug abuse patient.[facility] the event this information is protected by the Federal Confidentiality of Alcohol and Drug Abuse Patient Records regulations: The Federal rules restrict any use of the information to criminally investigate or prosecute any alcohol or drug abuse patient.[facility] TroyIn the event this information is protected by the Federal Confidentiality of Alcohol and Drug Abuse Patient Records regulations: The Federal rules restrict any use of the information to criminally investigate or prosecute any alcohol or drug abuse patient.[facility] TroyIn the event this information is protected by the Federal Confidentiality of Alcohol and Drug Abuse Patient Records regulations: The Federal rules restrict any use of the information to criminally investigate or prosecute any alcohol or drug abuse patient.[facility] TroyIn the event this information is protected by the Federal Confidentiality of Alcohol and Drug Abuse Patient Records regulations: The Federal rules restrict any use of the information to criminally investigate or prosecute any alcohol or drug abuse patient.[facility] TroyIn the event this information is protected by the Federal Confidentiality of Alcohol and Drug Abuse Patient Records regulations: The Federal rules restrict any use of the information to criminally investigate or prosecute any alcohol or drug abuse patient.[facility] TroyIn the event this information is protected by the Federal Confidentiality of Alcohol and Drug Abuse Patient Records regulations: The Federal rules restrict any use of the information to criminally investigate or prosecute any alcohol or drug abuse patient.[facility] TroyIn the event this information is protected by the Federal Confidentiality of Alcohol and Drug Abuse Patient Records regulations: The Federal rules restrict any use of the information to criminally investigate or prosecute any alcohol or drug abuse patient.[facility] TroyIn the event this information is protected by the Federal Confidentiality of Alcohol and Drug Abuse Patient Records regulations: The Federal rules restrict any use of the information to criminally investigate or prosecute any alcohol or drug abuse patient.[facility] TroyIn the event this information is protected by the Federal Confidentiality of Alcohol and Drug Abuse Patient Records regulations: The Federal rules restrict any use of the information to criminally investigate or prosecute any alcohol or drug abuse patient.[facility] TroyIn the event this information is protected by the Federal Confidentiality of Alcohol and Drug Abuse Patient Records regulations: The Federal rules restrict any use of the information to criminally investigate or prosecute any alcohol or drug abuse patient.[facility] TroyIn the event this information is protected by the Federal Confidentiality of Alcohol and Drug Abuse Patient Records regulations: The Federal rules restrict any use of the information to criminally investigate or prosecute any alcohol or drug abuse patient.[facility] TroyIn the event this information is protected by the Federal Confidentiality of Alcohol and Drug Abuse Patient Records regulations: The Federal rules restrict any use of the information to criminally investigate or prosecute any alcohol or drug abuse patient.[facility] TroyIn the event this information is protected by the Federal Confidentiality of Alcohol and Drug Abuse Patient Records regulations: The Federal rules restrict any use of the information to criminally investigate or prosecute any alcohol or drug abuse patient.[facility] TroyIn the event this information is protected by the Federal Confidentiality of Alcohol and Drug Abuse Patient Records regulations: The Federal rules restrict any use of the information to criminally investigate or prosecute any alcohol or drug abuse patient.[facility] TroyIn the event this information is protected by the Federal Confidentiality of Alcohol and Drug Abuse Patient Records regulations: The Federal rules restrict any use of the information to criminally investigate or prosecute any alcohol or drug abuse patient.[facility] TroyIn the event this information is protected by the Federal Confidentiality of Alcohol and Drug Abuse Patient Records regulations: The Federal rules restrict any use of the information to criminally investigate or prosecute any alcohol or drug abuse patient.[facility] TroyIn the event this information is protected by the Federal Confidentiality of Alcohol and Drug Abuse Patient Records regulations: The Federal rules restrict any use of the information to criminally investigate or prosecute any alcohol or drug abuse patient.[facility] TroyIn the event this information is protected by the Federal Confidentiality of Alcohol and Drug Abuse Patient Records regulations: The Federal rules restrict any use of the information to criminally investigate or prosecute any alcohol or drug abuse patient.[facility] TroyIn the event this information is protected by the Federal Confidentiality of Alcohol and Drug Abuse Patient Records regulations: The Federal rules restrict any use of the information to criminally investigate or prosecute any alcohol or drug abuse patient.[facility] TroyIn the event this information is protected by the Federal Confidentiality of Alcohol and Drug Abuse Patient Records regulations: The Federal rules restrict any use of the information to criminally investigate or prosecute any alcohol or drug abuse patient.[facility] TroyIn the event this information is protected by the Federal Confidentiality of Alcohol and Drug Abuse Patient Records regulations: The Federal rules restrict any use of the information to criminally investigate or prosecute any alcohol or drug abuse patient.[facility] TroyIn the event this information is protected by the Federal Confidentiality of Alcohol and Drug Abuse Patient Records regulations: The Federal rules restrict any use of the information to criminally investigate or prosecute any alcohol or drug abuse patient.[facility] TroyIn the event this information is protected by the Federal Confidentiality of Alcohol and Drug Abuse Patient Records regulations: The Federal rules restrict any use of the information to criminally investigate or prosecute any alcohol or drug abuse patient.[facility] Reason for Visit (unrecogniz ed section and content) Reason Onset Date Comments Care 06/13/2021 Reason Comments US Specialty Diagnoses / Procedures Referred By Rob alexander [facility] Diagnoses 32 weeks gestation of Obesity complicating , third trimester Procedures OBSTETRIC ULTRASOUND WHI US PREG UTERUS AFTER 1ST TRIMEST GESTATION Sheila Hurt MD [address] [place] [address] [facility] [address] [place] [place] [address] Referral ID Status Reason Start Date Expiration Date V isits Requested Visits Authorized [id number] Closed Auto-Generate d Referral 05/31/2021 02/24/2022 1 1 Reason Onset Date Comments Care 06/23/2021 Reason Comments Refill Request Reason Onset Date Comments Care 06/27/2021 Reason Comments Ob Delivery Note Reason Comments Breast Pump Reason Comments external document Reason Comments Appointment Reason Comments Future Appointment [place], [place], Any Reason Comments New Patient Reason Comments Request Outside Medical Records [facility] Reason Comments Received Outside Medical Records [facility] Specialty Diagnoses / Procedures Referred By Contac t Referred To Contact MR IMAGING Diagnoses Convulsions, unspecified convulsion type (HCC) Procedures MRI BRAIN WO IVCON MRI BRAIN BRAIN STEM W/O CONTRAST MATERIAL Miki Virk MD [address] [facility] - Desk [address] [place] [address] Mr Imaging Referral ID Status Reason Start Date Expiration Date V isits Requested Visits Authorized [id number] Closed Auto-Generate d Referral 10/27/2021 02/24/2022 1 1 Reason Comments Anxiety Reason Comments Medication Follow-up Reason Comments Pain, Throat Pt reported +strep e xposure, throat pain x1 day. Reason Comments Pain Swollen gland in lef t side of neck x 1 week Reason Comments Follow Up Reason Onset Date Comments Transition Of Care 09/24/2022 TCM Initial A [facility] Discharge 09/21/22 Reason Onset Date Comments Refill Request 10/08/2022 Reason Comments Forms FMLA Reason Comments Yearly Exam Care Team (unrecognized sect ion and content) Care Team Personnel Name: MAYELA NEUMANN MD Member Role: Primary Care Physician Address: Address: [address] [place] [address]- [place] Care Teams (unrecognized sec tion and content) Registered Health Nurse Relationship Specialty Start Date End Date Mayela Neumann MD [address] [place], [place] [id number] PCP - General Family Practice 09/21/21 Registered Health Nurse Relationship Specialty Start Date End Date Mayela Neumann MD [address] [place] [address] PCP - General Family Practice 09/21/21 Registered Health Nurse Relationship Specialty Start Date End Date Mayela Neumann MD [address] [place] [address] PCP - General Family Practice 09/21/21 Registered Health Nurse Relationship Specialty Start Date End Date Mayela Neumann MD [address] [place] [address] PCP - General Family Practice 09/21/21 Registered Health Nurse Relationship Specialty Start Date End Date Mayela Neumann MD [address] [place] [address] PCP - General Family Medicine 09/21/21 Registered Health Nurse Relationship Specialty Start Date End Date Mayela Neumann MD [address] [place] [address] PCP - General Family Medicine 09/21/21 Registered Health Nurse Relationship Specialty Start Date End Date Mayela Neumann MD [address] [place] [address] PCP - General Family Medicine 09/21/21 Registered Health Nurse Relationship Specialty Start Date End Date Mayela Neumann MD [address] [place] [address] PCP - General Family Medicine 09/21/21 Registered Health Nurse Relationship Specialty Start Date End Date Mayela Neumann MD [address] [place] [address] PCP - General Family Medicine 09/21/21 Registered Health Nurse Relationship Specialty Start Date End Date Mayela Neumann MD [address] [place] [address] PCP - General Family Medicine 09/21/21 Registered Health Nurse Relationship Specialty Start Date End Date Mayela eNumann MD [address] [place] [address] PCP - General Family Medicine 09/21/21 Claudia Chilel RN [address] [place] [address] Primary Care Cashier Internal Medicine 09/24/22 10/24/22 Registered Health Nurse Relationship Specialty Start Date End Date Mayela Neumann MD [address] [place] [address] PCP - General Family Medicine 09/21/21 Claudia Chilel RN [address] [place] [address] Primary Care Cashier Internal Medicine 09/24/22 10/24/22 Registered Health Nurse Relationship Specialty Start Date End Date Mayela Neumann MD [address] [place] [address] PCP - General Family Medicine 09/21/21 Claudia Chilel RN [address] [place], [place] [id number] Primary Care Cashier Internal Medicine 09/24/22 10/24/22 Registered Health Nurse Relationship Specialty Start Date End Date Mayela Neumann MD [address] [place] [address] PCP - General Family Medicine 09/21/21 Claudia Chilel RN [address] [place] [address] Primary Care Cashier Internal Medicine 09/24/22 10/24/22 Registered Health Nurse Relationship Specialty Start Date End Date Mayela Neumann MD [address] [place], [place] [address] PCP - General Family Medicine 09/21/21 Registered Health Nurse Relationship Specialty Start Date End Date Mayela Neumann MD [address] [facility] [address] PCP - General Family Medicine 09/21/21 Registered Health Nurse Relationship Specialty Start Date End Date Mayela Neumann MD [address] [facility], [place] [id number] PCP - General Family Medicine 09/21/21 Registered Health Nurse Relationship Specialty Start Date End Date Mayela Neumann MD [address] [place], [place] [id number] PCP - General Family Medicine 09/21/21 INFORMATION SOURCE (unrecogn ized section and content) DATE CREATED AUTHOR AUTHOR'S ORGANIZ ATION 09/25/2022 [facility] DATE CREATED AUTHOR AUTHOR'S ORGANIZ ATION 12/06/2022 [facility] FOR RECORDS PERTAINING TO PATIENTS WHO ARE OR HAVE BEEN ENROLLED IN A CHEMICAL DEPENDENCY/SUBSTANCEABUSE PROGRAM, SOME INFORMATION MAY BE OMITTED. This clinical summary was aggregated from multiple sources. Caution should be exercised in using it in the provision of clinical care. This summary normalizes information from multiple sources, and as a consequence, information in this document may materially change the coding, format and clinical context of patient data. In addition, data may be omitted in some cases. CLINICAL DECISIONS SHOULD BE BASED ON THE PRIMARY CLINICAL RECORDS. [facility] [employer] provides no warranty or guarantee of the accuracy or completeness of information in this document.
[2023-04-12 23:30] LABS: ALB/GLOB Ratio 1.1 RATIO (0.9-2.4); AST(SGOT) 18 U/L (15-37); Alanine Aminotransfer ALT/SGPT 28 U/L (13-56); Albumin, Serum 3.9 g/dL (3.2-5.0); Alkaline Phosphatase 89 U/L (45-117); Anion Gap 4 (5-15); BUN 15 mg/dL (7-18); BUN/Creat Ratio 14.6 RATIO (10-20); Calcium,Total 9.6 mg/dL (8.5-10.1); Chloride 109 mmol/L (98-107); Creatinine, Serum 1.03 mg/dL (0.55-1.02); EST Glomerular Filtration Rate 69 mL/min (>60); Est Glom Filt Rate - Afr Amer 83 mL/min (>60); Estimated Creatinine Clearance 98.36 ml/min; Globulin 3.5 g/dL (2.2-4.2); Glucose 100 mg/dL (74-106); Lipase 50 U/L (13-75); Potassium 3.9 mmol/L (3.5-5.1); Protein, Total 7.4 g/dL (6.4-8.2); Sodium Level 143 mmol/L (136-145)
[2023-04-13 00:46] VITALS: BP 148/78; PULSE 81; RESP 16; TEMP 36.6; O2SAT 99
== END 2023-04-13 00:51 | disposition home or self-care (01) ==
PROVIDERS: Emergency Provider Emergency Medicine; PCP Family Medicine; Visit Provider Emergency Medicine
DX: K92.0 Hematemesis (principal); E66.01 Morbid (severe) obesity due to excess calories; Z68.41 Body mass index [BMI] 40.0-44.9, adult
CPT/HCPCS: 80053; 81001; 83690; 84703; 85025; 96361; 96374; 99283; J7030; A4216; J2405

== ENCOUNTER 2023-09-18 22:24 | Emergency (ER) | payer BC, SELFPAY ==
[2023-09-18 22:25] VITALS: BP 174/117; PULSE 129; RESP 17; TEMP 36.4; O2SAT 100; BMI 36.3
--- NOTE | 2023-09-18 22:37 | RAD_ITS ---
EXAM: XR CHEST, 1 VIEW CLINICAL INDICATION: cp TECHNIQUE: Frontal view of the chest. COMPARISON: No relevant prior studies available. FINDINGS: LUNGS AND PLEURAL SPACES: Unremarkable. No consolidation or edema. No pneumothorax. No effusion. HEART: Unremarkable. Cardiac silhouette not enlarged. MEDIASTINUM: Central airways and mediastinal contour are unremarkable. BONES/JOINTS: Unremarkable. No acute fracture. SOFT TISSUES: Unremarkable. RAD/Chest 1 View (Portable) IMPRESSION: No radiographic evidence of acute cardiopulmonary disease. Electronically Signed: Moody Goodson MD at 23:50 EDT ,
--- NOTE | 2023-09-18 22:37 | EKG12_ITS ---
Test Reason : CP Blood Pressure : / mmHG Vent. Rate : 136 BPM Atrial Rate : 136 BPM P-R Int : 132 ms QRS Dur : 092 ms QT Int : 294 ms P-R-T Axes : 061 029 -42 degrees QTc Int : 442 ms Sinus tachycardia RSR' or QR pattern in V1 suggests right ventricular conduction delay ST & T wave abnormality, consider inferior ischemia ST & T wave abnormality, consider anterior ischemia Abnormal ECG Confirmed by GABY YIN, DEJON ([id number]), news video editor RODERICK BONNER ([id number]) on 09/24/2023 1:48:40 PM Referred By: Confirmed By:GUDELIA GRIFFIN MD
--- NOTE | 2023-09-18 22:40 | ED.VIS.CHEST ---
HPI History of Present Illness Chief Complaint: Chest Pain Informant: patient Onset/Context/Timing Onset: Today Narrative Narrative: Patient presents secondary to intermittent chest pain and feeling that her heart is racing today. She reports an ache in the left upper chest when she feels her heart racing and some aching down her left arm. This evening she has not heard noticing some shortness of breath as well. Patient denies cough or congestion. No recent fever. She has had some diarrhea that started yesterday. She has had some mild nausea as well. Patient denies significant change in caffeine intake. No change in medications. She does report increased stress at home as her son has a broken leg. [facility] Medical History Wears glasses Anemia Easy bruising Restless legs Non-smoker Leg cramps Seizure disorder Vaginal delivery History of anxiety Home Medications ?Medication ?Instructions ?Recorded ?Last Taken ?Type levetiracetam 500 mg tablet 500 mg PO BID 12/12/21 Unknown History (Kera) omeprazole 20 mg capsule,delayed 20 mg PO DAILY #30 CAPSULES 04/13/23 Unknown Rx release fluoxetine 40 mg capsule 40 mg PO DAILY 09/18/23 Unknown History lorazepam 0.5 mg tablet (Ativan) 0.5 mg PO BID PRN anxiety #20 tabs 09/18/23 Unknown Rx semaglutide (weight loss) 0.25 0.25 mg subcut 09/18/23 Unknown History mg/0.5 mL subcutaneous pen injector (Wegovy) potassium chloride 20 mEq 40 meq (2 x 20 mEq) PO DAILY #4 09/19/23 Unknown Rx tablet,extended release tabs Allergy/AdvReac Type Severity Reaction Status Date / Time buspirone (From BuSpar) AdvReac Other Verified 09/18/23 22:24 escitalopram (From Lexapro) AdvReac Other Verified 09/18/23 22:24 Family History Father Asthma Hypertension Grandfather Seizures Grandmother Breast cancer Surgical History Hx of tooth extraction Hx of tonsillectomy Social History Smoking Status: Never smoker ROS ROS ED Constitutional Constitutional ED: Denies chills or fever(s) Eyes Eyes: Denies discharge from eye(s) ENT ENT ED: Denies discharge from eye(s), rhinorrhea or sore throat Cardiovascular Cardiovascular: Reports chest pain and racing heartbeat Respiratory/Chest Respiratory/Chest: Reports dyspnea; Denies cough Gastrointestinal Gastrointestinal: Reports diarrhea and nausea; Denies abdominal pain or vomiting Genitourinary Genitourinary ED: Denies dysuria Musculoskeletal Musculoskeletal: Denies back pain or extremity pain Integumentary Denies Abrasions or rash Neurologic Neurologic: Denies headache(s) or weakness Psychiatric Psychiatric: Reports other Details: Increased stress ; Denies anxiety or depression Allergic/Immunologic Allergic/Immunologic ED: Denies lip swelling or urticaria EXAM Physical Exam Const Vital Signs: 09/18/23 22:25 Temperature 97.6 F L Temperature Source Temporal Pulse Rate 129 H Respiratory Rate 17 Blood Pressure 174/117 H Blood Pressure Mean 136 Pulse Ox 100 Oxygen Delivery Method Room Air Positive well nourished and well developed General Appearance ED: well developed HEENT Reports moist mucous membranes normocephalic Chest Wall inspection of chest normal and palpation of chest normal Resp normal respiratory effort and clear to auscultation bilaterally Cardio Rate: bradycardia GI soft to palpation and non-tender Extremity normal to inspection Neuro oriented x3 and no sensory deficits noted Motor Exam: strength 5/5 throughout Psych mental status grossly normal Skin no rashes or lesions noted MDM MDM MDM Narrative Medical decision making narrative: Patient placed on bus driver/monitor. IV line initiated. EKG obtained to evaluate for cardiac arrhythmia/ischemia. Chest x-ray obtained to evaluate for acute lung pathology, cardiac size, or mediastinal abnormality. Labwork obtained to evaluate for leukocytosis, anemia, and electrolyte derangement. Patient will be given a small dose of Ativan to help with stress and anxiety. She is given IV fluids. History & Record Review Discussion w/independent historian: Patient Additional record(s) reviewed:: Prior outpatient record and Prior labs Lab Data Attestation: I reviewed the patient's lab results. Labs: Laboratory Results - last 24 hr 09/18/23 22:34 WBC 8.4 RBC 4.56 Hgb 13.3 Hct 39.9 MCV 87.5 MCH 29.2 MCHC 33.3 RDW Std Deviation 37.4 RDW Coeff of Ricarda 11.7 Plt Count 307 MPV 10.2 Immature Gran % (Auto) 0.200 Neut % (Auto) 50.1 Lymph % (Auto) 39.0 Burt % (Auto) 6.8 Eos % (Auto) 3.2 Baso % (Auto) 0.7 Absolute Neuts (auto) 4.2 Absolute Lymphs (auto) 3.29 Nucleated RBC % 0 D-Dimer Quant (PE/DVT) 0.38 Sodium 142 Potassium 3.2 L Chloride 107 Carbon Dioxide 32.0 Anion Gap 3 L BUN 17 Creatinine 0.82 Estim Creat Clear Calc 117.02 Est GFR (MDRD) Af Amer 107 Est GFR (MDRD) Non-Af 88 BUN/Creatinine Ratio 20.6 H Glucose 100 Calcium 9.0 Troponin I High Sens < 3 L TSH 2.78 Serum , Qual NEGATIVE Radiography Chest X-Ray - ED: 1 View, Read by ED Physician, Normal, Heart, Lungs and Mediastinum Diagnostic Testing: Clinical Impression(s) from Imaging Studies Chest X-Ray 09/18/23 22:37 IMPRESSION: No radiographic evidence of acute cardiopulmonary disease. Electronically Signed: Moody Goodson MD at 23:50 EDT , EKG Initial EKG: Attestation: I personally reviewed and interpreted this EKG as follows: Interpretation: Sinus Tachycardia (Sinus tachycardia at 136. Mild lateral ST depression as well as inferior. These changes appear similar to a previous EKG from November 2021.) Follow-up EKG: Attestation: I personally reviewed and interpreted this EKG as follows: Interpretation: Sinus Tachycardia (Sinus tachycardia at 111 with continued, but less pronounced ST depression in the inferior and lateral leads.) Treatment and Re-Evaluation :: CBC was normal white count 8.4 with a hemoglobin of 13.3. Differential unremarkable. Chemistry studies significant for slightly low potassium at 3.2. Renal function is normal. Troponin is less than 3 and D-dimer is normal at 0.38. test is negative. TSH is normal at 2.78. Portable chest x-ray per my interpretation feels no acute ischemia. Initial EKG is sinus tachycardia at 136 with mild inferior and lateral ST depression. This appears similar to prior study from 2021. Nursing staff noted that the patient's heart rate did go up to 150 for short time and then did come back down. A repeat EKG was obtained that revealed sinus tachycardia at 111. She has continued, but less pronounced ST depression. I do think this is likely rate dependent on degree of ST depression noted. Test results were discussed with the patient. On repeat evaluation she does feel significantly improved and her heart rate is in the 90s. I do feel that a lot of her symptoms are secondary to the stress that she is currently undergoing. She has been on Ativan in the past I will write her a short course of this. She was given p.o. potassium replacement here and I will write 2 additional days of potassium replacement for her as well. Patient comfortable with the plan. Return instructions given. Discharge Plan Triage Chief Complaint: Chest Pain ED Provider: Shelley Strange Dx/Rx/DC Orders Clinical Impression: Palpitations, Anxiety, Hypokalemia Instructions: ED Anxiety Reaction, ED Hypokalemia, ED Palpitations Prescriptions: New lorazepam [Ativan] 0.5 mg tablet 0.5 mg PO BID PRN (Reason: anxiety) Qty: 20 0RF potassium chloride 20 mEq tablet extended release 40 meq PO DAILY Qty: 4 0RF No Action levetiracetam [Keppra] 500 mg tablet 500 mg PO BID omeprazole [omeprazole] 20 mg capsule,delayed release(DR/EC) 20 mg PO DAILY Qty: 30 0RF fluoxetine 40 mg capsule 40 mg PO DAILY Wegovy 0.25 mg/0.5 mL pen injector 0.25 mg subcut Primary Care Provider: Zechariah Chaudhary Referrals: Zechariah Chaudhary MD [Primary Care Provider] - 1-2 Weeks Print Language: Croatian Disposition Disposition: Home, Self Care
[2023-09-18] MEDS: LORazepam 2 MG/ML Syringe 0.5 MG IV (22:46)
[2023-09-18 22:48] LABS: Absolute Lymphocyte Count 3.29 X10^3/uL (0.83-4.51); Absolute Neutrophil Count 4.2 X10^3/uL (2.0-7.7); Basophil# 0.06 X10^3/uL; Basophil% 0.7 % (0-1); Eosinophil# 0.27 X10^3/uL; Eosinophils% 3.2 % (0-5); Hematocrit 39.9 % (37-47); Hemoglobin 13.3 g/dL (12.0-15.0); Lymphocyte # 3.29 X10^3/ul (0.83-4.51); Mean Corp Hgb Conc 33.3 g/dL (32-36); Mean Corpuscular Hgb 29.2 pg (27.0-32.0); Mean Corpuscular Volume 87.5 fL (81-99); Mean Platelet Vol. 10.2 fl (6.2-12.0); Monocyte# 0.57 X10^3/uL; Monocyte% 6.8 % (0-10); NRBC Flagged by Analyzer 0 % (0-5); Neutrophil # 4.23 X10^3/uL (2.7-7.7); Neutrophil % 50.1 % (47-70); Platelet Count 307 K/mm3 (150-450); RBC Distribution Width CV 11.7 % (11.6-14.6); RBC Distribution Width SD 37.4 fl (35.1-43.9); Red Blood Count 4.56 M/mm3 (4.2-5.4); White Blood Count 8.4 K/mm3 (4.4-11.0)
[2023-09-18] MEDS: 0.9% Normal Saline (500mL Bag) 500 ML 1000 ML IV (22:52)
[2023-09-18 22:53] VITALS: PULSE 132; RESP 16; O2SAT 100
[2023-09-18 23:00] VITALS: BP 157/79; PULSE 140; RESP 14; O2SAT 100
[2023-09-18 23:01] LABS: Internal QC Validated? YES +Cl - CLEAR BKGD; Pregnancy, Serum, hCG Quali. NEGATIVE Negative
--- NOTE | 2023-09-18 23:02 | EKG12_ITS ---
Test Reason : REPEAT Blood Pressure : / mmHG Vent. Rate : 111 BPM Atrial Rate : 111 BPM P-R Int : 150 ms QRS Dur : 098 ms QT Int : 338 ms P-R-T Axes : 055 028 017 degrees QTc Int : 459 ms Sinus tachycardia RSR' or QR pattern in V1 suggests right ventricular conduction delay Nonspecific ST and T wave abnormality Abnormal ECG Confirmed by GABY YIN, DEJON ([id number]), editorial manager RODERICK BONNER ([id number]) on 09/24/2023 2:22:44 PM Referred By: Confirmed By:GUDELIA GRIFFIN MD
[2023-09-18] MEDS: Ondansetron 4 MG/2 ML Vial IV (23:03)
[2023-09-18 23:06] LABS: Anion Gap 3 (5-15); BUN 17 mg/dL (7-18); BUN/Creat Ratio 20.6 RATIO (10-20); Chloride 107 mmol/L (98-107); Creatinine, Serum 0.82 mg/dL (0.55-1.02); EST Glomerular Filtration Rate 88 mL/min (>60); Est Glom Filt Rate - Afr Amer 107 mL/min (>60); Estimated Creatinine Clearance 117.02 ml/min; Glucose 100 mg/dL (74-106); Potassium 3.2 mmol/L (3.5-5.1); Sodium Level 142 mmol/L (136-145); Troponin-I HS < 3 pg/mL (3.0-54.0)
[2023-09-18 23:11] LABS: D-Dimer Quantitative (DVT/PE) 0.38 FEU/ug/m (0.27-0.49)
[2023-09-18 23:15] VITALS: BP 143/90; PULSE 112; RESP 16; O2SAT 100
[2023-09-18 23:30] VITALS: BP 131/81; PULSE 80; RESP 14; O2SAT 99
[2023-09-18] MEDS: Potassium Chloride Oral Tablet 20 MEQ 40 MEQ PO (23:33)
[2023-09-18] MEDS: 0.9% Normal Saline (1000mL) 1,000 ML 150 ML IV (23:41)
[2023-09-18 23:45] VITALS: BP 142/86; PULSE 110; RESP 15; O2SAT 100
[2023-09-18 23:47] LABS: Thyroid Stim Hormone (TSH) 2.78 uIU/mL (0.358-3.74)
[2023-09-19] VITALS: BP 131/87; PULSE 100; RESP 23; O2SAT 99
== END 2023-09-19 00:08 | disposition home or self-care (01) ==
PROVIDERS: Emergency Provider Emergency Medicine; PCP Family Medicine; Visit Provider Emergency Medicine
DX: R00.2 Palpitations (principal); F41.9 Anxiety disorder, unspecified; E87.6 Hypokalemia; Z63.79 Other stressful life events affecting family and household
CPT/HCPCS: 71045; 80048; 84443; 84484; 84703; 85025; 85379; 93005; 96361; 96374; 96375; 99284; J7030; J7040; A4216; J2405